=== PATIENT | female | born 1940 | race Two or more races ===

== ENCOUNTER 2024-04-16 09:57 | Outpatient (AMB) | payer MEDICARE, SELFPAY ==
[2024-04-16 10:49] VITALS: BP 157/79; PULSE 82; RESP 18; TEMP 36.6; O2SAT 95; BMI 24.6
--- NOTE | 2024-04-16 10:49 | PD.ORTHCLVIS ---
Vital signs 04/16/24 10:49 Height 1.68 m Height Method Stated Weight 69.626 kg Weight Measurement Method Standing Scale BMI 24.6 BP 157/79 H Blood Pressure Source Automatic Cuff Blood Pressure Location Right Upper Arm Position Sitting Respiration 18 Pulse 82 Pulse Source Monitor Temp 97.9 F Temp Source Temporal Artery Scan Pulse Oximetry (%) 95 Oxygen Delivery Method Room Air Med/Allergies Allergies & Medications Allergies No Known Allergies Allergy (Verified 04/16/24 10:51) Medication Reconciliation atorvastatin 10 mg tablet 10 mg PO QPM 01/09/24 [History Confirmed 04/16/24] cyclobenzaprine 5 mg tablet 5 mg PO HS 01/09/24 [History Confirmed 04/16/24] hydrochlorothiazide 25 mg tablet 25 mg PO QAM 01/09/24 [History Confirmed 04/16/24] losartan 50 mg tablet 50 mg PO DAILY 01/09/24 [History Confirmed 04/16/24] acetaminophen 500 mg tablet (Acetaminophen Extra Strength) 1,000 mg (2 x 500 mg) PO Q6H PRN pain #90 tabs 01/12/24 [Rx Confirmed 04/16/24] aspirin 81 mg tablet,delayed release 81 mg PO BID #60 tabs 01/12/24 [Rx Confirmed 04/16/24] doxycycline hyclate 100 mg tablet 100 mg PO BID #14 tabs 01/12/24 [Rx Confirmed 04/16/24] meloxicam 7.5 mg tablet 7.5 mg PO QDAY #30 tabs 01/12/24 [Rx Confirmed 04/16/24] oxycodone 5 mg tablet 5 mg PO Q6H PRN pain #28 tabs 01/12/24 [Rx Confirmed 04/16/24] sennosides 8.6 mg-docusate sodium 50 mg tablet (Senna-S) 1 tab-cap PO QDAY #30 tabs 01/12/24 [Rx Confirmed 04/16/24] cyclobenzaprine 5 mg tablet 5 mg PO QHS PRN muscle spasm #30 tabs 02/03/24 [Rx Confirmed 04/16/24] gabapentin 300 mg capsule 300 mg PO QHS #60 caps 04/16/24 [Rx] Subjective Visit Visit for: follow up visit Immunization / Flu Flu Vaccine in the Last 12 Months: Yes Flu Vaccine Exclusion Criteria: Already Received History of Present Illness Chief complaint: 6 WEEK FOLLOW UP Date of 1st surgery (if applicable): 01/12/24 Steff is 3 months postop s/p R TKA. SHe is doing well. She has significant left knee pain that is affecting her quality of life. She has tried antiinflammatories in the past with minimal relief and physical therapy. Personal History Occupation: RETIRED Red flag PMH: none Pain Pain level (0-10): 1 Pain duration: COMES AND GOES Pain location: outside (lateral) Pain quality: aching Pain timing: night and increases with activity Associated signs & symptoms: none Ambulatory data Ambulatory device: none Treatments Improvement with previous injections: No Improvement with PT: No Improvement with NSAIDS: n/a Review of Systems Review of Systems: All systems negative unless otherwise noted in HPI. Exam Exam Patient is in no acute distress and is cooperative with the examination today. Patient has a normal mood and affect. Breathing is nonlabored. In no respiratory distress. Bilateral extremities were evaluated and demonstrates sensation intact to light touch. Palpable pedal pulses are present. No significant edema is present. Right knee in ision is clean dry and intact Right total knee replacement is in good alignment position. Left knee xrays demosntrate valgus Alignment and significant arthritis. There is significant osteophytes as well and complete obliteration of the left knee joint space. Assessment and Plan Problem List (1) Degenerative arthritis of knee, bilateral: Status: Acute Plan: Patient is doing well s/p R TKA. She has significant left Knee arthritis and has failed conservative treatment. We discussed total knee replacement for the left side and she would like to proceed with surgery. She recovered very well from the right. The nature and purpose of the total knee replacement, alternative method(s) of treatment, the material risks involved, and the possibility of complications were fully explained to the patient. The patient does NOT have any of the following contraindications to TKA: - Active infection of the knee joint, OR - Active systemic bacteremia, OR - Active skin infection or open wound at surgical site, OR - Neuropathic arthritis, OR - Severe, rapidly progressive neurological disease, OR - Severe medical condition that makes risks of surgery outweigh the potential benefit The patient was told the most common risks and complications associated with a total knee replacement include, but are not limited to: blood clots in the leg, fatal pulmonary embolism, dislocation of the prosthesis, intraoperative and postoperative fractures of the femur or tibia, infection, failure of the prosthesis or grafting materials, complications from anesthesia, reactions to blood transfusions, postoperative leg length inequality, instability of the knee replacement, nerve damage or injury, vascular injury, delayed wound healing, infection, other injury or even . In addition, there are risks associated with anesthesia given during this operation. Also, the patient was told that after undergoing a total knee replacement there may still be persistent pain or disability. The patient was informed that the success of this operation in part depends upon the mechanical devices which are going to be implanted and that these devices can fail or malfunction, and may need to be repaired or replaced and there are no guarantees as to the longevity of this device or its parts and that it or its parts could fail prematurely. The patient was also notified that during the course of surgery, there may be a need to use bone graft from donors, and that any bone graft used will be carefully screened for communicable diseases, including AIDS, hepatitis, Jostin-Creutzfeldt, or other diseases, but despite the screening procedures, there is a small chance that they could contract one of these diseases. Finally, the patient was asked to follow completely and fully with all advice and recommended treatments, and that recovery and ultimate outcome are affected by their compliance with recommended treatment. We discussed the risks, benefits and treatment alternatives, and the patient is interested in proceeding with surgery. We will try to set this up as expeditiously as possible. Plan f/u weeks outpatient pt Advanced Care Planning Discussion Advance care planning discussed with:: patient Office Procedures GNS Level of Care Nursing/Assessment Patient Status: Established Patient Nursing Assessment/Reassesment: Medication Reconciliation, Update PMH in EMR and Vital Signs Coordination of Care: Complex Care and Chronic Disease 1-5, Education Complex Pt/Fam, Consent,records obtained, informed consent, Results/Orders obtained and Staff clarify orders Special Needs: Language special needs Established Patient Charge Established Patient Point Assignment: 95 Established Patient Point Charge: EP Level 3 (80-115) Past Medical History Past Medical History Have you ever been diagnosed with any of the following: Neurological Problems Seizures: No Cardiology Problems Hypercholesterolemia: Yes Congestive Heart Failure: No Hypertension: Yes Respiratory Problems Chronic Obstructive Pulmonary Disease (COPD): No Smoking: No Genital/Urinary Problems Renal Disease: No Reproductive Problems Previous Pregnancies: Yes Musculoskeletal Problems Arthritis: Yes Osteoporosis: Yes Carpal Tunnel Syndrome: Yes (bilateral) Endocrine Problems Diabetes Mellitus Type 1: No Diabetes Mellitus Type 2: No Psychologic Problems Depression: Yes Other Problems Hospitalization: No Shingles: No Blood Transfusions: Yes (platelets) Blood Transfusion Reaction: No Anesthesia Reactions: No Measles: Yes Rubella ([place] Measles): Yes Cancer: No Surgical History Total Knee Replacement: Yes Hysterectomy: Yes
== END 2024-04-16 11:20 | disposition home or self-care (01) ==
LOC: HODSRG 09:57
PROVIDERS: PCP Orthopaedic Surgery Adult Reconstructive Orthopaedic Surgery; Referring Provider Orthopaedic Surgery Adult Reconstructive Orthopaedic Surgery; Supervising Provider Orthopaedic Surgery Adult Reconstructive Orthopaedic Surgery; Visit Provider Orthopaedic Surgery Adult Reconstructive Orthopaedic Surgery
DX: M17.0 Bilateral primary osteoarthritis of knee (principal); Z96.651 Presence of right artificial knee joint; I10 Essential (primary) hypertension; E78.00 Pure hypercholesterolemia, unspecified
CPT/HCPCS: 99213; G0463

== ENCOUNTER 2024-05-12 11:00 | Outpatient (RCR) | payer MEDICARE, SELFPAY ==
--- NOTE | 2024-04-27 11:07 | PT.OIERPT ---
PT OP Initial Eval Patient Information Outpatient Physical Therapy Treatment Date: 04/27/24 Visit Reasons: Cervicalgia AND SHOULDER Medical Diagnosis: M54.2 M25.512 Treatment Dx #1: neck pain Start of Care: 04/27/24 Date of Onset: November 2023 Smoking Status Smoking Status: Never smoker Initial Assessment Subjective: Pt is 83 yr old mexican speaking female who c/o neck pain that is intense, constant and is usually 8-9/10. Increased pain with looking down, up. After sitting for a while she feels pain/pressure running up the head. She does ADL's and HH chores with pain. PLOF: prior to onset of neck pain she had no pain with HH chores or ADL's and turning the head. PMH: OA B hands, HTN, CTR, R TKA Imaging: Xray of neck in EMR Moderate to advanced degenerative disc disease C5-C6, C6-C7 with moderate, bilateral neural foraminal stenosis at these levels? ? Pt goal: less pain Objective: C/S ArOM: Flexion: full with high pain Extension: 50% with pain Rotation: R: 45%, L: 50% of full with pain TTP: high of posterior neck mm's Assessment: Pt presents with decreased ROM of C/S and pain consistent with Xray that reveals DDD. Pt will most likely feel temporary relief after therapy visits and pain will return. She has poor rehab potential to meet goals due to severity of ssx. Short Term and [employer] Goals 1. Ind with HEP ? 2. Improved B rotation to at least 60% of full ? 3. Decreased TTP of C/S paraspinals from mod to min ? 4. Pt will turn head L to R x5 with <=5/10 pain Treatment Plan 90 day POC 1. Manual therapy ? 2. Therex ? 3. Modalities as indicated, mechanical traction, estim, moist heat, ice Frequency and Duration: 1-2x a week for 6 visits Certification Dates: 04/27/24 to 06/25/24 Procedure Charges OP PT Eval Mod Complex 30 minutes: Yes
--- NOTE | 2024-05-04 12:37 | PT.ODAYNRPT ---
PT Outpatient Daily Note OP Daily Note Outpatient Physical Therapy Treatment Date: 05/04/24 Visit Reasons: Cervicalgia AND SHOULDER Subjective: Same as time of evaluation Objective: See F/S for therex MT: STM L levator scap mm x5' Mechanical traction C/S x7 at 10 lbs MHP: x7' C/S Assessment: Moderate TTP of L levator scapula mm with MT. Good response to mechanical traction Plan: Continue per POC Length of Time (minutes) of Treatment: 30 Minutes Procedure Charges Therapeutic Exercise 30 minutes: Yes
--- NOTE | 2024-05-12 13:11 | PT.ODAYNRPT ---
PT Outpatient Daily Note OP Daily Note Outpatient Physical Therapy Treatment Date: 05/12/24 Visit Reasons: Cervicalgia AND SHOULDER Subjective: Some neck pain with turning head Objective: See F/S for therex MT: STM L levator scap mm x5' Mechanical traction C/S x7 at 10 lbs MHP: x7' C/S Assessment: Moderate TTP of L levator scapula mm with MT. Good response to mechanical traction Plan: Continue per POC Length of Time (minutes) of Treatment: 30 Minutes Procedure Charges Therapeutic Exercise 30 minutes: Yes
== END 2024-05-22 23:59 | disposition home or self-care (01) ==
LOC: CPTX 11:00
PROVIDERS: PCP Nurse Practitioner Family; Referring Provider Nurse Practitioner Family; Visit Provider Nurse Practitioner Family
DX: M54.2 Cervicalgia (principal); M25.512 Pain in left shoulder
CPT/HCPCS: 97110; 97162

== ENCOUNTER → 2024-05-26 | Outpatient (CLI) | payer MEDICARE, SELFPAY ==
--- NOTE | 2024-05-26 16:00 | XR_ITS ---
Examination: CT left lower extremity, without contrast. 2-D sagittal reconstructions. 2-D coronal reconstructions. 3-D reconstructions. Date and time of exam:May 26, 2024 1624 hours INDICATIONS: Left knee pain 3 years CTDI: vol (mGy):9.73 DLP: (mGycm):721 Technique: Multiple 1.25 mm axial sections of the left lower extremity without intravenous contrast have been obtained. 2-D sagittal and coronal reconstructions have been obtained. 3-D reconstructions have been obtained. Low dose protocols were performed. One or more of the following dose reduction techniques were used; automated exposure control, adjustment of the mA and/or KV according to patient size, use of iterative reconstruction technique. Findings: Significant osteopenia Mild to moderate narrowing left hip joint No fracture or left hip dislocation Moderate to advanced tricompartment osteoarthritis, advanced lateral joint space with marked narrowing and subarticular sclerosis No fracture IMPRESSION: Moderate to advanced tricompartment osteoarthritis, advanced involving the lateral joint space
== END | disposition home or self-care (01) ==
PROVIDERS: PCP Nurse Practitioner Family; Referring Provider Orthopaedic Surgery Adult Reconstructive Orthopaedic Surgery; Visit Provider Orthopaedic Surgery Adult Reconstructive Orthopaedic Surgery
DX: M17.12 Unilateral primary osteoarthritis, left knee (principal)
CPT/HCPCS: 73700

== ENCOUNTER → 2024-06-03 | Outpatient (CLI) | payer MEDICARE, SELFPAY ==
--- NOTE | 2024-06-03 15:30 | XR_ITS ---
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 Findings: 3:00 oval mass indistinct margins taller than wide 18 x 8 x 18 mm 3:00 oval mass circumscribed 7 x 5 x 5 mm 4:00 oval mass 12 Indistinct margins 8 x 8 x 7 mm 5:00 oval mass circumscribed 12 x 8 mm IMPRESSION: BI-RADS Category 4: Suspicious for malignancy Suspicious nodules at the 3 to 4:00 position left breast Biopsy of both nodules is needed to exclude breast carcinoma These nodules are amenable to ultrasound-guided breast biopsy for diagnosis
== END | disposition home or self-care (01) ==
PROVIDERS: PCP Nurse Practitioner Family; Referring Provider Nurse Practitioner Family; Visit Provider Nurse Practitioner Family
DX: N63.25 Unspecified lump in the left breast, overlapping quadrants (principal); N63.23 Unspecified lump in the left breast, lower outer quadrant
CPT/HCPCS: 76641

== ENCOUNTER 2024-06-04 08:41 | Outpatient (AMB) | payer MEDICARE, SELFPAY ==
[2024-06-04 08:55] VITALS: BP 143/84; PULSE 95; RESP 18; TEMP 36.4; O2SAT 97; BMI 25.2
--- NOTE | 2024-06-04 08:55 | PD.ORTHCLVIS ---
Vital signs 06/04/24 08:55 Height 1.68 m Height Method Stated Weight 71.242 kg Weight Measurement Method Standing Scale BMI 25.2 BP 143/84 H Blood Pressure Source Automatic Cuff Blood Pressure Location Right Upper Arm Position Sitting Respiration 18 Pulse 95 Pulse Source Monitor Temp 97.6 F Temp Source Temporal Artery Scan Pulse Oximetry (%) 97 Oxygen Delivery Method Room Air Med/Allergies Allergies & Medications Allergies No Known Allergies Allergy (Verified 06/04/24 08:56) Medication Reconciliation atorvastatin 10 mg tablet 10 mg PO QPM 01/09/24 [History Confirmed 06/04/24] cyclobenzaprine 5 mg tablet 5 mg PO HS 01/09/24 [History Confirmed 06/04/24] hydrochlorothiazide 25 mg tablet 25 mg PO QAM 01/09/24 [History Confirmed 06/04/24] losartan 50 mg tablet 50 mg PO DAILY 01/09/24 [History Confirmed 06/04/24] acetaminophen 500 mg tablet (Acetaminophen Extra Strength) 1,000 mg (2 x 500 mg) PO Q6H PRN pain #90 tabs 01/12/24 [Rx Confirmed 06/04/24] meloxicam 7.5 mg tablet 7.5 mg PO QDAY #30 tabs 01/12/24 [Rx Confirmed 06/04/24] cyclobenzaprine 5 mg tablet 5 mg PO QHS PRN muscle spasm #30 tabs 02/03/24 [Rx Confirmed 06/04/24] gabapentin 300 mg capsule 300 mg PO QHS #60 caps 04/16/24 [Rx Confirmed 06/04/24] alendronate 70 mg tablet 70 mg PO QWEEK 06/04/24 [History Confirmed 06/04/24] Subjective Visit Visit for: follow up visit and knee Immunization / Flu Flu Vaccine in the Last 12 Months: Yes Flu Vaccine Exclusion Criteria: Already Received History of Present Illness Chief complaint: Pre-op L TKA Date of 1st surgery (if applicable): 01/12/24 Steff is 4.5 months postop s/p R TKA. SHe is doing well. She is here today for her preop visit for the left knee. The left knee is affecting her quality life and happiness and she is excited to get this done. We spent over 20 minutes answering all her questions Personal History Occupation: unemployed Red flag PMH: none Pain Pain level (0-10): 6 Pain duration: constant Pain location: inside (medial), outside (lateral), anterior and posterior Pain quality: sharp, dull and aching Pain timing: increases with activity and stairs Associated signs & symptoms: weakness and stiffness Ambulatory data Ambulatory device: cane Treatments Improvement with previous injections: No Improvement with PT: No Improvement with NSAIDS: n/a Review of Systems Review of Systems: All systems negative unless otherwise noted in HPI. Exam Exam Patient is in no acute distress and is cooperative with the examination today. Patient has a normal mood and affect. Breathing is nonlabored. In no respiratory distress. Bilateral extremities were evaluated and demonstrates sensation intact to light touch. Palpable pedal pulses are present. No significant edema is present. Right knee in ision is clean dry and intact Right total knee replacement is in good alignment position. Left knee xrays demosntrate valgus Alignment and significant arthritis. There is significant osteophytes as well and complete obliteration of the left knee joint space. Assessment and Plan Problem List (1) Degenerative arthritis of knee, bilateral: Status: Acute Plan: Patient is doing well s/p R TKA. She has significant left Knee arthritis and has failed conservative treatment. We discussed total knee replacement for the left side and she would like to proceed with surgery. She recovered very well from the right. The nature and purpose of the total knee replacement, alternative method(s) of treatment, the material risks involved, and the possibility of complications were fully explained to the patient. The patient does NOT have any of the following contraindications to TKA: - Active infection of the knee joint, OR - Active systemic bacteremia, OR - Active skin infection or open wound at surgical site, OR - Neuropathic arthritis, OR - Severe, rapidly progressive neurological disease, OR - Severe medical condition that makes risks of surgery outweigh the potential benefit The patient was told the most common risks and complications associated with a total knee replacement include, but are not limited to: blood clots in the leg, fatal pulmonary embolism, dislocation of the prosthesis, intraoperative and postoperative fractures of the femur or tibia, infection, failure of the prosthesis or grafting materials, complications from anesthesia, reactions to blood transfusions, postoperative leg length inequality, instability of the knee replacement, nerve damage or injury, vascular injury, delayed wound healing, infection, other injury or even . In addition, there are risks associated with anesthesia given during this operation. Also, the patient was told that after undergoing a total knee replacement there may still be persistent pain or disability. The patient was informed that the success of this operation in part depends upon the mechanical devices which are going to be implanted and that these devices can fail or malfunction, and may need to be repaired or replaced and there are no guarantees as to the longevity of this device or its parts and that it or its parts could fail prematurely. The patient was also notified that during the course of surgery, there may be a need to use bone graft from donors, and that any bone graft used will be carefully screened for communicable diseases, including AIDS, hepatitis, Jostin-Creutzfeldt, or other diseases, but despite the screening procedures, there is a small chance that they could contract one of these diseases. Finally, the patient was asked to follow completely and fully with all advice and recommended treatments, and that recovery and ultimate outcome are affected by their compliance with recommended treatment. We discussed the risks, benefits and treatment alternatives, and the patient is interested in proceeding with surgery. We will try to set this up as expeditiously as possible. Plan f/u weeks outpatient pt Advanced Care Planning Discussion Advance care planning discussed with:: patient Office Procedures GNS Level of Care Nursing/Assessment Patient Status: Established Patient Nursing Assessment/Reassesment: Medication Reconciliation, Update PMH in EMR and Vital Signs Coordination of Care: Complex Care and Chronic Disease 1-5, Education Complex Pt/Fam, Consent,records obtained, informed consent, 2-3 Insurance Autorizations needed, Results/Orders obtained and Staff clarify orders Special Needs: Language special needs Established Patient Charge Established Patient Point Assignment: 115 Established Patient Point Charge: EP Level 3 (80-115) Past Medical History Past Medical History Have you ever been diagnosed with any of the following: Neurological Problems Seizures: No Cardiology Problems Hypercholesterolemia: Yes Congestive Heart Failure: No Hypertension: Yes Respiratory Problems Chronic Obstructive Pulmonary Disease (COPD): No Smoking: No Genital/Urinary Problems Renal Disease: No Reproductive Problems Previous Pregnancies: Yes Musculoskeletal Problems Arthritis: Yes Osteoporosis: Yes Carpal Tunnel Syndrome: Yes (bilateral) Endocrine Problems Diabetes Mellitus Type 1: No Diabetes Mellitus Type 2: No Psychologic Problems Depression: Yes Other Problems Hospitalization: No Shingles: No Blood Transfusions: Yes (platelets) Blood Transfusion Reaction: No Anesthesia Reactions: No Measles: Yes Rubella ([place] Measles): Yes Cancer: No Surgical History Total Knee Replacement: Yes Hysterectomy: Yes
== END 2024-06-04 09:10 | disposition home or self-care (01) ==
LOC: HODSRG 08:41
PROVIDERS: PCP Nurse Practitioner Family; Referring Provider Nurse Practitioner Family; Supervising Provider Orthopaedic Surgery Adult Reconstructive Orthopaedic Surgery; Visit Provider Orthopaedic Surgery Adult Reconstructive Orthopaedic Surgery
DX: M17.0 Bilateral primary osteoarthritis of knee (principal); I10 Essential (primary) hypertension; E78.00 Pure hypercholesterolemia, unspecified; Z96.651 Presence of right artificial knee joint
CPT/HCPCS: 99213; G0463

== ENCOUNTER 2024-06-10 10:00 | Outpatient (RCR) | payer MEDICARE, SELFPAY ==
--- NOTE | 2024-05-26 11:23 | PT.ODAYNRPT ---
PT Outpatient Daily Note OP Daily Note Outpatient Physical Therapy Treatment Date: 05/26/24 Visit Reasons: neck/shoulder pain Subjective: Some neck pain with turning head and she points to the L side Objective: See F/S for therex MT: STM L levator scap mm x5' Mechanical traction C/S x7 at 10 lbs MHP: x7' C/S Assessment: Moderate TTP of L levator scapula mm with MT that radiates into the back of the head. Good response to mechanical traction Plan: Continue per POC Length of Time (minutes) of Treatment: 30 Minutes Procedure Charges Therapeutic Exercise 30 minutes: Yes
--- NOTE | 2024-06-02 11:26 | PTNOTE_ITS ---
PT Outpatient Daily Note OP Daily Note Outpatient Physical Therapy Treatment Date: 06/02/24 Visit Reasons: neck/shoulder pain Subjective: Pt reports neck is the same, no changes in symptoms to report at this time. Objective: Please see flow sheet for ther ex list. Assessment: Interventions completed with pain, poor activity tolerance due to aggravating symptoms. Plan: Pt has one visit left. Length of Time (minutes) of Treatment: 30 Minutes INTERMEDIATE ACCOUNTANT Service Modifier Method I: Divide the number of min of care provided by the INTERMEDIATE ACCOUNTANT/JENNIFER by the total min of care provided then multiply by 100. If greater than 11 percent modifier is required. Method II: Divide the total time of care provided to patient by 10 (round to the nearest whole number) and add 1 min. to set the minimum time requirement. If treatment total was 60 min., then 10% of 6 min PT CQ modifier applied: CQ Modifier applied Procedure Charges Therapeutic Exercise 30 minutes: Yes
--- NOTE | 2024-06-10 14:04 | PT.ODS1RPT ---
PT OP Progress/Discharge Note Date of Service: 06/10/24 Progress Note/DC Note Progress Note/Discharge Note: DC Note Patient Information Visit Reasons: neck/shoulder pain Service Continue Service or Discharge: Discharge Discharge Date: 06/10/24 Status Subjective: Some neck pain with turning head and she points to the L side. Temporary relief with therapy visits. Objective: See F/S for therex MT: STM L levator scap mm x5' Mechanical traction C/S x7 at 10 lbs MHP: x7' C/S C/S AROM: Rotation: R: 40% of full L: 60% TTP: moderate/min of paraspinals Assessment: Pt has attended 6/6 sessions with fair progress with therapy goals. There is less TTP of L levator scapula mm with manual therapy. Pt has a little better rotation to the L to meet the goal but the R is still limited. and hasn't met the goal. Good response to mechanical traction for temporary relief. Progress with goals has plateaued. Plan: D/C with HEP Procedure Charges Therapeutic Exercise 30 minutes: Yes
== END 2024-06-22 23:59 | disposition home or self-care (01) ==
LOC: CPTX 10:00
PROVIDERS: PCP Nurse Practitioner Family; Referring Provider Nurse Practitioner Family; Visit Provider Nurse Practitioner Family
DX: M54.2 Cervicalgia (principal); M25.512 Pain in left shoulder
CPT/HCPCS: 97110

== ENCOUNTER → 2024-06-28 | Day surgery (SDC) | payer MEDICARE, SELFPAY ==
[2024-06-25 11:46] VITALS: BMI 25.4
[2024-06-25 13:17] LABS: Basophils % (Auto) 1 % (0-2.5); Eosinophils # (Auto) 0.3 Thou/mm3 (0.0-0.5); Eosinophils % (Auto) 4 % (0-10); Hematocrit 37.9 % (36.0-46.0); Hemoglobin 12.8 g/dL (12.0-16.0); Immature Granulocytes % (Auto) 0 % (0-0); Immature Granulocytes Auto 0.02 Thou/mm3 (0.00-0.00); Lymphocytes # (Auto) 2.2 Thou/mm3 (1.0-4.8); Lymphocytes % (Auto) 27 % (10-50); Mean Corpuscular HGB Conc 33.8 g/dl (31.0-37.0); Mean Corpuscular Hemoglobin 26.1 pg (25.0-35.0); Mean Corpuscular Volume 77 fL (80-100); Monocytes % (Auto) 13 % (0-12); Neutrophils # (Auto) 4.4 Thou/mm3 (1.8-7.7); Neutrophils % (Auto) 56 % (37-80); Nucleated Red Blood Cell % 0 /100 WBC (0); Platelet Count 306 Thou/mm3 (140-440); RDW Standard Deviation 40.4 fL (36.4-46.3); Red Blood Count 4.91 Miln/mm3 (4.00-5.20)
[2024-06-25 13:31] LABS: INR 1.2 (0.9-1.3); Partial Thromboplastin Time 28.5 Seconds (22.0-36.0); Prothrombin Time 12.8 Seconds (9.0-12.2)
[2024-06-25 13:39] LABS: Alanine Aminotransferase 22 U/L (10-49); Albumin, Serum 4.9 gm/dL (3.4-4.8); Albumin/Globulin Ratio 1.6 (1.2-2.2); Alkaline Phosphatase 78 U/L (46-116); Anion Gap 10 (7-16); Aspartate Amino Transferase 27 U/L (0-34); BUN/Creatinine Ratio 16 Ratio (12-20); Bilirubin,Total 0.5 mg/dL (0.3-1.2); Blood Urea Nitrogen 13 mg/dL (9-23); Calcium 9.4 mg/dL (8.3-10.6); Calcium (Corrected) 9.4 mg/dL (8.5-10.1); Carbon Dioxide 25.6 mMol/L (20.0-31.0); Chloride 101 mMol/L (98-107); Creatinine (Component) 0.8 mg/dL (0.6-1.3); Estimated Creatinine Clearance 53.9 mL/min (>60); Globulin 3.1 gm/dL (2.3-3.5); Glucose 89 mg/dL (74-106); Osmolality,Calculated 272 (275-295); Sodium 137 mMol/L (136-145); eGFR > 60 See Note
[2024-06-28 06:10] VITALS: BP 149/68; PULSE 73; RESP 14; TEMP 36.5; O2SAT 97; BMI 25.4
--- NOTE | 2024-06-28 06:23 | SUR.PREOP ---
Pt c/o productive cough with yellow thick phlegm which has progressively gotten worse since Wendy. States she is also dealing with a possible UTI and is currently taking Metronidazole for that which began 06/22/24. C/O back pain as well. Dr. Casillas and Dr. Prasad made aware, both agree to reschedule procedure due to patient's symptoms.
--- NOTE | 2024-06-28 06:25 | SUR.PREOP ---
Pt made aware to reschedule procedure and see her primary care physician for further care.
== END | disposition home or self-care (01) ==
LOC: S2EX 06:08
PROVIDERS: Anesthesiology; PCP Nurse Practitioner Family; Referring Provider Orthopaedic Surgery Adult Reconstructive Orthopaedic Surgery; Visit Provider Orthopaedic Surgery Adult Reconstructive Orthopaedic Surgery
PROC: (CPT 27447; principal; 2024-06-28 07:30)
DX: M17.12 Unilateral primary osteoarthritis, left knee (principal); Z53.9 Procedure and treatment not carried out, unspecified reason
CPT/HCPCS: 27447; 36415; 80053; 85025; 85610; 85730

== ENCOUNTER 2024-07-12 18:46 | Day surgery (SDC) | payer MEDICARE, SELFPAY ==
[2024-07-09 06:49] VITALS: BMI 25.7
[2024-07-09 09:11] LABS: Basophils # (Auto) 0.1 Thou/mm3 (0.0-0.2); Basophils % (Auto) 1 % (0-2.5); Eosinophils # (Auto) 0.2 Thou/mm3 (0.0-0.5); Eosinophils % (Auto) 3 % (0-10); Hemoglobin 12.3 g/dL (12.0-16.0); Immature Granulocytes % (Auto) 0 % (0-0); Immature Granulocytes Auto 0.02 Thou/mm3 (0.00-0.00); Lymphocytes # (Auto) 2.3 Thou/mm3 (1.0-4.8); Lymphocytes % (Auto) 26 % (10-50); Mean Corpuscular HGB Conc 33.2 g/dl (31.0-37.0); Mean Corpuscular Hemoglobin 25.8 pg (25.0-35.0); Mean Corpuscular Volume 78 fL (80-100); Monocytes # (Auto) 0.8 Thou/mm3 (0.0-0.8); Monocytes % (Auto) 9 % (0-12); Neutrophils # (Auto) 5.3 Thou/mm3 (1.8-7.7); Neutrophils % (Auto) 61 % (37-80); Nucleated Red Blood Cell % 0 /100 WBC (0); Platelet Count 417 Thou/mm3 (140-440); RDW Standard Deviation 39.7 fL (36.4-46.3); Red Blood Count 4.76 Miln/mm3 (4.00-5.20); White Blood Count 8.8 Thou/mm3 (3.6-11.0)
[2024-07-09 09:21] LABS: Alanine Aminotransferase 24 U/L (10-49); Albumin, Serum 4.8 gm/dL (3.4-4.8); Albumin/Globulin Ratio 1.5 (1.2-2.2); Alkaline Phosphatase 78 U/L (46-116); Anion Gap 10 (7-16); Aspartate Amino Transferase 27 U/L (0-34); BUN/Creatinine Ratio 20 Ratio (12-20); Bilirubin,Total 0.5 mg/dL (0.3-1.2); Blood Urea Nitrogen 12 mg/dL (9-23); Calcium 9.7 mg/dL (8.3-10.6); Calcium (Corrected) 9.7 mg/dL (8.5-10.1); Carbon Dioxide 27.9 mMol/L (20.0-31.0); Chloride 102 mMol/L (98-107); Creatinine (Component) 0.6 mg/dL (0.6-1.3); Estimated Creatinine Clearance 72.3 mL/min (>60); Globulin 3.3 gm/dL (2.3-3.5); Glucose 103 mg/dL (74-106); Osmolality,Calculated 279 (275-295); Potassium 3.3 mMol/L (3.4-5.1); Sodium 140 mMol/L (136-145); Total Protein 8.1 gm/dL (5.7-8.2); eGFR > 60 See Note
[2024-07-09 09:54] LABS: INR 1.2 (0.9-1.3); Partial Thromboplastin Time 26.7 Seconds (22.0-36.0); Prothrombin Time 12.6 Seconds (9.0-12.2)
[2024-07-12] VITALS (21 sets, daily range): BP systolic 101–140; BP diastolic 57–91; PULSE 66–94; RESP 13–20; TEMP 36.1–36.5; O2SAT 93–99; BMI 25.1
[2024-07-12] MEDS: PREGABALIN 75 MG CAPSULE PO (10:37)
[2024-07-12] MEDS: ACETAMINOPHEN 325 MG TABLET 650 MG PO (10:37)
[2024-07-12] MEDS: MELOXICAM 7.5 MG TABLET PO (10:37)
[2024-07-12] MEDS: RINGERS LACTATED 1000 ML 1,000 ML 20 ML IV (10:38)
--- NOTE | 2024-07-12 14:00 | XR_ITS ---
Examination: Knee, left , 3 views Technique: Knee AP, lateral, oblique 3 views Date and time of exam: July 12, 2024 1419 hours INDICATIONS: Postop knee arthroplasty FINDINGS: Significant osteopenia Total left knee arthroplasty. Satisfactory alignment No fractures IMPRESSION: Total left knee arthroplasty with satisfactory alignment
--- NOTE | 2024-07-12 14:37 | PD.SUROPNT ---
Date of Procedure 07/12/24 Pre Op Diagnosis left knee osteoarthritis Post Op Diagnosis left knee osteoarthritis Procedure left total knee replacement Findings full thickness cartilage loss and osteophytes, osteoporotic bone Procedure Description Indication: The patient is a 83 year old who has a long history of left knee pain. X-rays show degenerative arthritis involving the knee. Over the past several years the patient has had increasing pain, progressive limitation in function. He has failed conservative measures including activity modification, physical therapy, injections, anti-inflammatories, and assistive devices. After a lengthy discussion of the risks and benefits, the patient presents now for total knee replacement. The nature and purpose of the total knee replacement, alternative method(s) of treatment, the material risks involved, and the possibility of complications were fully explained to the patient. The patient was told the most common risks and complications associated with a total knee replacement include, but are not limited to blood clots in the leg, fatal pulmonary embolism, dislocation of the prosthesis, intraoperative and postoperative fractures of the femur or tibia, infection, failure of the prosthesis or grafting materials, complications from anesthesia, reactions to blood transfusions, postoperative leg length inequality, instability of the knee replacement, nerve damage or injury, vascular injury, delayed wound healing, infections, other injury or even . In addition, there are risks associated with anesthesia given during this operation, temporary or permanent numbness on the skin lateral to the incision can be a complication unique to total knee surgery, and kneeling can be painful after knee replacement surgery. Also, the patient was told that after undergoing a total knee replacement there may still be pain or disability. We discussed with the patient that we will be using a robot-assisted technology. We discussed that there is a possibility of converting to manual instrumentation. The patient was informed that the success of this operation in part depends upon the mechanical devices which are going to be implanted and that these devices can fail or malfunction, and may need to be repaired or replaced and there are no guarantees as to the longevity of this device or its part and that it or its parts could fail prematurely. Finally, the patient was asked to follow completely and fully with all advice and recommended treatments, and that recovery and ultimate outcome are affected by their compliance with recommended treatment. Surgical technique: Patient was marked and consented in the pre-operative area. The patient was brought to the operating room and placed on the operating table in a supine position. Prior to positioning, a timeout procedure was performed between the surgeon, the anesthesiologist, and the nursing staff where the patient and the operative side were identified and confirmed. After adequate general anesthetic was obtained, the left lower extremity was prepped and draped in the usual sterile fashion. A weight based dose of Cefazolin were administered within 1 hour prior to incision. The robot was preregistered and calirated before the incision. The extremity was exsanguinated with an esmarch badge and tourniquet inflated to 250mmHg. A midline incision was made. A median parapatellar arthrotomy was made. The patella was subluxed laterally. A medial release was performed to expose the medial tibia. His femoral and tibial pins were placed through an intra incisional manner for both cases. Every effort was made to ensure that the distalmost aspect of the pin was hung in the second cortex. The arrays were then tightened several times to ensure that it was fixed for the remainder of the case. Both femoral and tibial checkpoints were then placed. We then went through the registration process of the bone. We then assessed the knee deformity and attempted to correct it. We also used the robot to aid in judging laxity in both extension and flexion. Final based on laxity and alignment we changed the preoperative assessment to obtain proper proper implant positioning and to correct deformity. Attention was then placed to the tibia. We made a tibial cut using the robot ensuring that both the MCL and the patella tendon were protected with retractors. We then went to the femur and made the posterior cut followed by the anterior cut and the anterior chamfer. The bone was then removed and we made a distal femur cut and a posterior chamfer cut. We verified all cuts. There was found to be some attenuation of the mcl. A trial reduction was performed with a size 5 femoral component and a size 4 keeled tibial component. CR implants were tried and we prepared it ultimately for a PS. The patella tracked centrally, and no lateral retinacular release was necessary. The trial implants were removed. The arrays, pins, and checkpoints were all removed. We performed a verification that all pins were removed. The cut bone surfaces were lavaged. A size 5 left femoral component, a size 4 keeled tibial component were impacted into position using 2 bags of palacos. A trial insert was placed and a size 31 patella was cemented into position. The knee was left in extension until the cement hardened. The knee was felt to be well balanced in the sagittal and coronal plane with a PS. We ultimately decided for a TS articular insert given the mild attenuation of the MCL. The final 4x11 mm TS articular insert was impacted into the tibial tray. The knee was brought out to full extension, flexed up to 120 degrees. It was stable to varus and valgus stress and appropriately balanced in flexion and extension. The wounds were copiously irrigated following deflation of tourniquet. The medial retinaculum was reapproximated with #1 vicryl and quill. The subcutaneous tissues were closed with 0 and 2-0 interrupted Vicryl. The skin was closed with 3-0 Monofilament V loc suture. A sterile dressing was applied. The patient was transferred to a bed and brought to recovery in stable condition. The patient tolerated the procedure well. There were no intraoperative complications. Sponge and needle counts were correct times 2. As the attending surgeon, I attest I was present and performed the entire operation. Grafts/Implants Size 5 PS Femur Size 4 Tibia 11mm poly TS 31mm patella 2 bags of palacos Anesthesia spinal [facility] Pathology / specimen None Pathology comment: none Estimated Blood Loss 150 Condition Stable Disposition same day Surgeon Phu Prasad MD Surgical Staff Operation Date: 07/12/24 15:00 Case media services coordinatorprepress manager: Dory Richard
--- NOTE | 2024-07-12 14:50 | SUR.PHASEI ---
1450 Patient arrived to recovery resting comfortably in bed, drowsy and talking with staff, on oxygen 6L via oxy mask, breathing unlabored, vital signs stable, denies pain, dressing intact to left knee; prineo, telfa, abd, webril, bridget wraps, no bleeding noted, patient has good circulation to left lower extremity; skin color normal for patient and skin warm to touch, bilateral dorsalis pedis pulses present when palpated, post spinal anesthesia assessment complete patient has dermatome sensation at L1-groin, will monitor, report received from Niharika GOMEZ/Merrick GRANT and Juan HARMON
--- NOTE | 2024-07-12 15:30 | SUR.PHASEI ---
2515 Dr. Prasad at bedside stated, XRAY completed in OR at end of case no need for XRAY in recovery
--- NOTE | 2024-07-12 15:54 | SUR.PHASEI ---
1554 patient falling asleep oxygen going to 91-93%, oxygen therapy initiated oxy mask 3L
--- NOTE | 2024-07-12 16:43 | SUR.PHASEI ---
1643 Report given to Neha Mendiola RN
--- NOTE | 2024-07-12 16:43 | SUR.PHASEI ---
report from Neha Lyons, RN, pt sitting up in bed drinking oral fluids, breathing unlabored, dressing to left knee clean, dry, and intact, VS stable
--- NOTE | 2024-07-12 17:32 | SUR.PHASEII ---
pt states she wishes not to have any interventions if her heart stops, Dr Prasad made aware and 3 way call was made with interpreter deaf Deepak ID#[id number] to confirm pt wishes for DNR code status, pt confirms she wishes to not be resuscitated and requests no interventions and that she wishes to have DNR code status, telephone order for DNR code status taken from Dr Prasad with read back. Will place order.
--- NOTE | 2024-07-12 18:30 | SUR.PHASEI ---
pt transferred to bed with berta
[2024-07-12] MEDS: ACETAMINOPHEN 500 MG TABLET 1000 MG PO (18:40)
--- NOTE | 2024-07-12 18:40 | SUR.PHASEI ---
pt awake, alert, able to follow commands, breathing unlabored, dressing to left knee clean, dry, and intact, VS stable, report called to Batsheva HARMON, pt transferred to room at this time with all belongings and daughter at bedside.
--- NOTE | 2024-07-12 19:19 | PC.NURSE ---
Received pt.on carrie at 1848. Pt. is resting comforTABLE, DAUGHTER ON BED SIDE. THE CARE WILL PASS ON TO APPLICATION PROCESSOR.
[2024-07-12] MEDS: ASPIRIN EC 81 MG TABEC PO (20:58)
[2024-07-12] MEDS: CYCLObenzaPRINE 5 MG TABLET PO (20:58)
[2024-07-13] VITALS: BP 115/67; PULSE 86; RESP 18; TEMP 36.3; O2SAT 96
[2024-07-13] MEDS: ACETAMINOPHEN 500 MG TABLET 1000 MG PO ×3 (00:09→11:56)
[2024-07-13 04:00] VITALS: BP 108/66; PULSE 77; PULSE 88; RESP 18; TEMP 36.6; O2SAT 94
[2024-07-13 07:33] VITALS: BP 120/64; PULSE 79; RESP 18; TEMP 36.2; O2SAT 94
[2024-07-13] MEDS: PANTOPRAZOLE INJ 40 MG VIAL IV (09:03)
[2024-07-13 09:04] VITALS: BP 120/64; PULSE 79
[2024-07-13] MEDS: hydroCHLOROthiazide 12.5 MG CAPSULE 25 MG PO (09:04)
[2024-07-13] MEDS: ASPIRIN EC 81 MG TABEC PO (09:04)
[2024-07-13] MEDS: LOSARTAN POTASSIUM 25 MG TABLET 50 MG PO (09:04)
[2024-07-13] MEDS: oxyCODONE HCL 5 MG IR TAB PO (09:15)
--- NOTE | 2024-07-13 09:40 | PC.SS ---
Initial assessment: this is 83 year old female admitted for LT knee. Patient appeared alert and oriented. Patient informs she lives at home with daughter Vero and granddaughter. Patient assigned her daughter as her emergency contact. Patient confirmed home address. Patient informs she is independent with ADL's. Patient informs she has a rollator walker. Patient's PCP is Dr. Hung Howell. [facility]. Patient plans to return home upon discharge, family to assist with transportation home. D/c plan: home Next of kin: daughter, Vero Mccoy
[2024-07-13 11:46] VITALS: BP 116/69; PULSE 74; RESP 18; TEMP 36.2; O2SAT 94
[2024-07-13 13:07] VITALS: BMI 15.0
== END 2024-07-13 15:00 | disposition home or self-care (01) ==
LOC: S2EX 19:00 → S3NX 07-13 13:49
PROVIDERS: Anesthesiology; PCP Nurse Practitioner Family; Referring Provider Orthopaedic Surgery Adult Reconstructive Orthopaedic Surgery; Visit Provider Orthopaedic Surgery Adult Reconstructive Orthopaedic Surgery
PROC: (CPT 27447; principal; 2024-07-12 14:45)
DX: M17.12 Unilateral primary osteoarthritis, left knee (principal); M81.0 Age-related osteoporosis without current pathological fracture
CPT/HCPCS: 27447; 20985; 36415; 73560; 80053; 85025; 85610; 85730; 87081; 97162; A4217; C1713; C1776; J0690; J1100; J2371; J2470; J2704; J2795; J3490; J7030; J7120; J7999; A4648; A4649; A9270

== ENCOUNTER 2024-07-27 14:28 | Outpatient (AMB) | payer MEDICARE, SELFPAY ==
--- NOTE | 2024-07-27 15:12 | PD.ORTHCLVIS ---
Vital signs 07/27/24 15:13 Height 1.65 m Height Method Stated Weight 68.4 kg Weight Measurement Method Estimated by Patient BMI 25.1 BP 110/71 Blood Pressure Source Automatic Cuff Blood Pressure Location Right Upper Arm Position Sitting Respiration 18 Pulse 93 Pulse Source Monitor Temp 98.2 F Temp Source Temporal Artery Scan Pulse Oximetry (%) 98 Oxygen Delivery Method Room Air Med/Allergies Allergies & Medications Allergies No Known Allergies Allergy (Verified 07/27/24 15:13) Medication Reconciliation cyclobenzaprine 5 mg tablet 5 mg PO HS 01/09/24 [History Confirmed 07/27/24] hydrochlorothiazide 25 mg tablet 25 mg PO QAM 01/09/24 [History Confirmed 07/27/24] losartan 50 mg tablet 50 mg PO DAILY 01/09/24 [History Confirmed 07/27/24] alendronate 70 mg tablet 70 mg PO QWEEK 06/04/24 [History Confirmed 07/27/24] benzonatate 100 mg capsule 100 mg PO BID PRN Cough 06/25/24 [History Confirmed 07/27/24] acetaminophen 500 mg tablet (Acetaminophen Extra Strength) 1,000 mg (2 x 500 mg) PO Q6H PRN pain #90 tabs 07/13/24 [Rx Confirmed 07/27/24] aspirin 81 mg tablet,delayed release 81 mg PO BID #60 tabs 07/13/24 [Rx Confirmed 07/27/24] doxycycline hyclate 100 mg tablet 100 mg PO BID #14 tabs 07/13/24 [Rx Confirmed 07/27/24] gabapentin 300 mg capsule 300 mg PO .qhs #30 caps 07/13/24 [Rx Confirmed 07/27/24] oxycodone 5 mg tablet 5 mg PO Q6H PRN pain #28 tabs 07/13/24 [Rx Confirmed 07/27/24] sennosides 8.6 mg-docusate sodium 50 mg tablet (Senna-S) 1 tab-cap PO QDAY #30 tabs 07/13/24 [Rx Confirmed 07/27/24] Exam Exam Patient is in no acute distress and is cooperative with the examination today. Patient has a normal mood and affect. Breathing is nonlabored. In no respiratory distress. Bilateral extremities were evaluated and demonstrates sensation intact to light touch. Palpable pedal pulses are present. No significant edema is present. Right knee in ision is clean dry and intact. Range of motion 0 120 degrees Left knee incisions clean dry intact. Range of motion 0 to 110 degrees. There is minimal swelling Right total knee replacement is in good alignment position. Left knee xrays demosntrate valgus Alignment and significant arthritis. There is significant osteophytes as well and complete obliteration of the left knee joint space. Assessment and Plan Problem List (1) Degenerative arthritis of knee, bilateral: Status: Acute Plan: Patient is doing well s/p R TKA. She is now status post left total knee replacement and is doing well. She has expected pain at 2 weeks but is doing well. She should continue to finish her recent DVT prophylaxis. Plan f/u weeks outpatient pt Advanced Care Planning Discussion Advance care planning discussed with:: patient Office Procedures GNS Level of Care Nursing/Assessment Patient Status: Established Patient Nursing Assessment/Reassesment: Medication Reconciliation, Update PMH in EMR and Vital Signs Coordination of Care: Complex Care and Chronic Disease 1-5, Education Complex Pt/Fam, Consent,records obtained, informed consent, Results/Orders obtained and Staff clarify orders Special Needs: Language special needs Established Patient Charge Established Patient Point Assignment: 95 Established Patient Point Charge: EP Level 3 (80-115) MA Intake Visit Data Collection New Patient or Established: Established Patient (seen at [facility] within 3 years) Reason for Visit:: 2 week post op Seen by Clinical Staff ONLY (RN/MA): No Verbal consent obtained for Telemed visit?: No Youth Nutritional Monitor Required: Yes PCP or OBGYN visit in last 3 months: Yes Hx Now: No Do You Feel Safe at Home: Yes Authorities Contacted: N/A Questionairres Past Medical History Past Medical History Have you ever been diagnosed with any of the following: Neurological Problems Seizures: No Cardiology Problems Hypercholesterolemia: Yes Congestive Heart Failure: No Hypertension: Yes Varicose Veins: Yes Respiratory Problems Chronic Obstructive Pulmonary Disease (COPD): No Smoking: No Genital/Urinary Problems Renal Disease: No Reproductive Problems Previous Pregnancies: Yes Musculoskeletal Problems Arthritis: Yes Osteoporosis: Yes Carpal Tunnel Syndrome: Yes (bilateral) Endocrine Problems Diabetes Mellitus Type 1: No Diabetes Mellitus Type 2: No Psychologic Problems Depression: Yes Other Problems Hospitalization: Yes (surgery) Shingles: No Blood Transfusions: No Blood Transfusion Reaction: No Anesthesia Reactions: No Measles: Yes Rubella ([place] Measles): Yes Clostridium Difficile: No Cancer: No Surgical History Total Knee Replacement: Yes Hysterectomy: Yes Subjective Visit Visit for: post op #1 and knee Immunization / Flu Flu Vaccine in the Last 12 Months: Yes Flu Vaccine Exclusion Criteria: Already Received History of Present Illness Chief complaint: 2 week post op Patient is 2 weeks postop status post left total knee replacement. She is doing well. SHe is using a walker Pain Pain level (0-10): 10 Pain duration: all day Pain location: inside (medial), outside (lateral), anterior and posterior Pain quality: sharp, dull and aching Pain timing: night and increases with activity Associated signs & symptoms: numbness Ambulatory data Ambulatory device: walker Treatments Improvement with previous injections: No Improvement with PT: No Improvement with NSAIDS: no Review of Systems Review of Systems: All systems negative unless otherwise noted in HPI.
[2024-07-27 15:13] VITALS: BP 110/71; PULSE 93; RESP 18; TEMP 36.8; O2SAT 98; BMI 25.1
== END 2024-07-27 15:29 | disposition home or self-care (01) ==
LOC: HODSRG 14:28
PROVIDERS: PCP Family Medicine; Referring Provider Family Medicine; Supervising Provider Orthopaedic Surgery Adult Reconstructive Orthopaedic Surgery; Visit Provider Orthopaedic Surgery Adult Reconstructive Orthopaedic Surgery
DX: M17.0 Bilateral primary osteoarthritis of knee (principal); Z96.652 Presence of left artificial knee joint; I10 Essential (primary) hypertension; E78.00 Pure hypercholesterolemia, unspecified
CPT/HCPCS: 99213; G0463

== ENCOUNTER → 2024-08-05 | Outpatient (CLI) | payer MEDICARE, SELFPAY ==
--- NOTE | 2024-08-05 10:34 | XR_ITS ---
Examination: Pelvic ultrasound, transabdominal, complete Technique: Transabdominal ultrasound of the pelvis performed using grayscale imaging Date and time of exam: August 05, 2024 1052 hours INDICATIONS: Pelvic pain beginning one month ago, hysterectomy FINDINGS: Absent uterus Absent ovaries No free fluid in the pelvis No pelvic mass IMPRESSION: No free fluid in the pelvis No pelvic mass
== END | disposition home or self-care (01) ==
PROVIDERS: PCP Family Medicine; Referring Provider Nurse Practitioner Family; Visit Provider Nurse Practitioner Family
DX: R10.2 Pelvic and perineal pain (principal)
CPT/HCPCS: 76856

== ENCOUNTER → 2024-08-23 | Outpatient (CLI) | payer MEDICARE, SELFPAY ==
--- NOTE | 2024-08-23 10:00 | XR_ITS ---
Examination: Bilateral AP knees AP lateral axial left knee 3 views TECHNIQUE: Bilateral AP knees standing single view Standing PA lateral axial left knee 3 views total 4 views Exam date and time: August 23, 2024 1055 hours INDICATIONS: Left knee replacement July 12, 2024 FINDINGS: Prominent osteopenia Bilateral total knee arthroplasties with satisfactory alignment No loosening of the prosthetic components No left patellar dislocation IMPRESSION: Bilateral total knee arthroplasties with satisfactory alignment
== END | disposition home or self-care (01) ==
PROVIDERS: PCP Nurse Practitioner Family; Referring Provider Orthopaedic Surgery Adult Reconstructive Orthopaedic Surgery; Visit Provider Orthopaedic Surgery Adult Reconstructive Orthopaedic Surgery
DX: M17.12 Unilateral primary osteoarthritis, left knee (principal); Z96.652 Presence of left artificial knee joint
CPT/HCPCS: 73564

== ENCOUNTER 2024-08-24 14:34 | Outpatient (AMB) | payer MEDICARE, SELFPAY ==
--- NOTE | 2024-08-24 14:40 | ORTHONT_ITS ---
Vital signs 08/24/24 14:41 Height 1.65 m Height Method Stated Weight 66.678 kg Weight Measurement Method Standing Scale BMI 24.5 BP 133/79 H Blood Pressure Source Automatic Cuff Blood Pressure Location Right Upper Arm Position Sitting Respiration 18 Pulse 95 Pulse Source Monitor Temp 98.0 F Temp Source Temporal Artery Scan Pulse Oximetry (%) 95 Oxygen Delivery Method Room Air Med/Allergies Allergies & Medications Allergies No Known Allergies Allergy (Verified 08/24/24 14:42) Medication Reconciliation cyclobenzaprine 5 mg tablet 5 mg PO HS 01/09/24 [History Confirmed 08/24/24] hydrochlorothiazide 25 mg tablet 25 mg PO QAM 01/09/24 [History Confirmed 08/24/24] losartan 50 mg tablet 50 mg PO DAILY 01/09/24 [History Confirmed 08/24/24] alendronate 70 mg tablet 70 mg PO QWEEK 06/04/24 [History Confirmed 08/24/24] benzonatate 100 mg capsule 100 mg PO BID PRN Cough 06/25/24 [History Confirmed 08/24/24] acetaminophen 500 mg tablet (Acetaminophen Extra Strength) 1,000 mg (2 x 500 mg) PO Q6H PRN pain #90 tabs 07/13/24 [Rx Confirmed 08/24/24] aspirin 81 mg tablet,delayed release 81 mg PO BID #60 tabs 07/13/24 [Rx Confirmed 08/24/24] doxycycline hyclate 100 mg tablet 100 mg PO BID #14 tabs 07/13/24 [Rx Confirmed 08/24/24] gabapentin 300 mg capsule 300 mg PO .qhs #30 caps 07/13/24 [Rx Confirmed 08/24/24] sennosides 8.6 mg-docusate sodium 50 mg tablet (Senna-S) 1 tab-cap PO QDAY #30 tabs 07/13/24 [Rx Confirmed 08/24/24] oxycodone 5 mg tablet 5 mg PO Q6H PRN pain #28 tabs 07/27/24 [Rx Confirmed 08/24/24] Exam Exam Patient is in no acute distress and is cooperative with the examination today. Patient has a normal mood and affect. Breathing is nonlabored. In no respiratory distress. Bilateral extremities were evaluated and demonstrates sensation intact to light touch. Palpable pedal pulses are present. No significant edema is present. Bilateral knee incisions are clean dry intact. Range of motion is 0 to 110 degrees. X-rays demonstrate cemented total knee replacement in good alignment position Assessment and Plan Problem List (1) Degenerative arthritis of knee, bilateral: Status: Acute Plan: Patient is doing well s/p R TKA. She is now status post left total knee replacement and is doing well. She is doing well status post bilateral total knee replacements. She should transition outpatient physical therapy Plan f/u weeks outpatient pt Advanced Care Planning Discussion Advance care planning discussed with:: patient Office Procedures GNS Level of Care Nursing/Assessment Patient Status: Established Patient Nursing Assessment/Reassesment: Medication Reconciliation, Update PMH in EMR and Vital Signs Coordination of Care: Complex Care and Chronic Disease 1-5, Education Complex Pt/Fam, Consent,records obtained, informed consent, Results/Orders obtained and Staff clarify orders Special Needs: Language special needs Established Patient Charge Established Patient Point Assignment: 95 Established Patient Point Charge: EP Level 3 (80-115) MA Intake Visit Data Collection New Patient or Established: Established Patient (seen at [facility] within 3 years) Reason for Visit:: POST OP TKA Seen by Clinical Staff ONLY (RN/MA): No Verbal consent obtained for Telemed visit?: No Student Financial Services Counselor Required: Yes PCP or OBGYN visit in last 3 months: Yes Hx Now: No Do You Feel Safe at Home: Yes Authorities Contacted: N/A Questionairres Past Medical History Past Medical History Have you ever been diagnosed with any of the following: Neurological Problems Seizures: No Cardiology Problems Hypercholesterolemia: Yes Congestive Heart Failure: No Hypertension: Yes Varicose Veins: Yes Respiratory Problems Chronic Obstructive Pulmonary Disease (COPD): No Smoking: No Genital/Urinary Problems Renal Disease: No Reproductive Problems Previous Pregnancies: Yes Musculoskeletal Problems Arthritis: Yes Osteoporosis: Yes Carpal Tunnel Syndrome: Yes (bilateral) Endocrine Problems Diabetes Mellitus Type 1: No Diabetes Mellitus Type 2: No Psychologic Problems Depression: Yes Other Problems Hospitalization: Yes (surgery) Shingles: No Blood Transfusions: No Blood Transfusion Reaction: No Anesthesia Reactions: No Measles: Yes Rubella ([place] Measles): Yes Clostridium Difficile: No Cancer: No Surgical History Total Knee Replacement: Yes Hysterectomy: Yes Subjective Visit Visit for: follow up visit and knee Immunization / Flu Flu Vaccine in the Last 12 Months: No Flu Vaccine Exclusion Criteria: No Exclusion Criteria History of Present Illness Chief complaint: Bilateral knee pain Steff is a 83-year-old female with bilateral total knee replacements. The most recent one was done 6 weeks ago on the left. She is doing well. She has minimal pain. Pain Pain level (0-10): 3 Pain duration: COMES AND GOES Pain location: inside (medial), outside (lateral), anterior and posterior Pain quality: sharp, dull and aching Pain timing: increases with activity Associated signs & symptoms: numbness Ambulatory data Ambulatory device: cane Treatments Improvement with previous injections: No Improvement with PT: No Improvement with NSAIDS: no Review of Systems Review of Systems: All systems negative unless otherwise noted in HPI.
[2024-08-24 14:41] VITALS: BP 133/79; PULSE 95; RESP 18; TEMP 36.7; O2SAT 95; BMI 24.5
== END 2024-08-24 14:44 | disposition home or self-care (01) ==
LOC: HODSRG 14:34
PROVIDERS: PCP Family Medicine; Referring Provider Family Medicine; Supervising Provider Orthopaedic Surgery Adult Reconstructive Orthopaedic Surgery; Visit Provider Orthopaedic Surgery Adult Reconstructive Orthopaedic Surgery
DX: M25.561 Pain in right knee (principal); M25.562 Pain in left knee; Z96.653 Presence of artificial knee joint, bilateral
CPT/HCPCS: 99213; G0463

== ENCOUNTER 2024-09-07 17:31 | Emergency (ER) | payer MEDICARE, MEDICAID, SELFPAY ==
[2024-09-07 17:56] VITALS: BP 143/76; PULSE 93; RESP 18; TEMP 36.9; O2SAT 98; BMI 24.7
--- NOTE | 2024-09-07 17:59 | PD.EDRME ---
Rapid Medical Screening Exam RME Arrival date/time: 09/07/24 17:31 84 yo f present to Ed for c/o of flank pain worsen the past 2 days I have greeted and performed a focused initial assessment of this patient. A comprehensive ED assessment and evaluation of the patient, analysis of all test results, and completion of the medical decision making process will be conducted by additional ED providers. Chief Complaint: Back Pain/Injury Time Seen by Provider: 09/07/24 17:53 Vital signs: Vital Signs Temperature 98.4 F 09/07/24 17:56 Pulse Rate 93 09/07/24 17:56 Respiratory Rate 18 09/07/24 17:56 Blood Pressure 143/76 H 09/07/24 17:56 Pulse Oximetry (%) 98 09/07/24 17:56 Oxygen Delivery Method Room Air 09/07/24 17:56
[2024-09-07 19:05] LABS: Basophils # (Auto) 0.1 Thou/mm3 (0.0-0.2); Basophils % (Auto) 1 % (0-2.5); Eosinophils # (Auto) 0.1 Thou/mm3 (0.0-0.5); Eosinophils % (Auto) 1 % (0-10); Hematocrit 36.4 % (36.0-46.0); Hemoglobin 12.2 g/dL (12.0-16.0); Immature Granulocytes % (Auto) 0 % (0-0); Immature Granulocytes Auto 0.01 Thou/mm3 (0.00-0.00); Lymphocytes # (Auto) 2.5 Thou/mm3 (1.0-4.8); Lymphocytes % (Auto) 25 % (10-50); Mean Corpuscular HGB Conc 33.5 g/dl (31.0-37.0); Mean Corpuscular Hemoglobin 25.7 pg (25.0-35.0); Mean Corpuscular Volume 77 fL (80-100); Monocytes # (Auto) 0.7 Thou/mm3 (0.0-0.8); Monocytes % (Auto) 7 % (0-12); Neutrophils # (Auto) 6.6 Thou/mm3 (1.8-7.7); Neutrophils % (Auto) 66 % (37-80); Nucleated Red Blood Cell % 0 /100 WBC (0); Platelet Count 356 Thou/mm3 (140-440); RDW Standard Deviation 38.3 fL (36.4-46.3); Red Blood Count 4.75 Miln/mm3 (4.00-5.20); White Blood Count 9.9 Thou/mm3 (3.6-11.0)
[2024-09-07] MEDS: LIDOCAINE 5% 1 PATCH TOP (19:08)
[2024-09-07] MEDS: ACETAMINOPHEN 500 MG TABLET 1000 MG PO ×2 (19:08→23:28)
[2024-09-07 19:29] LABS: Alanine Aminotransferase 13 U/L (10-49); Albumin, Serum 4.5 gm/dL (3.4-4.8); Albumin/Globulin Ratio 1.3 (1.2-2.2); Alkaline Phosphatase 83 U/L (46-116); Anion Gap 13 (7-16); Aspartate Amino Transferase 22 U/L (0-34); BUN/Creatinine Ratio 15 Ratio (12-20); Bilirubin,Total 0.4 mg/dL (0.3-1.2); Blood Urea Nitrogen 12 mg/dL (9-23); Calcium 9.6 mg/dL (8.3-10.6); Calcium (Corrected) 9.6 mg/dL (8.5-10.1); Carbon Dioxide 25.3 mMol/L (20.0-31.0); Chloride 100 mMol/L (98-107); Creatinine (Component) 0.8 mg/dL (0.6-1.3); Estimated Creatinine Clearance 48.8 mL/min (>60); Globulin 3.5 gm/dL (2.3-3.5); Glucose 92 mg/dL (74-106); Lipase 50 U/L (12-53); Osmolality,Calculated 275 (275-295); Sodium 138 mMol/L (136-145); eGFR > 60 See Note
[2024-09-07 19:33] LABS: Collection Type, Urine Voided
[2024-09-07 20:05] LABS: Bacteria,Urine Rare; Bilirubin,Urine Negative (Negative); Blood,Urine Negative (Negative); Clarity,Urine Clear (Clear/Hazy); Color,Urine Lt-Yellow (Lt Yel-Yel); Glucose, Urine Negative (Negative); Ketones,Urine Negative (Negative); Leukocyte Esterase,Urine Positive (Negative); Nitrite,Urine Negative (Negative); PH,Urine 6.5 (5.0-7.0); Protein,Urine Negative (Neg - Trace); RBC,Urine 2 /hpf (0-3); Specific Gravity,Urine 1.008 (1.001-1.035); Squamous Epithelial Cell,Urine 3 /hpf (0-5); Urobilinogen,Urine Negative mg/dL (0.0-1.0); WBC,Urine 8 /hpf (0-5)
--- NOTE | 2024-09-07 20:14 | XR_ITS ---
Examination: CT lumbar spine, without contrast. 2-D sagittal reconstructions. 2-D coronal reconstructions. 3-D reconstructions. Date and time of exam:September 08, 2019 0529 hrs. Indications: Onset low back pain today CTDI: vol (mGy):18.8 DLP: (mGycm):512 Technique: Multiple 1.25 mm axial sections of the lumbar spine without intravenous contrast have been obtained. 2-D sagittal and coronal reconstructions have been obtained. 3-D reconstructions have been obtained. Low dose protocols were performed. One or more of the following dose reduction techniques were used; automated exposure control, adjustment of the mA and/or KV according to patient size, use of iterative reconstruction technique. Findings: Severe lumbar levoscoliosis, 46 degrees Severe osteopenia Diffuse advanced lumbar degenerative disc disease Moderate lumbar spondylosis No lumbar fracture No spondylolisthesis Lumbar pedicles, laminae transverse and posterior spinous processes intact L5-S1 3 mm central lumbar disc bulge contiguous with the right and left S1 nerve roots, extending to the left foraminal region with moderate left L5 ganglionic compression L4-L5 severe overall spinal stenosis, axial image 85, 6 mm central lumbar disc bulge, facet arthropathy and thickening of ligamentum flavum circumferentially narrowing the thecal sac L3-L4 4 mm central lumbar disc bulge with severe right neural foraminal stenosis, severe right L3 ganglionic compression L2-L3 no disc protrusion L2 no disc protrusion Impression: Severe lumbar levoscoliosis Diffuse advanced lumbar degenerative disc disease L5-S1 3 mm central lumbar disc bulge with moderate left L5 ganglionic compression L4-L5 severe overall spinal stenosis as above L3-L4 4 mm central lumbar disc bulge with severe right L3 ganglionic compression Consider elective MRI lumbar spine without contrast follow-up
--- NOTE | 2024-09-07 20:14 | XR_ITS ---
Examination: CT abdomen and pelvis without contrast. Coronal 3-D reconstructions. Sagittal 2-D reconstructions. Date and time of exam:September 07, 20246 hrs. Indications: Right flank pain radiating to the back today CTDI: vol (mGy): 7.1 DLP: (mGycm): 368 Technique: Axial images of the abdomen have been obtained, 3 mm slice thickness Intravenous contrast material has not been administered. Low dose protocols were performed. One or more of the following dose reduction techniques were used; automated exposure control, adjustment of the mA and/or KV according to patient size, use of iterative reconstruction technique. Findings: Retrocardiac gastric hernia No focal liver or splenic lesion Absent gallbladder Supraumbilical fat-containing hernia defect, axial image 84, 4.5 cm in dimension 15 mm fat-containing umbilical hernia No extrahepatic biliary tract dilatation No pancreatic or adrenal mass Heavy calcification origin left renal artery, estimated 80% plus stenosis No renal or ureteral calculi, no hydronephrosis Aorta normal size No pericecal inflammatory change Mild thickening of urinary bladder wall Surgical clips anterior right pelvis Prominent lumbar levoscoliosis Severe osteopenia with diffuse advanced lumbar disc narrowing Impression: Suspicious for 80% plus stenosis origin left renal artery, consider renal arterial Doppler sonography follow-up No renal or ureteral calculi, no hydronephrosis Cystitis pattern Severe lumbar levoscoliosis Advanced diffuse lumbar degenerative disc disease
[2024-09-07] MEDS: KETOROLAC INJ 60 MG/2 ML VIAL 30 MG IM (20:48)
--- NOTE | 2024-09-07 21:35 | XR_ITS ---
Examination: Renal sonography Renal Doppler arterial sonographic evaluation Exam date and time: September 07, 2024 2143 hrs. Indications: CT abdomen study today suspicious for 80% plus stenosis origin left renal artery Technique And Findings: Findings: Right kidney 11.2 cm renal cortex 1.7 cm No elevation peak systolic velocities Minimally elevated resistive indices. Normal renal aortic ratio Left kidney 13.0 cm renal cortex 1.6 cm No elevation peak systolic velocities There is elevation resistive indices involving the left renal artery Normal renal aortic ratio Impression: No findings diagnostic for renal artery significant stenosis
--- NOTE | 2024-09-07 21:44 | PD.EDBACK ---
ED Back Injury Pain RME/HPI General Chief Complaint: Back Pain/Injury Stated Complaint: R) FLANK PAIN STARTED YESTERDAY, WORSE THIS AM. Time Seen by Provider: 09/07/24 17:53 Arrival date/time: 09/07/24 17:31 RME / HPI RME / HPI Narrative: 09/07/24 17:31 84 yo f present to Ed for c/o of flank pain worsen the past 2 days I have greeted and performed a focused initial assessment of this patient. A comprehensive ED assessment and evaluation of the patient, analysis of all test results, and completion of the medical decision making process will be conducted by additional ED providers. Dr. Jauregui?s Main ED Evaluation: 84yo female BIB her daughter presents to the ED for a chief complaint of right flank pain x yesterday. Patient's daughter states the patient started c/o right flank pain after she was climbing up to get on her bed yesterday. Since then, her pain has been progressively getting worse, so she came in for evaluation. No radiation or migration. Patient reports associated urinary urgency. Patient denies any abdominal pain, N/V, dysuria, frequency or any other associated symptoms. No known allergies. Related Data Home Medications ?Medication ?Instructions ?Recorded ?Confirmed hydrochlorothiazide 25 mg tablet 25 mg PO QAM 01/09/24 08/24/24 losartan 50 mg tablet 50 mg PO DAILY 01/09/24 08/24/24 alendronate 70 mg tablet 70 mg PO QWEEK 06/04/24 08/24/24 benzonatate 100 mg capsule 100 mg PO BID PRN Cough 06/25/24 08/24/24 Previous Rx's ?Medication ?Instructions ?Recorded acetaminophen 500 mg tablet 1,000 mg (2 x 500 mg) PO Q6H PRN 07/13/24 (Acetaminophen Extra Strength) pain #90 tabs aspirin 81 mg tablet,delayed 81 mg PO BID #60 tabs 07/13/24 release doxycycline hyclate 100 mg tablet 100 mg PO BID #14 tabs 07/13/24 sennosides 8.6 mg-docusate sodium 1 tab-cap PO QDAY #30 tabs 07/13/24 50 mg tablet (Senna-S) oxycodone 5 mg tablet 5 mg PO Q6H PRN pain #28 tabs 07/27/24 cyclobenzaprine 5 mg tablet 5 mg PO HS #30 tabs 08/31/24 gabapentin 300 mg capsule 300 mg PO .qhs #30 caps 08/31/24 acetaminophen 500 mg capsule 1,000 mg (2 x 500 mg) PO Q6H PRN 09/07/24 fever or pain #30 caps nitrofurantoin macrocrystal 100 mg 100 mg PO BID Urinary tract 09/07/24 capsule infection 7 days #14 caps Allergies Allergy/AdvReac Type Severity Reaction Status Date / Time No Known Allergies Allergy Verified 09/07/24 17:34 Review of Systems Review of Systems Systems Reviewed: All systems reviewed, normal except as documented Past Medical History Past Medical History NEUROLOGIC: Negative Neurological Disorders or Seizures CARDIAC: Positive Cardiac Disorders, Hypercholesterolemia, Hypertension and Varicose Veins; Negative Congestive Heart Failure RESPIRATORY: Negative Chronic Obstructive Pulmonary Disease (COPD) or Smoking GASTROINTESTINAL: Negative Gastrointestinal Disorders GENITOURINARY: Negative Genitourinary Disorders or Renal Disease REPRODUCTIVE: Positive Previous Pregnancies MUSCULOSKELETAL: Positive Musculoskeletal Disorders (head and neck pain, limited range of motion), Arthritis, Osteoporosis and Carpal Tunnel Syndrome (bilateral) ENDOCRINE: Negative Endocrine Disorders, Diabetes Mellitus Type 1 or Diabetes Mellitus Type 2 HEMATOLOGIC: Negative Blood Disorders PSYCHO/SOCIAL: Positive Depression OTHER HISTORY: Positive Hospitalization (surgery), Measles and Rubella (Martiniquais Measles); Negative Autoimmune Disease, Shingles, Blood Transfusions, Blood Transfusion Reaction, Anesthesia Reactions, Clostridium Difficile or Cancer Family History FAMILY HISTORY: Positive Family Cardiac Disorders and Family Cancer; Negative Family Psychiatric Problems, Family Respiratory Disorders, Family Gastrointestinal Problems, Family Surgery or Family Anesthesia Reaction Surgical History SURGICAL: Positive Hysterectomy Social History SMOKING STATUS: Never smoker SECOND HAND EXPOSURE: No ED Exam Narrative Physical exam: GENERAL APPEARANCE: alert and oriented x 4, well-developed, well-nourished, no acute distress VITALS: All vitals were reviewed and the pulse ox is 98% on room air, which is normal according to my interpretation. HEENT: Normocephalic, atraumatic; pupils equal, round, reactive to light; EOMI; mucous membranes pink, moist; oropharynx clear NECK: Supple LUNGS: CTABL; no wheezes, no rales, no rhonchi HEART: Regular rate, regular rhythm; normal S1, S2; no murmurs ABDOMEN: non distended; normal BS; soft, no tenderness, no guarding, no rebound; no masses, no organomegaly, no hernia BACK: [id number] right CVA tenderness EXTREMITIES: atraumatic; no edema NEUROLOGIC: awake; alert and oriented x4; cranial nerves II-XII grossly intact; no focal sensory or motor deficits PSYCHIATRIC: appropriate mood and affect SKIN: warm, dry, normal color; no rashes Course Quality Measures none Orders Category Date Time Status CT abdomen pelvis wo con Stat Exams 09/07/24 20:[address] lumbar spine wo con Stat Exams 09/07/24 20:14 Completed US renal artery study complete Stat Exams 09/07/24 21:35 Completed CBC Stat Lab 09/07/24 18:13 Completed CMP [Comprehensive Metabolic Panel] Stat Lab 09/07/24 18:13 Completed Lipase Stat Lab 09/07/24 18:13 Completed UA [Urinalysis] Stat Lab 09/07/24 19:27 Completed Urine Culture Stat Lab 09/07/24 19:27 Received Acetaminophen Tab [Tylenol ES Tab] Med 09/07/24 17:59 Discontinued 1,000 mg PO X1 ONE Acetaminophen Tab [Tylenol ES Tab] Med 09/07/24 23:01 Discontinued 1,000 mg PO X1 ONE Doxycycline [Vibramycin] Med 09/07/24 23:01 Discontinued 100 mg PO X1 ONE Ibuprofen Tab [Motrin Tab] Med 09/07/24 23:01 Discontinued 400 mg PO X1 ONE Ketorolac Inj [Toradol Inj] Med 09/07/24 20:27 Discontinued 30 mg IM X1 ONE Lidocaine 5% Patch Med 09/07/24 17:59 Discontinued 1 patch TOP X1 ONE Phenazopyridine HCl [Pyridium] Med 09/07/24 23:01 Discontinued 100 mg PO X1 ONE Vital Signs Vital signs: Vital Signs Temperature 98.4 F 09/07/24 17:56 Pulse Rate 93 09/07/24 17:56 Respiratory Rate 18 09/07/24 17:56 Blood Pressure 143/76 H 09/07/24 17:56 Pulse Oximetry (%) 98 09/07/24 17:56 Oxygen Delivery Method Room Air 09/07/24 17:56 Back Pain / Injury MDM Narrative MDM Narrative:: Scribe Attestation: 09/07/24 - Luisa, Venita Ramirez am scribing for and in the presence of Dr. Jauregui. Patient data External records reviewed:: [facility] previous records (Per chart review, patient has no previous ED visits or admissions to this facility.) Clinical information provided by:: patient Social determinants that could affect healthcare access:: none Patient has the following chronic illnesses:: HTN How is presenting disease/condition affected by chronic disease/condition?: uneffected by Evaluation data The following diagnostics were reviewed and interpreted by me:: lab results and radiology exam(s) Lab and/or radiology exams considered but not ordered:: none Interpretation Summary: CBC is normal, Potassium is low at 3.0, Lipase is normal, UA is positive for a UTI, according to my interpretation. ----- [facility] Report Signed Patient: JOLYNN TRAVIS. Record#: [id number] Birthdate: 1940 Age/Sex: 84 / F Location: [facility] Attending Dr: Ordering Physician: Davonte Dawson PA-C Date of Service: 09/07/24 Procedure(s): CT lumbar spine wo [facility] Accession Number(s): [id number] cc: Merrick Cintron MD; NO PRIMARY/FAMILY,PHYSICIAN; Davonte Dawson PA-C~ Examination: CT lumbar spine, without contrast. 2-D sagittal reconstructions. 2-D coronal reconstructions. 3-D reconstructions. Date and time of exam:September 08, 2019 0529 hrs. Indications: Onset low back pain today CTDI: vol (mGy):18.8 DLP: (mGycm):512 Technique: Multiple 1.25 mm axial sections of the lumbar spine without intravenous contrast have been obtained. 2-D sagittal and coronal reconstructions have been obtained. 3-D reconstructions have been obtained. Low dose protocols were performed. One or more of the following dose reduction techniques were used; automated exposure control, adjustment of the mA and/or KV according to patient size, use of iterative reconstruction technique. Findings: Severe lumbar levoscoliosis, 46 degrees Severe osteopenia Diffuse advanced lumbar degenerative disc disease Moderate lumbar spondylosis No lumbar fracture No spondylolisthesis Lumbar pedicles, laminae transverse and posterior spinous processes intact L5-S1 3 mm central lumbar disc bulge contiguous with the right and left S1 nerve roots, extending to the left foraminal region with moderate left L5 ganglionic compression L4-L5 severe overall spinal stenosis, axial image 85, 6 mm central lumbar disc bulge, facet arthropathy and thickening of ligamentum flavum circumferentially narrowing the thecal sac L3-L4 4 mm central lumbar disc bulge with severe right neural foraminal stenosis, severe right L3 ganglionic compression L2-L3 no disc protrusion L2 no disc protrusion Impression: Severe lumbar levoscoliosis Diffuse advanced lumbar degenerative disc disease L5-S1 3 mm central lumbar disc bulge with moderate left L5 ganglionic compression L4-L5 severe overall spinal stenosis as above L3-L4 4 mm central lumbar disc bulge with severe right L3 ganglionic compression Consider elective MRI lumbar spine without contrast follow-up Dictated By: Merrick Cintron MD Signed By: <Electronically signed by Merrick Cintron MD in OV> 09/07/24 2136 [facility] Signed Patient: JOLYNN TRAVIS. Record#: [id number] Birthdate: 1940 Age/Sex: 84 / F Location: [facility] Attending Dr: Ordering Physician: Davonte Dawson PA-C Date of Service: 09/07/24 Procedure(s): CT abdomen pelvis wo con Accession Number(s): [id number] cc: Merrick Cintron MD; NO PRIMARY/FAMILY,PHYSICIAN; Davonte Dawson PA-C~ Examination: CT abdomen and pelvis without contrast. Coronal 3-D reconstructions. Sagittal 2-D reconstructions. Date and time of exam:September 07, 2024 2036 hrs. Indications: Right flank pain radiating to the back today CTDI: vol (mGy): 7.1 DLP: (mGycm): 368 Technique: Axial images of the abdomen have been obtained, 3 mm slice thickness Intravenous contrast material has not been administered. Low dose protocols were performed. One or more of the following dose reduction techniques were used; automated exposure control, adjustment of the mA and/or KV according to patient size, use of iterative reconstruction technique. Findings: Retrocardiac gastric hernia No focal liver or splenic lesion Absent gallbladder Supraumbilical fat-containing hernia defect, axial image 84, 4.5 cm in dimension 15 mm fat-containing umbilical hernia No extrahepatic biliary tract dilatation No pancreatic or adrenal mass Heavy calcification origin left renal artery, estimated 80% plus stenosis No renal or ureteral calculi, no hydronephrosis Aorta normal size No pericecal inflammatory change Mild thickening of urinary bladder wall Surgical clips anterior right pelvis Prominent lumbar levoscoliosis Severe osteopenia with diffuse advanced lumbar disc narrowing Impression: Suspicious for 80% plus stenosis origin left renal artery, consider renal arterial Doppler sonography follow-up No renal or ureteral calculi, no hydronephrosis Cystitis pattern Severe lumbar levoscoliosis Advanced diffuse lumbar degenerative disc disease Dictated By: Merrick Cintron MD Signed By: <Electronically signed by Merrick Cintron MD in OV> 09/07/241 [facility] Signed Patient: JOLYNN TRAVIS. Record#: [id number] Birthdate: 1940 Age/Sex: 84 / F Location: [facility] Attending Dr: Ordering Physician: Davonte Dawson PA-C Date of Service: 09/07/24 Procedure(s): US renal artery study complete Accession Number(s): [id number] cc: Merrick Cintron MD; NO PRIMARY/FAMILY,PHYSICIAN; Davonte Dawson PA-C~ Examination: Renal sonography Renal Doppler arterial sonographic evaluation Exam date and time: September 07, 2024 2143 hrs. Indications: CT abdomen study today suspicious for 80% plus stenosis origin left renal artery Technique And Findings: Findings: Right kidney 11.2 cm renal cortex 1.7 cm No elevation peak systolic velocities Minimally elevated resistive indices. Normal renal aortic ratio Left kidney 13.0 cm renal cortex 1.6 cm No elevation peak systolic velocities There is elevation resistive indices involving the left renal artery Normal renal aortic ratio Impression: No findings diagnostic for renal artery significant stenosis Dictated By: Merrick Cintron MD Signed By: <Electronically signed by Merrick Cintron MD in OV> 09/07/24 0243 Medications / Prescriptions Medications or Prescriptions considered but not ordered:: none Medication administrations:: Medication Administration History Discontinued Medications Acetaminophen (Acetaminophen 500 Mg Tablet) 1,000 mg PO X1 ONE Stop: 09/07/24 18:00 Last Admin: 09/07/24 19:08 Dose: 1,000 mg Documented By: LAUREL Acetaminophen (Acetaminophen 500 Mg Tablet) 1,000 mg PO X1 ONE Stop: 09/07/24 23:02 Last Admin: 09/07/24 23:28 Dose: 1,000 mg Documented By: RAMAKRISHNA Doxycycline Hyclate (Doxycycline 100 Mg Tablet) 100 mg PO X1 ONE Stop: 09/07/24 23:02 Last Admin: 09/07/24 23:28 Dose: 100 mg Documented By: RAMAKRISHNA Ibuprofen (Ibuprofen Tab 400 Mg Tablet) 400 mg PO X1 ONE Stop: 09/07/24 23:02 Last Admin: 09/07/24 23:28 Dose: 400 mg Documented By: RAMAKRISHNA Ketorolac Tromethamine (Ketorolac Inj 60 Mg/2 Ml Vial) 30 mg IM X1 ONE Stop: 09/07/24 20:28 Last Admin: 09/07/24 20:48 Dose: 30 mg Documented By: LAUREL Lidocaine (Lidocaine 5% 1 Patch) 1 patch TOP X1 ONE Stop: 09/07/24 18:00 Last Admin: 09/07/24 19:08 Dose: 1 patch Documented By: LAUREL Phenazopyridine HCl (Phenazopyridine Hcl 100 Mg Tablet) 100 mg PO X1 ONE Stop: 09/07/24 23:02 Last Admin: 09/07/24 23:28 Dose: 100 mg Documented By: RAMAKRISHNA see above Consultations Consultation(s) initiated? (list below): No Diagnosis Differential diagnosis back pain/injury: pyelonephritis and other (musculoskeletal pain, rib pain, AAA rupture, UTI) Most likely diagnosis given after review of the tests above:: see clinical impression below Admission Indicated Admission indicated?: not indicated Admission Request Was there a request for admission?: No Disposition Plan Disposition Plan: Discharge Discharge Attestation Discharge Attestation: The patient and all family members were given an opportunity to ask questions and understood the discharge instructions. Discharge instructions specifically effects, indications for sooner follow up or return to the emergency department, and the expected course of current diagnosis. Patient condition: Stable Discharge Plan Plan Patient Disposition: HOME (Self Care) Disposition Comment: Stable for discharge home Patient condition on transfer: Stable Prescriptions/Referrals Prescriptions/Med Rec: New nitrofurantoin macrocrystal 100 mg capsule 100 mg PO BID 7 Days Qty: 14 0RF Rx Instructions: must administer with a meal/food acetaminophen 500 mg capsule 1,000 mg PO Q6H PRN (Reason: fever or pain) Qty: 30 0RF No Action alendronate 70 mg tablet 70 mg PO QWEEK Rx Instructions: Takes every Friday. oxycodone 5 mg tablet 5 mg PO Q6H MDD 20 PRN (Reason: pain) Qty: 28 0RF cyclobenzaprine 5 mg tablet 5 mg PO HS Qty: 30 0RF gabapentin 300 mg capsule 300 mg PO .qhs Qty: 30 0RF losartan 50 mg tablet 50 mg PO DAILY Patient Comments: take 1 tablet by mouth once daily hydrochlorothiazide 25 mg Tablet 25 mg PO QAM benzonatate 100 mg Capsule 100 mg PO BID PRN (Reason: Cough) sennosides-docusate sodium [Senna-S] 8.6-50 mg tablet 1 tab-cap PO QDAY Qty: 30 0RF aspirin 81 mg tablet,delayed release (DR/EC) 81 mg PO BID Qty: 60 0RF acetaminophen [Acetaminophen Extra Strength] 500 mg tablet 1,000 mg PO Q6H MDD 1000mg PRN (Reason: pain) Qty: 90 0RF doxycycline hyclate 100 mg tablet 100 mg PO BID Qty: 14 0RF Referrals: [facility] [Outside] - In 1 week Problem List Clinical Impression: Urinary tract infection, Back pain Patient/Caregiver Discharge Instructions Discharge Activity: activity as tolerated Education Materials: Urinary Tract Infections in Women Additional Instructions: Please return to the emergency department if you have any worsening or any further medical problems and we will help you. Otherwise you should follow-up with your primary care doctor within the next several days. You should go to your pharmacy and picker and packer your medicines in the morning. One of the medicines is called Macrobid. This is your antibiotic. You should take this medicine twice per day for the entire 7 days. You should do this even if you are feeling better before that. The other medicine is acetaminophen. This is also called Tylenol and ice for pain. You should take 2 tabs of that up to every 6 hours for pain. Print Language: Nepali Stand Alone Forms: [facility] Info., Patient Portal Info Letter
[2024-09-07 23:06] VITALS: BP 145/77; PULSE 68; RESP 18; TEMP 36.6; O2SAT 95
[2024-09-07] MEDS: DOXYCYCLINE 100 MG TABLET PO (23:28)
[2024-09-07] MEDS: PHENAZOPYRIDINE HCL 100 MG TABLET PO (23:28)
[2024-09-07] MEDS: IBUPROFEN TAB 400 MG TABLET PO (23:28)
[2024-09-07 23:38] VITALS: RESP 18
== END 2024-09-07 23:39 | disposition home or self-care (01) ==
PROVIDERS: Physician Assistant; Emergency Provider Emergency Medicine
DX: N39.0 Urinary tract infection, site not specified (principal)
CPT/HCPCS: 36415; 72131; 74176; 80053; 81001; 83690; 85025; 87077; 87086; 87186; 93975; 96372; 99284; J1885; J3490; A9270

== ENCOUNTER 2024-09-16 10:57 | Outpatient (RCR) | payer MEDICAID, MEDICARE, SELFPAY ==
--- NOTE | 2024-09-16 11:37 | PT.OIERPT ---
PT OP Initial Eval Patient Information Outpatient Physical Therapy Treatment Date: 09/16/24 Visit Reasons: Left TKA Medical Diagnosis: Left Knee OA Treatment Dx #1: Left Knee Mobility Deficits Treatment Dx #2: Left Knee Weakness Start of Care: 09/16/24 Date of Onset: 07/12/24 Smoking Status Smoking Status: Never smoker Initial Assessment Subjective: Pt is a 84 y/o female s/p left TKA 07/12/24 due to knee OA. Pt still has pain (6/10) with activities. Pt has limitation with standing, chores, self care, cooking, balance, and walking. Objective: Left Knee AROM: -9 deg to 119 deg Left Knee MMTs: grossly 4-/5 Left Hip MMTs grossly 3+/5 SLS: NT Assessment: Pt demonstrate left knee mobility and strength deficits s/p TKA leading to difficulty with ADLs. Pt will benefit from physical therapy to increase ROM, strength, and work on ambulation. Short Term and [facility] Goals 1) Increase left knee flexion AROM to 120 deg in 12 wks to be able to perform chores 2) Decrease knee pain to 2/10 in 12 wks to be able to walk more than 30 mins 3) Increase left knee MMTs grossly to 4/5 in 12 wks to be able to perform stairs and steps 4) Increase left hip MMTs grossly to 4-/5 in 12 wks to be able to perform recreational activities 5) Indep with HEP Treatment Plan 1) Manual Therapy 2) Therapeutic Activities 3) Therapeutic Exercises 4) Modalities (ice, heat) 5) Balance Training 6) Gait Training Frequency and Duration: 2 x wk for 12 wks Certification Dates: 09/16/24 to 12/17/24 Procedure Charges OP PT Eval Mod Complex 30 minutes: Yes
== END 2024-09-20 23:59 | disposition home or self-care (01) ==
LOC: CPTX 10:57
PROVIDERS: PCP Orthopaedic Surgery Adult Reconstructive Orthopaedic Surgery; Referring Provider Orthopaedic Surgery Adult Reconstructive Orthopaedic Surgery; Visit Provider Orthopaedic Surgery Adult Reconstructive Orthopaedic Surgery
DX: M25.562 Pain in left knee (principal); R26.2 Difficulty in walking, not elsewhere classified; R26.89 Other abnormalities of gait and mobility; Z96.652 Presence of left artificial knee joint
CPT/HCPCS: 97162

== ENCOUNTER → 2024-10-07 | Outpatient (CLI) | payer MEDICARE, SELFPAY ==
[2024-10-06 12:38] LABS: Basophils # (Auto) 0.1 Thou/mm3 (0.0-0.2); Basophils % (Auto) 1 % (0-2.5); Eosinophils # (Auto) 0.1 Thou/mm3 (0.0-0.5); Eosinophils % (Auto) 1 % (0-10); Hematocrit 38.3 % (36.0-46.0); Hemoglobin 12.4 g/dL (12.0-16.0); Immature Granulocytes % (Auto) 0 % (0-0); Immature Granulocytes Auto 0.01 Thou/mm3 (0.00-0.00); Lymphocytes # (Auto) 1.8 Thou/mm3 (1.0-4.8); Lymphocytes % (Auto) 20 % (10-50); Mean Corpuscular HGB Conc 32.4 g/dl (31.0-37.0); Mean Corpuscular Hemoglobin 25.7 pg (25.0-35.0); Mean Corpuscular Volume 80 fL (80-100); Monocytes # (Auto) 0.8 Thou/mm3 (0.0-0.8); Monocytes % (Auto) 9 % (0-12); Neutrophils # (Auto) 6.3 Thou/mm3 (1.8-7.7); Neutrophils % (Auto) 70 % (37-80); Nucleated Red Blood Cell % 0 /100 WBC (0); Platelet Count 334 Thou/mm3 (140-440); RDW Standard Deviation 39.8 fL (36.4-46.3); Red Blood Count 4.82 Miln/mm3 (4.00-5.20)
[2024-10-06 12:47] LABS: INR 1.2 (0.9-1.3); Partial Thromboplastin Time 26.8 Seconds (22.0-36.0); Prothrombin Time 12.6 Seconds (9.0-12.2)
--- NOTE | 2024-10-07 08:30 | XR_ITS ---
Examinations: Ultrasound-guided percutaneous breast biopsy, 10:00 nodule left breast Left breast sonography limited INDICATIONS: BI-RADS 4 suspicious nodule 3:00 position left breast on left breast sonogram June 03, 2024. Exam date and time: October 07, 2024 0910 hours. Informed consent provided. Technique: A timeout was completed verifying correct patient, procedure, site, positioning, and special equipment if applicable Informed consent provided. The patient was placed in a supine position for the breast biopsy. Sonographic images of the breast were performed for localization of the suspicious nodule The patient's breast was prepped and draped in sterile fashion. Maximum sterile barrier technique, hand hygiene, ultrasound sterile technique 1% lidocaine was used to anesthetize the skin and breast adjacent to the suspicious nodule. Utilizing ultrasonographic guidance, 8 core biopsies were obtained of the suspicious nodule utilizing an 18-gauge BioPince needle. The specimens appears satisfactory. US guided breast biopsy marker placement. Estimated blood loss 3 cc. The patient tolerated the procedure well and there were no complications. Impression: Successful ultrasound-guided percutaneous breast biopsy, left breast 4:00 nodule. Ultrasound guided breast biopsy marker placement.
--- NOTE | 2024-10-07 08:30 | XR_ITS ---
Examinations: Ultrasound-guided percutaneous breast biopsy, left breast 4:00 nodule Left breast sonography limited INDICATIONS: BI-RADS 4 suspicious nodule 4:00 position left breast on breast sonogram June 03, 2024. Exam date and time: October 07, 2024 0914 hours. Informed consent provided. Technique: A timeout was completed verifying correct patient, procedure, site, positioning, and special equipment if applicable Informed consent provided. The patient was placed in a supine position for the breast biopsy. Sonographic images of the breast were performed for localization of the suspicious nodule The patient's breast was prepped and draped in sterile fashion. Maximum sterile barrier technique, hand hygiene, ultrasound sterile technique 1% lidocaine was used to anesthetize the skin and breast adjacent to the suspicious nodule. Utilizing ultrasonographic guidance, 8 core biopsies were obtained of the suspicious nodule utilizing an 18-gauge BioPince needle. The specimens appears satisfactory. US guided breast biopsy marker placement. Estimated blood loss 3 cc. The patient tolerated the procedure well and there were no complications. Impression: Successful ultrasound-guided percutaneous breast biopsy, left breast 4:00 nodule. Ultrasound guided breast biopsy marker placement.
== END | disposition home or self-care (01) ==
PROVIDERS: Radiology Diagnostic Radiology; PCP Nurse Practitioner Family; Referring Provider Nurse Practitioner Family; Visit Provider Nurse Practitioner Family
DX: D24.2 Benign neoplasm of left breast (principal); C50.512 Malignant neoplasm of lower-outer quadrant of left female breast; Z17.0 Estrogen receptor positive status [ER+]; Z17.21 Progesterone receptor positive status; Z01.812 Encounter for preprocedural laboratory examination
CPT/HCPCS: 19083; 19084; 36415; 85025; 85610; 85730; A4648

== ENCOUNTER → 2024-10-18 | Outpatient (CLI) | payer MEDICARE, MEDICAID, SELFPAY ==
[2024-10-18 12:18] LABS: Misc Send Out* See Sep Rpt
[2024-10-21 06:37] LABS: Helicobacter pylori Ag, Stool* NOT DETECTED (NOT DETECTED)
== END | disposition home or self-care (01) ==
PROVIDERS: PCP Nurse Practitioner Family; Referring Provider Nurse Practitioner Family; Visit Provider Nurse Practitioner Family
DX: R15.9 Full incontinence of feces (principal)
CPT/HCPCS: 87338

== ENCOUNTER 2024-10-19 10:00 | Outpatient (RCR) | payer MEDICAID, MEDICARE, SELFPAY ==
--- NOTE | 2024-09-22 12:28 | PT.ODAYNRPT ---
PT Outpatient Daily Note OP Daily Note Outpatient Physical Therapy Treatment Date: 09/22/24 Visit Reasons: Left TKA Subjective: Pt's knee is better. Pt still has stiffness and soreness with activities Objective: Please see flow chart for list of ther ex performed Assessment: tolerate exercises with minimal pain; improved knee extension AROM post PT session Plan: Continue with PT Length of Time (minutes) of Treatment: 30 Minutes Procedure Charges Therapeutic Exercise 30 minutes: Yes
--- NOTE | 2024-09-24 10:59 | PT.ODAYNRPT ---
PT Outpatient Daily Note OP Daily Note Outpatient Physical Therapy Treatment Date: 09/24/24 Visit Reasons: Left TKA Subjective: Pt's knee feels better. Pt mentioned she's able to walk longer with less limitation. Her calf is really tight. Objective: Please see flow chart for list of ther ex performed Assessment: continues to improve with knee ROM and progressing with closed chain exercises Plan: Continue with PT Length of Time (minutes) of Treatment: 30 Minutes Procedure Charges Therapeutic Exercise 30 minutes: Yes
--- NOTE | 2024-09-28 12:49 | PT.ODAYNRPT ---
PT Outpatient Daily Note OP Daily Note Outpatient Physical Therapy Treatment Date: 09/28/24 Visit Reasons: Left TKA Subjective: Pt's knee is better. Pt is walking more now with less pain. Objective: Left Knee Flexion AROM: 115 deg Left Knee Flexion PROM: 120 deg Assessment: Pt is progressing with knee flexion AROM with less pain reported. Pt continues to tolerate increase closed chain exercises; cues to keep foot straight with side stepping. Plan: Continue with PT Length of Time (minutes) of Treatment: 30 Minutes Procedure Charges Therapeutic Exercise 30 minutes: Yes
--- NOTE | 2024-09-30 10:51 | PT.ODAYNRPT ---
PT Outpatient Daily Note OP Daily Note Outpatient Physical Therapy Treatment Date: 09/30/24 Visit Reasons: Left TKA Subjective: Pt's knee is better. Pt mentioned the 4# with heel prop was too much and causing pain in the back of the knee. Objective: Please see flow chart for list of ther ex performed Assessment: modified heel prop to 2# which patient tolerate better. Pt continues to progress with knee ROM and closed chain exercises Plan: Continue with PT Length of Time (minutes) of Treatment: 30 Minutes Procedure Charges Therapeutic Exercise 30 minutes: Yes
--- NOTE | 2024-10-04 11:37 | PT.ODAYNRPT ---
PT Outpatient Daily Note OP Daily Note Outpatient Physical Therapy Treatment Date: 10/04/24 Visit Reasons: Left TKA Subjective: Pt's knee feels good. Pt notice less stiffness with first steps in the morning lately. Objective: Please see flow chart for list of ther ex performed Assessment: Pt demonstrate improved knee extension AROM; LLPS was held today. Cues to keep foot straight with side step and monster walk Plan: Continue with PT Length of Time (minutes) of Treatment: 30 Minutes Procedure Charges Therapeutic Exercise 30 minutes: Yes
--- NOTE | 2024-10-12 10:46 | PT.ODAYNRPT ---
PT Outpatient Daily Note OP Daily Note Outpatient Physical Therapy Treatment Date: 10/12/24 Visit Reasons: Left TKA Subjective: Pt's knee still hurts on the outside. Pt feels that knee is taking a long time to heal. Objective: Please see flow chart for list of ther ex performed Assessment: inspected knee notice increase edema on the lateral aspect of the knee without warmth. Pt educated that inflammation and edema is part of the healing process since patient is only 3 months post op. Pt gave verbal understanding. Progress patient to step up exercises and cues to have body over knee to help with engaging quads Plan: Continue with PT Length of Time (minutes) of Treatment: 30 Minutes Procedure Charges Therapeutic Exercise 30 minutes: Yes
--- NOTE | 2024-10-19 11:14 | PT.ODAYNRPT ---
PT Outpatient Daily Note OP Daily Note Outpatient Physical Therapy Treatment Date: 10/19/24 Visit Reasons: Left TKA Subjective: Pt's knee is better and notice less stiffness lately. Objective: Please see flow chart for list of ther ex performed Assessment: tolerate exercises with minimal pain; progress with dynamic balance during hip exercises Plan: Continue with PT Length of Time (minutes) of Treatment: 30 Minutes Procedure Charges Therapeutic Exercise 30 minutes: Yes
== END 2024-10-20 23:59 | disposition home or self-care (01) ==
LOC: CPTX 10:00
PROVIDERS: PCP Orthopaedic Surgery Adult Reconstructive Orthopaedic Surgery; Referring Provider Orthopaedic Surgery Adult Reconstructive Orthopaedic Surgery; Visit Provider Orthopaedic Surgery Adult Reconstructive Orthopaedic Surgery
DX: M25.562 Pain in left knee (principal); R53.1 Weakness; R26.2 Difficulty in walking, not elsewhere classified; R26.89 Other abnormalities of gait and mobility; Z96.652 Presence of left artificial knee joint
CPT/HCPCS: 97110

== ENCOUNTER 2024-10-28 11:00 | Outpatient (RCR) | payer MEDICARE, MEDICAID, SELFPAY ==
--- NOTE | 2024-10-25 14:27 | PTNOTE_ITS ---
PT Outpatient Daily Note OP Daily Note Outpatient Physical Therapy Treatment Date: 10/25/24 Visit Reasons: Left TKA Subjective: Pt reports L knee is doing ok. Objective: Please see flow sheet for ther ex list. Assessment: Pt demonstrates antalgic gait, ambulates in clinic short distance without SPC and noticeable limp. Plan: Continue with poC. Length of Time (minutes) of Treatment: 30 Minutes ROLL GRINDER OPERATOR Service Modifier Method I: Divide the number of min of care provided by the ROLL GRINDER OPERATOR/JENNIFER by the total min of care provided then multiply by 100. If greater than 11 percent modifier is required. Method II: Divide the total time of care provided to patient by 10 (round to the nearest whole number) and add 1 min. to set the minimum time requirement. If treatment total was 60 min., then 10% of 6 min PT CQ modifier applied: CQ Modifier applied Procedure Charges Therapeutic Exercise 30 minutes: Yes
--- NOTE | 2024-10-28 12:55 | PT.ODS1RPT ---
PT OP Progress/Discharge Note Date of Service: 10/28/24 Progress Note/DC Note Progress Note/Discharge Note: DC Note Patient Information Visit Reasons: Left TKA Medical Diagnosis: Left Knee OA Treatment Dx #1: Left Knee Mobility Deficits Treatment Dx #2: Left Knee Weakness Service Discharge Date: 10/28/24 Status Subjective: Pt's knee is better and will like to be release from physical therapy. Pt has been able to walk, stand, perform chores, and recreational activities with less limitation. Objective: Left Knee AROM: -5 deg to 121 deg Left Knee MMTs: grossly 4/5 Left Hip MMTs: grossly 3+/5 SLS: 5 sec Assessment: Pt demonstrate functional left knee mobility and strength allowing her to resume ADLs with less limitation. Pt has met goals set in therapy and will no longer benefit from physical therapy. Pt was instructed on HEP last session and educated to continue exercises to maintain overall mobility. Pt performed all exercises safely, thank you for your referrals. Plan: D/C home with HEP and follow up with MD OSHEA Procedure Charges Therapeutic Exercise 30 minutes: Yes
== END 2024-11-20 23:59 | disposition home or self-care (01) ==
LOC: CPTX 11:00
PROVIDERS: PCP Orthopaedic Surgery Adult Reconstructive Orthopaedic Surgery; Referring Provider Orthopaedic Surgery Adult Reconstructive Orthopaedic Surgery; Visit Provider Orthopaedic Surgery Adult Reconstructive Orthopaedic Surgery
DX: M25.562 Pain in left knee (principal); R53.1 Weakness; R26.2 Difficulty in walking, not elsewhere classified; R26.89 Other abnormalities of gait and mobility; Z96.652 Presence of left artificial knee joint
CPT/HCPCS: 97110

== ENCOUNTER 2024-11-23 08:51 | Outpatient (AMB) | payer MEDICARE, SELFPAY ==
[2024-11-23 09:01] VITALS: BP 147/78; PULSE 78; RESP 18; TEMP 36.7; O2SAT 98; BMI 24.3
--- NOTE | 2024-11-23 09:01 | PD.ORTHCLVIS ---
Vital signs 11/23/24 09:01 Height 1.65 m Height Method Stated Weight 66.338 kg Weight Measurement Method Standing Scale BMI 24.3 BP 147/78 H Blood Pressure Source Automatic Cuff Blood Pressure Location Right Upper Arm Position Sitting Respiration 18 Pulse 78 Pulse Source Monitor Temp 98.0 F Temp Source Temporal Artery Scan Pulse Oximetry (%) 98 Oxygen Delivery Method Room Air Med/Allergies Allergies & Medications Allergies No Known Allergies Allergy (Verified 11/23/24 09:02) Medication Reconciliation hydrochlorothiazide 25 mg tablet 25 mg PO QAM 01/09/24 [History Confirmed 11/23/24] losartan 50 mg tablet 50 mg PO DAILY 01/09/24 [History Confirmed 11/23/24] alendronate 70 mg tablet 70 mg PO QWEEK 06/04/24 [History Confirmed 11/23/24] benzonatate 100 mg capsule 100 mg PO BID PRN Cough 06/25/24 [History Confirmed 11/23/24] acetaminophen 500 mg tablet (Acetaminophen Extra Strength) 1,000 mg (2 x 500 mg) PO Q6H PRN pain #90 tabs 07/13/24 [Rx Confirmed 11/23/24] aspirin 81 mg tablet,delayed release 81 mg PO BID #60 tabs 07/13/24 [Rx Confirmed 11/23/24] doxycycline hyclate 100 mg tablet 100 mg PO BID #14 tabs 07/13/24 [Rx Confirmed 11/23/24] sennosides 8.6 mg-docusate sodium 50 mg tablet (Senna-S) 1 tab-cap PO QDAY #30 tabs 07/13/24 [Rx Confirmed 11/23/24] oxycodone 5 mg tablet 5 mg PO Q6H PRN pain #28 tabs 07/27/24 [Rx Confirmed 11/23/24] cyclobenzaprine 5 mg tablet 5 mg PO HS #30 tabs 08/31/24 [Rx Confirmed 11/23/24] gabapentin 300 mg capsule 300 mg PO .qhs #30 caps 08/31/24 [Rx Confirmed 11/23/24] acetaminophen 500 mg capsule 1,000 mg (2 x 500 mg) PO Q6H PRN fever or pain #30 caps 09/07/24 [Rx Confirmed 11/23/24] Exam Exam Patient is in no acute distress and is cooperative with the examination today. Patient has a normal mood and affect. Breathing is nonlabored. In no respiratory distress. Bilateral extremities were evaluated and demonstrates sensation intact to light touch. Palpable pedal pulses are present. No significant edema is present. Bilateral knee incisions are clean dry intact. Range of motion is 0 to 110 degrees. X-rays demonstrate cemented total knee replacement in good alignment position Assessment and Plan Problem List (1) Degenerative arthritis of knee, bilateral: Status: Acute Plan: Patient is doing well s/p R TKA. She is now status post left total knee replacement and is doing well. She is doing well status post bilateral total knee replacements. She is doing well. I will send her gabapentin as she has a lot of numbness and tingling down both legs Plan We will see her back in 3 months for routine followup with xrays Advanced Care Planning Discussion Advance care planning discussed with:: patient and child Office Procedures GNS Level of Care Nursing/Assessment Patient Status: Established Patient Nursing Assessment/Reassesment: Medication Reconciliation, Update PMH in EMR and Vital Signs Coordination of Care: Complex Care and Chronic Disease 1-5, Education Complex Pt/Fam, Consent,records obtained, informed consent, Results/Orders obtained and Staff clarify orders Special Needs: Language special needs Established Patient Charge Established Patient Point Assignment: 95 Established Patient Point Charge: EP Level 3 (80-115) MA Intake Visit Data Collection New Patient or Established: Established Patient (seen at [facility] within 3 years) Reason for Visit:: LEFT TKA POST OP Seen by Clinical Staff ONLY (RN/MA): No Verbal consent obtained for Telemed visit?: No Director Of Strategic Communications Required: Yes PCP or OBGYN visit in last 3 months: Yes Hx Now: No Do You Feel Safe at Home: Yes Authorities Contacted: N/A Questionairres Past Medical History Past Medical History Have you ever been diagnosed with any of the following: Neurological Problems Seizures: No Cardiology Problems Hypercholesterolemia: Yes Congestive Heart Failure: No Hypertension: Yes Varicose Veins: Yes Respiratory Problems Chronic Obstructive Pulmonary Disease (COPD): No Smoking: No Genital/Urinary Problems Renal Disease: No Reproductive Problems Previous Pregnancies: Yes Musculoskeletal Problems Arthritis: Yes Osteoporosis: Yes Carpal Tunnel Syndrome: Yes Endocrine Problems Diabetes Mellitus Type 1: No Diabetes Mellitus Type 2: No Psychologic Problems Depression: Yes Other Problems Hospitalization: Yes Shingles: No Blood Transfusions: No Blood Transfusion Reaction: No Anesthesia Reactions: No Measles: Yes Rubella (Chinese Measles): Yes Clostridium Difficile: No Cancer: No Surgical History Total Knee Replacement: Yes Hysterectomy: Yes Subjective Visit Visit for: follow up visit and knee Immunization / Flu Flu Vaccine in the Last 12 Months: No Flu Vaccine Exclusion Criteria: No Exclusion Criteria History of Present Illness Chief complaint: F/U LEFT TKA POST OP Steff is a 83-year-old female with bilateral total knee replacements. The most recent one was done 16 weeks ago on the left. She is doing well. She has minimal pain. 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
== END 2024-11-23 09:18 | disposition home or self-care (01) ==
LOC: HODSRG 08:51
PROVIDERS: Supervising Provider Orthopaedic Surgery Adult Reconstructive Orthopaedic Surgery; Visit Provider Orthopaedic Surgery Adult Reconstructive Orthopaedic Surgery
DX: M17.0 Bilateral primary osteoarthritis of knee (principal); Z96.653 Presence of artificial knee joint, bilateral; I10 Essential (primary) hypertension; E78.00 Pure hypercholesterolemia, unspecified
CPT/HCPCS: 99213; G0463

== ENCOUNTER 2024-12-08 08:41 | Outpatient (RCR) | payer MEDICARE, SELFPAY ==
--- NOTE | 2024-12-08 13:09 | CTCCONSULT_ITS ---
[facility] [address] [place], [place] [address] Consultation Note Date: 12/08/2024 MR#: [id number] Name: JOLYNN TRAVIS : 1940 Dx: Malignant neoplasm of lower outer quadrant of left breast Attending physician. Hung Howell DITCH INSPECTOR [facility] Reason for consultation. Patient with recent diagnosis of left breast CA referred to the cancer treatment center History of Present Illness: Patient is an 84-year-old lady who felt a lump in her left breast and ultrasound 06/03/2024 revealed suspicious nodules at 3:00 and 4 o'clock position. 3:00 was larger at 18 x 8 x 18 mm and the 4:00 was smaller at 8 x 8 x 7 mm. Both sites were biopsied October 07 and the 3:00 lesion was benign and the 4:00 lesion revealed invasive ductal carcinoma, low- grade largest focus 4 mm. ER 95% GA 1% HER2/dunia negative Ki-67 5 to 10%. Patient now referred to the cancer treatment center. Past Medical History: History of bladder infection chest pain Meds. Alendronate gabapentin losartan hydrochlorothiazide acetaminophen melatonin Allergies none to meds Family history. Mother and aunt had unknown cancer as well as 1 paternal cousin Social History: Patient retired Peruvian-speaking social drinker non-smoker Review of Systems: [place] a lump several months ago in left breast Physical Exam: General: Well-appearing lady no acute distress HEENT: Atraumatic normocephalic extraocular is intact no oral lesions no cervical or supraclavicular adenopathy. CV: Palpable mass outer quadrant left breast. No axillary lymph nodes felt ABD: Soft no organomegaly or tenderness EXT: No cyanosis clubbing or edema Assessment:1. 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 Referral to general surgeon. 3. I will see her in a few weeks to see about any adjuvant therapy that may be necessary. 4. Thank you very much for allowing me to evaluate this patient . Cc: [facility] Electronically signed by: Bernabe Rosario MD, DABR 12/08/2024 1:07 PM
== END 2024-12-20 23:59 | disposition home or self-care (01) ==
LOC: SCTC 08:41
PROVIDERS: PCP Nurse Practitioner Family; Referring Provider Nurse Practitioner Family; Visit Provider Radiology Therapeutic Radiology
DX: C50.912 Malignant neoplasm of unspecified site of left female breast (principal); Z17.0 Estrogen receptor positive status [ER+]; Z17.21 Progesterone receptor positive status; Z17.32 Human epidermal growth factor receptor 2 negative status
CPT/HCPCS: 99213; G0463

== ENCOUNTER → 2025-02-03 | Outpatient (CLI) | payer MEDICARE, MEDICAID, SELFPAY ==
--- NOTE | 2025-02-03 09:52 | XR_ITS ---
Examination: Bilateral knees 2 views Right lateral knee left lateral knee 2 views Bilateral axial knees single view TECHNIQUE: Bilateral AP knees standing single view, bilateral PA knees standing single view flexion Standing right lateral knee left lateral knee 2 views Bilateral axial knees single view total 5 views Date and time: February 03, 2015 1041 hours INDICATIONS: Right knee replacement one year ago left knee replacement 7 months ago FINDINGS: Prominent osteopenia Bilateral knee arthroplasties. Satisfactory alignment bilaterally. No loosening of the prosthetic components. No fractures Moderate left knee effusion IMPRESSION: Bilateral total knee arthroplasties with satisfactory alignment
== END | disposition home or self-care (01) ==
LOC: CDIM 09:29
PROVIDERS: PCP Nurse Practitioner Family; Referring Provider Orthopaedic Surgery Adult Reconstructive Orthopaedic Surgery; Visit Provider Orthopaedic Surgery Adult Reconstructive Orthopaedic Surgery
DX: M25.562 Pain in left knee (principal); M25.561 Pain in right knee; Z96.653 Presence of artificial knee joint, bilateral
CPT/HCPCS: 73564

== ENCOUNTER 2025-02-08 15:36 | Observation (INO) | payer MEDICARE, MEDICAID, SELFPAY ==
[2025-02-07 07:16] VITALS: BMI 25.3
--- NOTE | 2025-02-07 07:30 | EKG_ITS ---
[facility] Test Date: 2025-02-07 Pat Name: JOLYNN WAY Department: Room: - Gender: Female Customs Manager: TIFFANIE : 1940 Requested By: Aureliano Casillas Order Number: [id number] Reading MD: Aurleiano Casillas Measurements Intervals [place] Rate: 67 P: 47 GA: 138 QRS: -14 QRSD: 88 T: 65 QT: 414 QTc: 437 Interpretive Statements SINUS RHYTHM WITH MARKED SINUS ARRHYTHMIA POSSIBLE LEFT ATRIAL ENLARGEMENT [-0.1mV P WAVE IN V1/V2] LOW QRS VOLTAGE IN PRECORDIAL LEADS [QRS DEFLECTION < 1.0 mV IN CHEST LEADS] MINIMAL ST DEPRESSION [0.025+ mV ST DEPRESSION] No previous ECG available for comparison /store/S0/[id number]
[2025-02-07 09:45] LABS: INR 1.2 (0.9-1.3); Partial Thromboplastin Time 26.4 Seconds (22.0-36.0); Prothrombin Time 12.5 Seconds (9.0-12.2)
[2025-02-07 09:47] LABS: Basophils # (Auto) 0.1 Thou/mm3 (0.0-0.2); Basophils % (Auto) 1 % (0-2.5); Eosinophils # (Auto) 0.1 Thou/mm3 (0.0-0.5); Eosinophils % (Auto) 2 % (0-10); Hematocrit 38.2 % (36.0-46.0); Hemoglobin 12.4 g/dL (12.0-16.0); Immature Granulocytes Auto 0.01 Thou/mm3 (0.00-0.00); Lymphocytes # (Auto) 2.0 Thou/mm3 (1.0-4.8); Lymphocytes % (Auto) 30 % (10-50); Mean Corpuscular HGB Conc 32.5 g/dl (31.0-37.0); Mean Corpuscular Hemoglobin 26.2 pg (25.0-35.0); Mean Corpuscular Volume 81 fL (80-100); Monocytes # (Auto) 0.5 Thou/mm3 (0.0-0.8); Monocytes % (Auto) 8 % (0-12); Neutrophils # (Auto) 3.8 Thou/mm3 (1.8-7.7); Neutrophils % (Auto) 59 % (37-80); Nucleated Red Blood Cell # 0.00 Thou/mm3 (0.00-0.00); Nucleated Red Blood Cell % 0 /100 WBC (0); Platelet Count 311 Thou/mm3 (140-440); RDW Standard Deviation 40.8 fL (36.4-46.3); Red Blood Count 4.73 Miln/mm3 (4.00-5.20); White Blood Count 6.4 Thou/mm3 (3.6-11.0)
[2025-02-07 10:01] LABS: Alanine Aminotransferase 17 U/L (10-49); Albumin, Serum 4.4 gm/dL (3.4-4.8); Albumin/Globulin Ratio 1.5 (1.2-2.2); Alkaline Phosphatase 97 U/L (46-116); Anion Gap 12 (7-16); Aspartate Amino Transferase 29 U/L (0-34); BUN/Creatinine Ratio 21 Ratio (12-20); Bilirubin,Total 0.4 mg/dL (0.3-1.2); Blood Urea Nitrogen 15 mg/dL (9-23); Calcium 10.1 mg/dL (8.3-10.6); Calcium (Corrected) 10.1 mg/dL (8.5-10.1); Carbon Dioxide 28.5 mMol/L (20.0-31.0); Chloride 103 mMol/L (98-107); Creatinine (Component) 0.7 mg/dL (0.6-1.3); Estimated Creatinine Clearance 58.3 mL/min (>60); Globulin 3.0 gm/dL (2.3-3.5); Glucose 92 mg/dL (74-106); Osmolality,Calculated 285 (275-295); Potassium 3.2 mMol/L (3.4-5.1); Sodium 143 mMol/L (136-145); Total Protein 7.4 gm/dL (5.7-8.2); eGFR > 60 See Note
[2025-02-08] VITALS (10 sets, daily range): BP systolic 126–151; BP diastolic 74–82; PULSE 61–83; RESP 14–20; TEMP 36–36.5; O2SAT 95–98; BMI 25.0; BMI 27.1
--- NOTE | 2025-02-08 09:20 | XR_ITS ---
Examination: Nuclear medicine lymph glands imaging [place] lymph node study Date and time: February 08, 2025 0920 hours INDICATIONS: Diagnosis malignant neoplasm left female breast, preop surgical resection and lymph node dissection TECHNIQUE AND FINDINGS: Informed consent provided. Timeout performed. Skin prepped over the left breast and sterile drape applied hand hygiene 1% lidocaine administered subareolar for local anesthesia 2.0 mCi technetium filtered sulfur colloid introduced subareolar No imaging Estimated blood loss 0 cc IMPRESSION: Successful sentinel lymph node study left breast as above
--- NOTE | 2025-02-08 14:10 | SUR.PHASEI ---
1410 Patient arrived to recovery resting comfortably in bed, on oxygen 5L via nasal cannula, breathing unlabored, vital signs stable, denies pain, dressing intact to chest area; park, adaptic, fluffs, breast binder, two MADISON drains in place to left breast; 15F round and 7F flat with a connecting Y-piece joining both drains into a single line connecting to the bulb reservoir with serosanguineous fluids present in bulb reservoir, report received from Dr. Casillas and Earl HARMON
--- NOTE | 2025-02-08 14:28 | ESOP_ITS ---
Date of Procedure 02/08/25 Pre Op Diagnosis Infiltrating ductal carcinoma of the left breast with palpable axillary node Post Op Diagnosis Same Procedure Modified radical mastectomy on the left side Findings Patient was found to have a large palpable mass in the left breast behind the nipple and a palpable axillary lymph node. During surgery patient was found to have a multiple axillary lymph nodes making it performing modified radical mastectomy. Procedure Description The patient was sent to the x-ray department and had sentinel node injection done by the radiologist Dr. Cintron. The patient was brought to the operating room and I plan to do total mastectomy and sentinel node biopsy. After the patient was given endotracheal intubation the left breast and the axilla and the left upper extremity were all washed with ChloraPrep solution draped in a sterile manner. Timeout was performed. Using a neoprobe I identified axillary uptake and then marked the area on the skin with a marker. Then I made an elliptical incision and raised the skin flaps by that dissecting the breast away from the skin using skin hooks onto assistance. The mass was located close to the inferior margin and a marker was placed by placing a 3-0 silk sutures in the inferior portion. Then the anterior breast was lifted off the chest wall the pectoralis major muscle. I have to take a portion of the pectoralis major muscle to give a good clearance on the posterior aspect which is a deeper aspect of the specimen. I placed 3-0 Prolene suture to gladys the deeper side. Then the anterior breast was removed. I removed 1 palpable axillary lymph node which showed uptake on the radioisotope making it a sentinel lymph node. This lymph node measured 3 cm in diameter. This lymph node appeared hard and highly suspicious for metastatic disease. Then I felt some additional lymph nodes extending all the way up to the level 2. I decided at this time to do a complete axillary dissection. I therefore went out and talked with the family and explained the need for axillary dissection. After their consent I continued the axillary dissection cleaning all the lymph nodes and fatty tissue from the level 1 on the left axilla. The axillary vein was identified on the nerve to serratus anterior and latissimus dorsi were preserved. Intercostal brachial nerve was divided and fatty tissues were all removed completely and I was able to feel at least about 4 or 5 lymph nodes in the contents. Out sticking for the bleeding points and using hot packs to look for any capillary bleeding I left #7 flat drain in the left axilla and stitched it with a 3-0 chromic to hold it in place. On the chest wall I left a #15 round Corey-Sanchez and stitched it to the chest wall to keep it in place. Then the subcutaneous tissue was approximated with a 3-0 chromic in an interrupted fashion and the skin was stapled. The Corey-Sanchez drain was anchored to the chest wall with 2-0 silk sutures. Dressing was applied with Adaptic and fluff and extra-large breast binder. Patient tolerated the procedure well and left operating room in stable condition. Anesthesia GETA Pathology / specimen Other (1. Left breast with tumor and markers, #2 axillary contents on the left side) IVF Infused 1,000 Estimated Blood Loss 200 Condition Stable Disposition PACU Surgeon Subhash Perez MD Surgical Staff Operation Date: 02/08/25 12:15 Case Staff Anesthesiologist: Aureliano Casillas RNsenior commercial loan officer: Gisela Billingsley
[2025-02-08] MEDS: SODIUM CHLORIDE 0.9% 1000 ML 1,000 ML 50 ML IV (14:49)
--- NOTE | 2025-02-08 15:33 | SUR.PHASEII ---
1527 Report given to Traice HARMON, patient meets discharge criteria from recovery, resting comfortably in bed, on oxygen 3L via nasal cannula, breathing unlabored, vital signs stable, dressing intact; no bleeding noted with MADISON drains in place, eating ice chips; denies nausea. 1533 Patient transported via bed to room 375 without incident, patient family awaiting for patient in her room, Tracie RN, promptly in patients room, patient resting comfortably with call light in reach when this communications writer left patient room
[2025-02-08] MEDS: MORPHINE SULF INJ 10 MG/ML VIAL 4 MG IVP ×2 (16:33→23:57)
[2025-02-08] MEDS: ONDANSETRON INJ 2 MG/ML INJ 2 ML 4 MG IVP (18:29)
[2025-02-09] VITALS: BP 107/62; PULSE 67; RESP 20; TEMP 35.9; O2SAT 97
[2025-02-09 00:48] VITALS: PULSE 69; RESP 18; O2SAT 98
[2025-02-09 04:00] VITALS: BP 113/64; PULSE 69; RESP 18; TEMP 35.9; O2SAT 97
[2025-02-09 06:02] LABS: Basophils # (Auto) 0.0 Thou/mm3 (0.0-0.2); Basophils % (Auto) 0 % (0-2.5); Eosinophils # (Auto) 0.0 Thou/mm3 (0.0-0.5); Eosinophils % (Auto) 0 % (0-10); Hematocrit 31.8 % (36.0-46.0); Hemoglobin 10.5 g/dL (12.0-16.0); Immature Granulocytes Auto 0.07 Thou/mm3 (0.00-0.00); Lymphocytes # (Auto) 1.1 Thou/mm3 (1.0-4.8); Lymphocytes % (Auto) 8 % (10-50); Mean Corpuscular HGB Conc 33.0 g/dl (31.0-37.0); Mean Corpuscular Hemoglobin 26.3 pg (25.0-35.0); Mean Corpuscular Volume 80 fL (80-100); Monocytes # (Auto) 0.9 Thou/mm3 (0.0-0.8); Monocytes % (Auto) 7 % (0-12); Neutrophils # (Auto) 11.8 Thou/mm3 (1.8-7.7); Neutrophils % (Auto) 85 % (37-80); Nucleated Red Blood Cell # 0.00 Thou/mm3 (0.00-0.00); Nucleated Red Blood Cell % 0 /100 WBC (0); Platelet Count 297 Thou/mm3 (140-440); RDW Standard Deviation 40.4 fL (36.4-46.3); Red Blood Count 3.99 Miln/mm3 (4.00-5.20); White Blood Count 13.8 Thou/mm3 (3.6-11.0)
[2025-02-09 08:00] VITALS: BP 105/52; PULSE 65; RESP 16; TEMP 36.1; O2SAT 98
--- NOTE | 2025-02-09 09:21 | PD.SURPROG ---
Documentation for date of: 02/09/25 Subjective Subjective Narrative: Patient is feeling better after mastectomy. She required 2 doses of morphine during the night but she slept well Exam Vital Signs Temp Pulse Resp BP Pulse Ox O2 Del Method O2 Flow Rate 97 F 65 16 105/52 L 98 Room Air 3 02/09/25 08:00 02/09/25 08:00 02/09/25 08:00 02/09/25 08:00 02/09/25 08:00 02/09/25 08:00 02/09/25 04:00 Her vital signs are normal Routine Chest/Breast/Axilla Exam Comments: Corey-Sanchez drainage is minimal Results Results: Laboratory Laboratory Narrative: Laboratory results show stable hemoglobin Assessment & Plan Assessment Additional comments: Impression: Stable postoperative course Plan Plan: We shall discharge her today and see her in my office on Friday to take the drain out PROCEDURES: Procedures Modified radical mastectomy on the left side
[2025-02-09] MEDS: HYDROcodone/APAP 5/325 TABLET 1 TAB PO (09:22)
[2025-02-09 12:00] VITALS: BP 117/62; PULSE 64; RESP 16; TEMP 36.3; O2SAT 95
== END 2025-02-09 12:15 | disposition home or self-care (01) ==
LOC: S3SX 15:43
PROVIDERS: Admitting Provider Surgery; PCP Nurse Practitioner Family; Referring Provider Surgery; Visit Provider Surgery
PROC: (CPT 19307; principal; 2025-02-08 12:00)
DX: C50.912 Malignant neoplasm of unspecified site of left female breast (principal); C77.3 Secondary and unspecified malignant neoplasm of axilla and upper limb lymph nodes; Z01.810 Encounter for preprocedural cardiovascular examination; Z17.0 Estrogen receptor positive status [ER+]; Z17.21 Progesterone receptor positive status; I10 Essential (primary) hypertension; Z79.899 Other long term (current) drug therapy; Z79.82 Long term (current) use of aspirin
CPT/HCPCS: 19307; 38792; 36415; 80053; 85025; 85610; 85730; 93005; 94664; 96374; 96375; 96376; A4217; A4649; A9541; G0378; J0131; J1100; J1171; J2270; J2371; J2405; J2704; J3010; J3490; J7030; A9270; J1805

== ENCOUNTER 2025-02-16 09:27 | Outpatient (RCR) | payer MEDICARE, MEDICAID, SELFPAY ==
--- NOTE | 2025-01-25 10:59 | CTCFLWUP_ITS ---
[facility] [address] [place], [place] [address] FOLLOW-UP NOTE Date: 01/25/2025 MR#: [id number] Name: JOLYNN TRAVIS : Dx: C50.512 Malignant neoplasm of lower-outer quadrant of left female breast Identification. 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 Due to insurance issues, surgery has been delayed till a few days from now. Patient made appointment to see him because of recent onset of bone pain. States that she been having pain in her ribs anterior and posterior in her back. She has not a had cough shortness of breath or fever. Lungs are clear on my exam today and there is minimal tenderness in the palpation of the various chest cavity. Told patient that I would document her condition but no x-rays will be ordered at this time. Told her to bring this up if symptoms persist to the general surgeon who will see her in a few days. Electronically signed by: Bernabe Rosario M.D. 01/25/2025 10:56 AM
== END 2025-02-20 23:59 | disposition home or self-care (01) ==
LOC: SCTC 09:27
PROVIDERS: PCP Physician Assistant; Referring Provider Physician Assistant; Visit Provider Radiology Therapeutic Radiology
DX: C50.512 Malignant neoplasm of lower-outer quadrant of left female breast (principal); Z17.0 Estrogen receptor positive status [ER+]; Z17.21 Progesterone receptor positive status; Z17.32 Human epidermal growth factor receptor 2 negative status; R07.81 Pleurodynia; Z90.12 Acquired absence of left breast and nipple
CPT/HCPCS: 99212; 99213; G0463

== ENCOUNTER → 2025-02-22 | Outpatient (CLI) | payer MEDICARE, MEDICAID, SELFPAY ==
[2025-02-22 14:29] LABS: Basophils # (Auto) 0.1 Thou/mm3 (0.0-0.2); Basophils % (Auto) 1 % (0-2.5); Eosinophils # (Auto) 0.2 Thou/mm3 (0.0-0.5); Eosinophils % (Auto) 2 % (0-10); Hematocrit 35.6 % (36.0-46.0); Hemoglobin 11.8 g/dL (12.0-16.0); Immature Granulocytes Auto 0.02 Thou/mm3 (0.00-0.00); Lymphocytes # (Auto) 2.2 Thou/mm3 (1.0-4.8); Lymphocytes % (Auto) 22 % (10-50); Mean Corpuscular HGB Conc 33.1 g/dl (31.0-37.0); Mean Corpuscular Hemoglobin 26.5 pg (25.0-35.0); Mean Corpuscular Volume 80 fL (80-100); Monocytes # (Auto) 0.7 Thou/mm3 (0.0-0.8); Monocytes % (Auto) 7 % (0-12); Neutrophils # (Auto) 6.7 Thou/mm3 (1.8-7.7); Neutrophils % (Auto) 68 % (37-80); Nucleated Red Blood Cell # 0.00 Thou/mm3 (0.00-0.00); Nucleated Red Blood Cell % 0 /100 WBC (0); Platelet Count 357 Thou/mm3 (140-440); RDW Standard Deviation 39.7 fL (36.4-46.3); Red Blood Count 4.45 Miln/mm3 (4.00-5.20); White Blood Count 9.9 Thou/mm3 (3.6-11.0)
[2025-02-22 14:50] LABS: Alanine Aminotransferase 19 U/L (10-49); Albumin, Serum 4.4 gm/dL (3.4-4.8); Albumin/Globulin Ratio 1.6 (1.2-2.2); Alkaline Phosphatase 97 U/L (46-116); Anion Gap 13 (7-16); Aspartate Amino Transferase 30 U/L (0-34); BUN/Creatinine Ratio 21 Ratio (12-20); Bilirubin,Total 0.5 mg/dL (0.3-1.2); Blood Urea Nitrogen 15 mg/dL (9-23); Calcium 10.9 mg/dL (8.3-10.6); Calcium (Corrected) 10.9 mg/dL (8.5-10.1); Carbon Dioxide 30.3 mMol/L (20.0-31.0); Chloride 100 mMol/L (98-107); Creatinine (Component) 0.7 mg/dL (0.6-1.3); Globulin 2.7 gm/dL (2.3-3.5); Glucose 86 mg/dL (74-106); Osmolality,Calculated 284 (275-295); Potassium 3.6 mMol/L (3.4-5.1); Sodium 143 mMol/L (136-145); Total Protein 7.1 gm/dL (5.7-8.2); eGFR > 60 See Note
[2025-02-22 15:08] LABS: CA 15-3 130.8 U/mL (<32.4)
== END | disposition home or self-care (01) ==
PROVIDERS: PCP Nurse Practitioner Family; Referring Provider Internal Medicine Hematology & Oncology; Visit Provider Internal Medicine Hematology & Oncology
DX: C50.512 Malignant neoplasm of lower-outer quadrant of left female breast (principal)
CPT/HCPCS: 36415; 80053; 85025; 86300

== ENCOUNTER → 2025-02-22 | Outpatient (CLI) | payer MEDICARE, MEDICAID, SELFPAY ==
--- NOTE | 2025-02-22 10:02 | CTCCONSULT_ITS ---
Patient: JOLYNN MCCOY : 1940 MR#: [id number] Page 2 of 4 CONSULTATION NOTE DATE OF CONSULTATION: 02/22/2025 NAME: JOLYNN MCCOY ACCOUNT: [id number] : 1940 AGE: 84 REFERRING PHYSICIAN: Yohan Ramirez MD PRIMARY PHYSICIAN: Physician No Primary/Family MD REASON FOR VISIT: Breast cancer Moderate pain in the left arm ONCOLOGY HISTORY: DIAGNOSIS: Malignant neoplasm of lower-outer quadrant of left female breast [ICD10] C50.512 DATE OF DIAGNOSIS: 09/2024 STAGE/TNM: IIIC T3 N3 M0 TREATMENT HISTORY: Care?Plan Start?Date Cycle Day Intent DOCEtaxel?75,?Cyclophosphamide?600 02/22/2025 1 21 Curative?(adjuvant) HISTORY OF PRESENT ILLNESS: 84-year-old female diagnosed with breast cancer after self palpating her breast with mass. Patient had breast surgery after a lot of delay and was eventually founf to have advanced breast cancer. She is here to establish care. 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 alendronate - 70 mg Weekly 2. Arimidex - 1 mg 1 tab Daily 3. gabapentin - 300 mg Daily 4. hydrochlorothiazide - 25 mg Daily 5. losartan - 50 mg Daily 6. melatonin - 5 mg Daily 7. ribociclib - 400 mg/day (200 mg x 2) 2 tab Daily Medications Last Reconciled by Carmencita Gomez RN on 02/22/2025 ALLERGIES: No Known Drug Allergies REVIEW OF SYSTEMS: A complete 14-point review of systems was performed and is negative except as noted in interval history. PHYSICAL EXAMINATION: VITAL SIGNS: Temperature?98.5, B/P?146/61, Height?64.5?inches, Oxygen?Saturation?97% Weight?141?lbs (Change?since?02/16/25:?-3?lbs) PAIN: 5 - Between moderate and severe pain ECOG Performance Status: 1 - Symptomatic; ambulatory; restricted in strenuous activity GENERAL APPEARANCE: Appears well, in no apparent distress, appropriately interactive. HEENT: Normocephalic, no temporal wasting, normal conjunctiva, no scleral icterus, normal hearing, lips without lesions, neck normal range of motion. CARDIOVASCULAR: Not assessed. PULMONARY: Normal respiratory effort, no respiratory distress or use of accessory muscles, speaking in full sentences, no tachypnea. EXTREMITIES: No pedal edema or cyanosis. SKIN: Normal skin appearance. NEUROLOGIC: Alert and oriented x4. PSHYCHIATRIC: Appropriate affect, mood normal, behavior normal, intact thought and speech. Breast site shows mastectomy clean with the park. Lymphedema present on the arm with visible swelling LABORATORY DATA: I have personally reviewed and interpreted each of the patient?s relevant lab tests, abnormal findings are below: Date 02/07/25 02/09/25 ??WHITE?BLOOD?COUNT?(Thou/mm3) 6.4 13.8?H ??RED?BLOOD?COUNT?(Miln/mm3) 4.73 3.99?L ??HEMOGLOBIN?(gm/dl) 12.4 10.5?L ??HEMATOCRIT?(%) 38.2 31.8?L ??PLATELET?COUNT?(Thou/mm3) 311 297 ??NEUTROPHILS?%,?AUTO?(%) 59 85?H ??LYMPH?%,?AUTO?(%) 30 8?L ??NEUTROPHILS,?AUTO?(Thou/mm3) 3.8 11.8?H ??GLUCOSE,RANDOM?(mg/dL) 92 ? ??BLOOD?UREA?NITROGEN?(mg/dL) 15 ? ??CREATININE?(mg/dL) 0.70 ? ??SODIUM?(mmol/L) 143 ? ??POTASSIUM?(mmol/L) 3.2?L ? ??CHLORIDE?(mmol/L) 103 ? ??CrCl?(CandG)?(ml/min) 65.22 ? ??AST/SGOT?(Unit/L) 29 ? ??ALT/SGPT?(Unit/L) 17 ? ??ALKALINE?PHOSPHATASE?(Unit/L) 97 ? ??BILIRUBIN,?TOTAL?(mg/dL) 0.4 ? ??PROTEIN?TOTAL?(gm/dl) 7.4 ? ??ALBUMIN,?SERUM?(gm/dl) 4.4 ? ??GLOBULIN?(gm/dl) 3.0 ? ??ALBUMIN/GLOBULIN?RATIO 1.5 ? ??CALCIUM,?SERUM?(mg/dL) 10.1 ? ??CALCIUM?SERUM?(CORRECTED)?(mg/dL) 10.1 ? ASSESSMENT/PLAN: At least stage IIIc breast cancer ER positive HER2 negative Patient have at least stage IIIc breast cancer but will need to evaluate for stage IV Will get PET CT scan and brain MRI to make sure patient do not have metastatic disease especially in the presence of 10 lymph nodes Reviewed pathology report and patient has positive margins in the posterior I will advised that surgery should be attempted only after the PET CT scan shows to be negative If Ms. Mccoy already have stage IV cancer then doing further surgical revision will not help her Patient will be started on anastrozole and ribociclib If patient's PET CT scan and brain MRI come back negative then we will consider getting new adjuvant TC for 4 cycles before revision of surgery Patient will need radiation Advised to take vitamin D daily 3 weeks RTC to review above ORDERS: Order # Description [id number] Comprehensive Metabolic Panel - 12 + CBC with Auto Diff + [id number] Brain + MRI + With W/O Contrast [id number] Initial PET/CT of Skull to Mid-Thigh [id number] CA 15-3 [id number] Infusion 5 Hours [id number] Injection Clinic 15 Min [id number] CBC + Comprehensive Metabolic Panel [id number] Lab Appointment [id number] Follow Up Appointment MD [id number] Infusion 5 Hours [id number] Injection Clinic 15 Min [id number] CBC + Comprehensive Metabolic Panel [id number] Lab Appointment [id number] Follow Up Appointment MD [id number] Infusion 5 Hours [id number] Injection Clinic 15 Min [id number] CBC + Comprehensive Metabolic Panel [id number] Lab Appointment [id number] Follow Up Appointment MD [id number] Infusion 5 Hours [id number] Injection Clinic 15 Min [id number] CBC + Comprehensive Metabolic Panel [id number] Lab Appointment [id number] Follow Up Appointment MD RETURN TO CLINIC: I reviewed the diagnosis, prognosis, and recommended treatment/procedure options with the patient (and/or their legal account manager sales representative), including the potential benefits, risks, side effects and alternative therapies. We also discussed the option of no treatment and the possibility of clinical trial participation, if applicable. All questions were addressed, and they demonstrated understanding. They provided informed consent to proceed with the proposed plan of care. BILLING AND COMPLIANCE: I reviewed external records from providers outside my specialty as summarized above. I spent a total of 50 minutes on this patient?s care on the day of their visit excluding time spent related to any billed procedures. This time includes time spent with the patient as well as time spent documenting in the medical record, reviewing patients records and tests, obtaining history, placing orders, communicating with other healthcare professionals, counseling the patient, family or caregiver, and/or care coordination for the diagnoses above. Electronically Signed by: Yohan Ramirez MD T: 9:59 AM CC: PCP: Bhavin Flower Referring: Bhavin Flower This document was completed utilizing speech recognition software. Grammatical errors, random word insertions, pronoun errors, and incomplete sentences are an occasional consequence of this system due to software limitations, ambient noise, and hardware issues. Any formal questions or concerns about the content, text or information contained within the body of this dictation should be directly addressed to the provider for clarification.
== END | disposition home or self-care (01) ==
PROVIDERS: Referring Provider Internal Medicine Hematology & Oncology; Visit Provider Internal Medicine Hematology & Oncology
DX: C50.512 Malignant neoplasm of lower-outer quadrant of left female breast (principal); Z17.0 Estrogen receptor positive status [ER+]; Z17.32 Human epidermal growth factor receptor 2 negative status
CPT/HCPCS: 36415; 80053; 85025; 86300; 99213; G0463

== ENCOUNTER → 2025-02-24 | Outpatient (CLI) | payer MEDICARE, MEDICAID, SELFPAY ==
--- NOTE | 2025-02-24 10:30 | ECHO_ITS ---
Transthoracic Echo Report Ht (in): 65 Wt (lb): 145 Exam Location: Echo Lab Status: Outpatient Can Dragger: Anayeli Roa Indications: Procedure Performed: BP: 129 / 82 HR: 74 MEASUREMENTS (Male / Female) Normal Values 2D ECHO LV Diastolic Diameter PLAX 4.1 cm 4.2 - 5.9 / 3.9 - 5.3 cm LV Systolic Diameter PLAX 2.5 cm IVS Diastolic Thickness 1.1 cm 0.6 - 1.0 / 0.6 - 0.9 cm LVPW Diastolic Thickness 1.2 cm 0.6 - 1.0 / 0.6 - 0.9 cm LV Relative Wall Thickness 0.6 LVOT Diameter 1.9 cm LA Volume Index 35.9 cm?/m? 16 - 28 cm?/m? Ascending Aorta Diameter 2.6 cm M-MODE AV Cusp Separation MM 1.6 cm DOPPLER AV Peak Velocity 141.0 cm/s AV Peak Gradient 8.0 mmHg AV Mean Gradient 4.0 mmHg AV Velocity Time Integral 26.2 cm LVOT Peak Velocity 125.0 cm/s LVOT Peak Gradient 6.3 mmHg LVOT Velocity Time Integral 26.8 cm LVOT Cardiac Index 3222.1 cm?/min?m? AV Area Cont Eq vti 2.9 cm? AV Area Cont Eq pk 2.5 cm? MV Area PHT 3.2 cm? Mitral E Point Velocity 79.1 cm/s Mitral A Point Velocity 125.0 cm/s Mitral E to A Ratio 0.6 LV E' Lateral Velocity 8.5 cm/s Mitral E to LV E' Lateral Ratio 9.3 LV E' Septal Velocity 5.2 cm/s Mitral E to LV E' Septal Ratio 15.2 TR Peak Velocity 229.0 cm/s TR Peak Gradient 21.0 mmHg PV Peak Velocity 111.0 cm/s PV Peak Gradient 4.9 mmHg FINDINGS Left Ventricle Normal left ventricular size, wall thickness, systolic function with no obvious regional wall motion abnormalities.There is Grade I diastolic dysfunction of the left ventricle (impaired relaxation pattern). The ejection fraction is visually estimated at 70 %. Right Ventricle The right ventricle is normal in size and systolic function. The estimated right ventricular systolic pressure, 26 mmHg. Left Atrium The left atrial cavity size is mildly increased. Right Atrium The right atrium is normal by two-dimensional imaging, color flow and Doppler imaging with no structural abnormalities, no thrombus formation present. Atrial Septum The interatrial septum appears normal with no evidence of a shunt. Aorta The aorta is normal by two-dimensional, color flow and Doppler interrogation. Mitral Valve The mitral valve is normal by two-dimensional, color flow and Doppler interrogation..Mitral annular calcification. Trace to mild mitral regurgitation. Aortic Valve Aortic valve sclerosis without stenosis Tricuspid Valve The tricuspid valve is normal by two-dimensional, color flow and Doppler interrogation.there is mild to moderate tricuspid valve regurgitation. Pulmonic Valve The pulmonic valve is not well visualized. Trivial pulmonic valve regurgitation. Vessels The pulmonary artery appears normal. The inferior vena cava pulmonary and hepatic veins appear normal. Pericardium The pericardium is normal by two-dimensional imaging. There is no significant pericardial effusion. CONCLUSIONS Indication: Malignant neoplasm of lower-outer quadrant of left female breast Technical difficult study due to patient in lots of pain. Just had macstectomy. Normal left ventricular size and function. Approximate ejection fraction is 70%. Grade I diastolic dysfunction. RV normal in size and systolic function. Mildly dilated LA MAC with trivial MR Aortice valve sclerosis without stenosis Mild TR normal PA pressure Ele Mancini (Electronically Signed) Final Date: 24 February 2025 17:30
--- NOTE | 2025-02-24 12:02 | EKG_ITS ---
[facility] Test Date: 2025-02-24 Pat Name: JOLYNN TRAVIS Department: Room: - Gender: Female Grants Officer: TIFFANIE : 1940 Requested By: Yohan Ramirez Order Number: [id number] Reading MD: Yohan Ramirez Measurements Intervals [place] Rate: 75 P: 42 FL: 146 QRS: 29 QRSD: 87 T: 67 QT: 375 QTc: 421 Interpretive Statements SINUS RHYTHM Compared to ECG 01/09/2024 11:46:49 T-wave abnormality no longer present /store/S0/[id number].pdf
== END | disposition home or self-care (01) ==
PROVIDERS: PCP Nurse Practitioner Family; Referring Provider Internal Medicine Hematology & Oncology; Visit Provider Internal Medicine Hematology & Oncology
DX: I50.30 Unspecified diastolic (congestive) heart failure (principal); I08.1 Rheumatic disorders of both mitral and tricuspid valves; C50.512 Malignant neoplasm of lower-outer quadrant of left female breast
CPT/HCPCS: 93005; 93306

== ENCOUNTER → 2025-03-01 | Outpatient (CLI) | payer MEDICARE, MEDICAID, SELFPAY ==
--- NOTE | 2025-03-01 08:00 | XR_ITS ---
EXAMINATION: PET/CT FUSION SKULL TO THIGH EXAM DATE AND TIME: March 01, 2025 0923 hours, comparison CT lumbar spine September 07, 2024 CT abdomen pelvis September 07, 2024 INDICATIONS: Diagnosis breast cancer, restaging CTDI:vol (mGy) 4.38 DLP: (mGycm) 345.89 PROCEDURE: 14.8 mCi FDG was administered intravenously To allow for distribution and uptake of radiotracer, the patient was allowed to rest quietly in a shielded room. Imaging was performed on an integrated 16-slice PET/CT scanner, with scanning from the skull base to the mid thigh. Serum blood glucose at the time of the injection was measured 115 mg/dL. CT scanning was performed without oral or intravenous contrast material. FINDINGS: Head and Neck: There is no pillo hypermetabolism in the neck. The visualized portions of the brain are normal in appearance on CT. Chest: Weakly hypermetabolic presumed post treatment change left mastectomy site. Abdomen and Pelvis: There is no pillo hypermetabolism in retroperitoneal or pelvic chains. 14 mm hypermetabolic focus anterior to the left psoas muscle which represents the left common iliac artery Musculoskeletal: Widespread hypermetabolic osseous metastatic disease, including left scapula with 4.6 cm soft tissue mass destroying the medial scapula left sixth posterior rib right seventh rib posteriorly C4, L1, T6, T7, T4, left sacrum first sacral segment, right superior pubic ramus IMPRESSION: Widespread osseous metastatic disease Recommend MRI thoracic cervical and lumbar spine post contrast follow-up to exclude tumor compression of the spinal cord
== END | disposition home or self-care (01) ==
PROVIDERS: PCP Internal Medicine Hematology & Oncology; Referring Provider Internal Medicine Hematology & Oncology; Visit Provider Internal Medicine Hematology & Oncology
DX: C79.9 Secondary malignant neoplasm of unspecified site (principal); C79.51 Secondary malignant neoplasm of bone; C50.512 Malignant neoplasm of lower-outer quadrant of left female breast
CPT/HCPCS: 78815; A9552

== ENCOUNTER → 2025-03-05 | Outpatient (CLI) | payer MEDICARE, MEDICAID, SELFPAY ==
--- NOTE | 2025-03-05 15:00 | XR_ITS ---
Examination: MRI of brain without intravenous contrast. MRI brain with intravenous contrast. Date and time of exam:March 05, 2025 1631 hrs. Indications: Diagnosis malignant neoplasm lower outer quadrant left female breast, diagnosis June 2024, onset numbness left side of the body dizziness 9 months, widespread osseous metastatic disease on PET CT scan 03/01/2025 Technique: Multiple axial and sagittal images of the brain to been obtained. Siemens high-resolution 1.52 Mariza short bore scanner utilized. Sagittal sections, T1 weighted images, TR 500, TE 14, are performed. Axial sections proton-density and T2-weighted images have been obtained. Inversion recovery axial images, TR 9260, TE 111, TR 2500. Diffusion weighted images, axial sections, TR 4800, TE 128, B value 1000. Axial sections, ADC map, TR 4800, TE 128. Axial and coronal images were also obtained post 13 cc gadolinium administered intravenously. Findings:: Enlargement of the sella turcica is not present. The optic chiasm and infundibular stalk are not remarkable. There is no localized enlargement of the medulla or kedar. Fourth ventricle and cerebellar tonsils appear normal in position. No subacute area of hemorrhage density is seen. Fourth ventricle is midline. Mass in the cerebellopontine angle region is not evident. 7th and 8th nerve complexes exhibit symmetry Globes are symmetrical Orbital musculature including medial lateral rectus muscles do not exhibit abnormality Increased white matter signal is moderate Effacement of the cortical sulcal markings is not identified. Mass effect upon the ventricular system is not identified. Diffusion-weighted images demonstrate no focus of restricted diffusion Contrast images demonstrate large focus of osseous metastatic disease involving the inner and middle table left posterior parietal cranial vault, measuring at least 12 mm in curvilinear medial collateral dimension, up to 1.7 cm AP dimension and at least 10 cm in cephalocaudad dimension Tumor from this large osseous metastatic deposit extends into the extra-axial space peripheral to the left posterior parietal cortex, contrast image 17 effacing cerebral sulci although no midline ventricular shift Smaller 12 x 8 mm focus of osseous metastatic disease in the high right parietal bone axial image 22 No abnormal cerebellar or cerebral enhancing metastases Impression: Large focus of osseous metastatic disease, 12 x 17 x 10 cm involving the left posterior parietal cranial vault which extends into the extra-axial space peripheral to the left posterior parietal cortex mildly effacing left parietal cerebral sulci although no midline ventricular shift Smaller 12 x 8 mm focus of osseous metastatic disease in the high right parietal bone No abnormal enhancing cerebellar or cerebral metastatic lesions
== END | disposition home or self-care (01) ==
PROVIDERS: PCP Nurse Practitioner Family; Referring Provider Internal Medicine Hematology & Oncology; Visit Provider Internal Medicine Hematology & Oncology
DX: C79.51 Secondary malignant neoplasm of bone (principal); C79.31 Secondary malignant neoplasm of brain; C50.512 Malignant neoplasm of lower-outer quadrant of left female breast
CPT/HCPCS: 70553; A9577

== ENCOUNTER 2025-03-08 15:20 | Outpatient (AMB) | payer MEDICARE, MEDICAID, SELFPAY ==
--- NOTE | 2025-03-08 15:42 | ORTHONT_ITS ---
Vital signs 03/08/25 15:43 Height 1.63 m Height Method Stated Weight 64.552 kg Weight Measurement Method Standing Scale BMI 24.3 BP 127/72 Blood Pressure Source Automatic Cuff Blood Pressure Location Left Upper Arm Position Sitting Respiration 18 Pulse 107 H Pulse Source Monitor Temp 98.3 F Temp Source Temporal Artery Scan Pulse Oximetry (%) 93 L Oxygen Delivery Method Room Air Med/Allergies Allergies & Medications Allergies No Known Allergies Allergy (Verified 03/08/25 15:43) Medication Reconciliation hydrochlorothiazide 25 mg tablet 25 mg PO QAM 01/09/24 [History Confirmed 03/08] losartan 50 mg tablet 50 mg PO DAILY 01/09/24 [History Confirmed 03/08/25] Exam Exam Patient is in no acute distress and is cooperative with the examination today. Patient has a normal mood and affect. Breathing is nonlabored. In no respiratory distress. Bilateral extremities were evaluated and demonstrates sensation intact to light touch. Palpable pedal pulses are present. No significant edema is present. Bilateral knee incisions are clean dry intact. Range of motion is 0 to 110 degrees. X-rays demonstrate cemented total knee replacement in good alignment and position bilaterally Assessment and Plan Problem List (1) Degenerative arthritis of knee, bilateral: Status: Acute Plan: Patient is doing well s/p R TKA. She is now status post left total knee replac ement and is doing well. Plan We will see her back in 1-2 years for routine followup with xrays Advanced Care Planning Discussion Advance care planning discussed with:: patient and child Office Procedures GNS Level of Care Nursing/Assessment Patient Status: Established Patient Nursing Assessment/Reassesment: Medication Reconciliation, Update PMH in EMR and Vital Signs Coordination of Care: Complex Care and Chronic Disease 1-5, Education Complex Pt/Fam, Consent,records obtained, informed consent, Results/Orders obtained and Staff clarify orders Established Patient Charge Established Patient Point Assignment: 95 Established Patient Point Charge: EP Level 3 (80-115) MA Intake Visit Data Collection New Patient or Established: Established Patient (seen at [facility] within 3 years) Reason for Visit:: LEFT TKA POST OP Seen by Clinical Staff ONLY (RN/MA): No Verbal consent obtained for Telemed visit?: No Editing Computer Publisher Required: Yes PCP or OBGYN visit in last 3 months: Yes Hx Now: No Do You Feel Safe at Home: Yes Authorities Contacted: N/A Questionairres Past Medical History Past Medical History Have you ever been diagnosed with any of the following: Neurological Problems Seizures: No Cardiology Problems Hypercholesterolemia: Yes Congestive Heart Failure: No Hypertension: Yes Varicose Veins: Yes Respiratory Problems Chronic Obstructive Pulmonary Disease (COPD): No Smoking: No Genital/Urinary Problems Renal Disease: No Reproductive Problems Breast Cancer: Yes (left) Previous Pregnancies: Yes Musculoskeletal Problems Arthritis: Yes Osteoporosis: Yes Carpal Tunnel Syndrome: Yes Endocrine Problems Diabetes Mellitus Type 1: No Diabetes Mellitus Type 2: No Psychologic Problems Bipolar Disorder: Yes Depression: Yes Anxiety: Yes Other Problems Hospitalization: Yes Shingles: No Blood Transfusions: No Blood Transfusion Reaction: No Anesthesia Reactions: No Measles: Yes Rubella ([place] Measles): Yes Clostridium Difficile: No Cancer: Yes Surgical History Total Knee Replacement: Yes Hysterectomy: Yes Subjective Visit Visit for: follow up visit and knee Immunization / Flu Flu Vaccine in the Last 12 Months: No Flu Vaccine Exclusion Criteria: No Exclusion Criteria History of Present Illness Chief complaint: F/U LEFT TKA POST OP Steff is a 83-year-old female with bilateral total knee replacements. She has minimal pain and is doing well Personal History Occupation: RETIRED BMI Counceling provided: No Pain Pain level (0-10): 0 Pain duration: NONE Pain location: inside (medial), outside (lateral), anterior and posterior Pain quality: sharp, dull and aching Pain timing: increases with activity Associated signs & symptoms: none Ambulatory data Ambulatory device: none Treatments Improvement with previous injections: No Improvement with PT: No Improvement with NSAIDS: no Review of Systems Review of Systems: All systems negative unless otherwise noted in HPI.
[2025-03-08 15:43] VITALS: BP 127/72; PULSE 107; RESP 18; TEMP 36.8; O2SAT 93; BMI 24.3
== END 2025-03-08 15:54 | disposition home or self-care (01) ==
LOC: HODSRG 15:20
PROVIDERS: PCP Nurse Practitioner Family; Referring Provider Nurse Practitioner Family; Supervising Provider Orthopaedic Surgery Adult Reconstructive Orthopaedic Surgery; Visit Provider Orthopaedic Surgery Adult Reconstructive Orthopaedic Surgery
DX: M17.0 Bilateral primary osteoarthritis of knee (principal); Z96.653 Presence of artificial knee joint, bilateral; I10 Essential (primary) hypertension; E78.00 Pure hypercholesterolemia, unspecified
CPT/HCPCS: 99213; G0463

== ENCOUNTER 2025-03-16 12:00 | Outpatient (RCR) | payer MEDICARE, MEDICAID, SELFPAY ==
--- NOTE | 2025-03-09 14:04 | CTCFLWUP_ITS ---
Patient: JOLYNN TRAVIS : 1940 Page 3 of 5 FOLLOW UP NOTE DATE OF SERVICE: 03/09/2025 NAME: JOLYNN TRAVIS ACCOUNT: [id number] : 1940 AGE: 84 INTERVAL HISTORY: Patient is taking anastrazole and doing well.. she is yet to start kisqali ONCOLOGY HISTORY:?[facility] Oncology Hx? 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 Patient had breast surgery after a lot of delay and was eventually found to have advanced breast cancer. She have metastatic disease in bones. She have no visceral mets. EKG and ECHO reviewed and are stable. 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 Arimidex - 1 mg 1 tab Daily 2. hydrochlorothiazide - 25 mg Daily 3. Kisqali - 400 mg/day (200 mg x 2) 2 tab Daily 4. losartan - 50 mg Daily 5. melatonin - 5 mg Daily 6. ribociclib - 400 mg/day (200 mg x 2) 2 tab Daily 7. traMADol - 50 mg 1 tab three times a day?Palabra Meds? Medications Last Reconciled by Amanda Sneed MA on 03/09/2025 ALLERGIES: No Known Drug Allergies REVIEW OF SYSTEMS: A complete 14-point review of systems was performed and is negative except as noted in interval history. PHYSICAL EXAMINATION:?CloneBlock PE? VITAL SIGNS: PAIN: 4 - Moderate pain ECOG Performance Status: 2 - Symptomatic; ambulatory; capable of self-care; >50% of waking hrs. not in bed GENERAL APPEARANCE: Appears well, in no apparent distress, appropriately interactive. HEENT: Normocephalic, no temporal wasting, normal conjunctiva, no scleral icterus, normal hearing, lips without lesions, neck normal range of motion. CARDIOVASCULAR: Not assessed. PULMONARY: Normal respiratory effort, no respiratory distress or use of accessory muscles, speaking in full sentences, no tachypnea. EXTREMITIES: No pedal edema or cyanosis. SKIN: Normal skin appearance. NEUROLOGIC: Alert and oriented x4. PSHYCHIATRIC: Appropriate affect, mood normal, behavior normal, intact thought and speech. Breast site shows mastectomy clean with the park. Lymphedema present on the arm with visible swelling LABORATORY DATA: I have personally reviewed and interpreted each of the patient?s relevant lab tests, abnormal findings are below: Date 02/07/25 02/09/25 02/22/25 ??WHITE?BLOOD?COUNT?(Thou/mm3) 6.4 13.8?H 9.9 ??RED?BLOOD?COUNT?(Miln/mm3) 4.73 3.99?L 4.45 ??HEMOGLOBIN?(gm/dl) 12.4 10.5?L 11.8?L ??HEMATOCRIT?(%) 38.2 31.8?L 35.6?L ??PLATELET?COUNT?(Thou/mm3) 311 297 357 ??NEUTROPHILS?%,?AUTO?(%) 59 85?H 68 ??LYMPH?%,?AUTO?(%) 30 8?L 22 ??NEUTROPHILS,?AUTO?(Thou/mm3) 3.8 11.8?H 6.7 ??GLUCOSE,RANDOM?(mg/dL) ? ? 86 ??BLOOD?UREA?NITROGEN?(mg/dL) ? ? 15 ??CREATININE?(mg/dL) ? ? 0.70 ??SODIUM?(mmol/L) ? ? 143 ??POTASSIUM?(mmol/L) ? ? 3.6 ??CHLORIDE?(mmol/L) ? ? 100 ??CrCl?(CandG)?(ml/min) ? ? 62.56 ??AST/SGOT?(Unit/L) ? ? 30 ??ALT/SGPT?(Unit/L) ? ? 19 ??ALKALINE?PHOSPHATASE?(Unit/L) ? ? 97 ??BILIRUBIN,?TOTAL?(mg/dL) ? ? 0.5 ??PROTEIN?TOTAL?(gm/dl) ? ? 7.1 ??ALBUMIN,?SERUM?(gm/dl) ? ? 4.4 ??GLOBULIN?(gm/dl) ? ? 2.7 ??ALBUMIN/GLOBULIN?RATIO ? ? 1.6 ??CALCIUM,?SERUM?(mg/dL) ? ? 10.9?H ??CALCIUM?SERUM?(CORRECTED)?(mg/dL) ? ? 10.9?H ASSESSMENT/PLAN:?Linda Ramirez Assessment/Plan? At least stage 4 breast cancer ER positive HER2 negative Patient have at least stage IV PET CT scan and brain MRI shows bone disease Advised to take vitamin D daily Xgeva for extensive bone mets Start kisqali at 400mg and anastrazole Follow with greyson for MRD ORDERS: Order # Description [id number] CBC with Auto Diff + Comprehensive Metabolic Panel - 12 [id number] CA [id number] [id number] RETURN TO CLINIC: I reviewed the diagnosis, prognosis, and recommended treatment/procedure options with the patient (and/or their legal community health program representative), including the potential benefits, risks, side effects and alternative therapies. We also discussed the option of no treatment and the possibility of clinical trial participation, if applicable. All questions were addressed, and they demonstrated understanding. They provided informed consent to proceed with the proposed plan of care. BILLING AND COMPLIANCE: I reviewed external records from providers outside my specialty as summarized above. I spent a total of 50 minutes on this patient?s care on the day of their visit excluding time spent related to any billed procedures. This time includes time spent with the patient as well as time spent documenting in the medical record, reviewing patients records and tests, obtaining history, placing orders, communicating with other healthcare professionals, counseling the patient, family or caregiver, and/or care coordination for the diagnoses above. Electronically Signed by: Yohan Ramirez MD T: 2:02 PM CC: PCP: Swati([facility])Hung Referring: Swati([facility]Hung This document was completed utilizing speech recognition software. Grammatical errors, random word insertions, pronoun errors, and incomplete sentences are an occasional consequence of this system due to software limitations, ambient noise, and hardware issues. Any formal questions or concerns about the content, text or information contained within the body of this dictation should be directly addressed to the provider for clarification.
== END 2025-03-22 23:59 | disposition home or self-care (01) ==
LOC: SCTC 12:00
PROVIDERS: PCP Nurse Practitioner Family; Referring Provider Nurse Practitioner Family; Visit Provider Internal Medicine Hematology & Oncology
DX: C50.512 Malignant neoplasm of lower-outer quadrant of left female breast (principal); C79.51 Secondary malignant neoplasm of bone; Z17.0 Estrogen receptor positive status [ER+]; Z17.32 Human epidermal growth factor receptor 2 negative status; Z17.21 Progesterone receptor positive status; Z79.811 Long term (current) use of aromatase inhibitors; Z90.12 Acquired absence of left breast and nipple
CPT/HCPCS: 99212; 99213; G0463

== ENCOUNTER → 2025-03-21 | Outpatient (CLI) | payer MEDICARE, MEDICAID, SELFPAY ==
--- NOTE | 2025-03-21 07:00 | XR_ITS ---
Examination: MRI cervical spine with intravenous contrast TECHNIQUE: Multiple sagittal and axial MR images cervical spine post intravenous ministration 13 cc gadolinium Date and time: March 21, 2029 0706 hours INDICATIONS: Breast cancer diagnosed in June 2024 with neck and back pain one month FINDINGS: Adequate alignment cervical vertebral bodies Abnormal enhancement C3, C4, C5, C6, C7, T1 and T2 Minimal epidural tumor enhancement posterior to C3-C4 and C5 but no significant thoracic cord compression at this time IMPRESSION: Widespread osseous metastatic disease No significant thoracic cord compression
--- NOTE | 2025-03-21 07:30 | XR_ITS ---
Examination: MRI thoracic spine with intravenous contrast TECHNIQUE: Multiple axial sagittal MR images thoracic spine post intravenous ministration 13 cc gadolinium INDICATIONS: Diagnosis malignant neoplasm lower outer quadrant left female breast, neck and back pain one month, diagnosis breast cancer June 2024 FINDINGS: Widespread abnormal uptake within the thoracic vertebral bodies. Abnormal uptake involves T1, T2, T4, T6, T9, T10, T11, T12 The T9 tumor involvement of the vertebral body is extensive involving the vertebral body, the pedicles, the lamina but there does not appear to be significant thoracic cord compression There is no localized enlargement thoracic cord IMPRESSION: Widespread osseous metastatic disease, most extensive tumor involvement T9 vertebral body including pedicles and lamina No definite thoracic cord compression noted at this time
== END | disposition home or self-care (01) ==
PROVIDERS: PCP Nurse Practitioner Family; Referring Provider Radiology Therapeutic Radiology; Visit Provider Radiology Therapeutic Radiology
DX: D43.4 Neoplasm of uncertain behavior of spinal cord (principal); C79.9 Secondary malignant neoplasm of unspecified site; C79.51 Secondary malignant neoplasm of bone; C50.512 Malignant neoplasm of lower-outer quadrant of left female breast
CPT/HCPCS: 72142; 72147; A9577

== ENCOUNTER → 2025-03-24 | Outpatient (CLI) | payer MEDICARE, MEDICAID, SELFPAY ==
--- NOTE | 2025-03-24 09:28 | EKG_ITS ---
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
[2025-03-24 09:54] LABS: Basophils # (Auto) 0.0 Thou/mm3 (0.0-0.2); Basophils % (Auto) 1 % (0-2.5); Eosinophils # (Auto) 0.2 Thou/mm3 (0.0-0.5); Eosinophils % (Auto) 5 % (0-10); Hematocrit 32.6 % (36.0-46.0); Hemoglobin 10.9 g/dL (12.0-16.0); Immature Granulocytes Auto 0.02 Thou/mm3 (0.00-0.00); Lymphocytes # (Auto) 0.9 Thou/mm3 (1.0-4.8); Lymphocytes % (Auto) 27 % (10-50); Mean Corpuscular HGB Conc 33.4 g/dl (31.0-37.0); Mean Corpuscular Hemoglobin 26.6 pg (25.0-35.0); Mean Corpuscular Volume 80 fL (80-100); Monocytes # (Auto) 0.2 Thou/mm3 (0.0-0.8); Monocytes % (Auto) 6 % (0-12); Neutrophils # (Auto) 2.2 Thou/mm3 (1.8-7.7); Neutrophils % (Auto) 62 % (37-80); Nucleated Red Blood Cell # 0.00 Thou/mm3 (0.00-0.00); Nucleated Red Blood Cell % 0 /100 WBC (0); Platelet Count 337 Thou/mm3 (140-440); RDW Standard Deviation 40.5 fL (36.4-46.3); Red Blood Count 4.10 Miln/mm3 (4.00-5.20); White Blood Count 3.5 Thou/mm3 (3.6-11.0)
[2025-03-24 10:20] LABS: Alanine Aminotransferase 16 U/L (10-49); Albumin, Serum 4.1 gm/dL (3.4-4.8); Albumin/Globulin Ratio 1.5 (1.2-2.2); Alkaline Phosphatase 115 U/L (46-116); Anion Gap 11 (7-16); Aspartate Amino Transferase 25 U/L (0-34); BUN/Creatinine Ratio 10 Ratio (12-20); Bilirubin,Total 0.4 mg/dL (0.3-1.2); Blood Urea Nitrogen 11 mg/dL (9-23); Calcium 9.2 mg/dL (8.3-10.6); Calcium (Corrected) 9.2 mg/dL (8.5-10.1); Carbon Dioxide 24.5 mMol/L (20.0-31.0); Chloride 103 mMol/L (98-107); Creatinine (Component) 1.1 mg/dL (0.6-1.3); Globulin 2.7 gm/dL (2.3-3.5); Glucose 87 mg/dL (74-106); Osmolality,Calculated 274 (275-295); Potassium 3.1 mMol/L (3.4-5.1); Sodium 138 mMol/L (136-145); Total Protein 6.8 gm/dL (5.7-8.2); eGFR 50 See Note
== END | disposition home or self-care (01) ==
PROVIDERS: PCP Nurse Practitioner Family; Referring Provider Internal Medicine Hematology & Oncology; Visit Provider Internal Medicine Hematology & Oncology
DX: C50.512 Malignant neoplasm of lower-outer quadrant of left female breast (principal)
CPT/HCPCS: 36415; 80053; 85025; 93005

== ENCOUNTER → 2025-04-22 | Outpatient (CLI) | payer MEDICARE, MEDICAID, SELFPAY ==
[2025-04-22 09:55] LABS: Basophils # (Auto) 0.1 Thou/mm3 (0.0-0.2); Basophils % (Auto) 3 % (0-2.5); Eosinophils # (Auto) 0.2 Thou/mm3 (0.0-0.5); Eosinophils % (Auto) 9 % (0-10); Hematocrit 33.6 % (36.0-46.0); Hemoglobin 10.8 g/dL (12.0-16.0); Immature Granulocytes Auto 0.01 Thou/mm3 (0.00-0.00); Lymphocytes # (Auto) 0.7 Thou/mm3 (1.0-4.8); Lymphocytes % (Auto) 27 % (10-50); Mean Corpuscular HGB Conc 32.1 g/dl (31.0-37.0); Mean Corpuscular Hemoglobin 26.3 pg (25.0-35.0); Mean Corpuscular Volume 82 fL (80-100); Monocytes # (Auto) 0.2 Thou/mm3 (0.0-0.8); Monocytes % (Auto) 7 % (0-12); Neutrophils # (Auto) 1.5 Thou/mm3 (1.8-7.7); Neutrophils % (Auto) 55 % (37-80); Nucleated Red Blood Cell # 0.00 Thou/mm3 (0.00-0.00); Nucleated Red Blood Cell % 0 /100 WBC (0); Platelet Count 384 Thou/mm3 (140-440); RDW Standard Deviation 47.6 fL (36.4-46.3); Red Blood Count 4.10 Miln/mm3 (4.00-5.20); White Blood Count 2.8 Thou/mm3 (3.6-11.0)
[2025-04-22 10:07] LABS: Alanine Aminotransferase 148 U/L (10-49); Albumin, Serum 4.8 gm/dL (3.4-4.8); Albumin/Globulin Ratio 1.8 (1.2-2.2); Alkaline Phosphatase 128 U/L (46-116); Anion Gap 10 (7-16); Aspartate Amino Transferase 108 U/L (0-34); BUN/Creatinine Ratio 14 Ratio (12-20); Bilirubin,Total 0.6 mg/dL (0.3-1.2); Blood Urea Nitrogen 13 mg/dL (9-23); Calcium 9.5 mg/dL (8.3-10.6); Calcium (Corrected) 9.5 mg/dL (8.5-10.1); Carbon Dioxide 28.6 mMol/L (20.0-31.0); Chloride 103 mMol/L (98-107); Creatinine (Component) 0.9 mg/dL (0.6-1.3); Globulin 2.7 gm/dL (2.3-3.5); Glucose 94 mg/dL (74-106); Osmolality,Calculated 283 (275-295); Potassium 3.5 mMol/L (3.4-5.1); Sodium 142 mMol/L (136-145); Total Protein 7.5 gm/dL (5.7-8.2); eGFR > 60 See Note
[2025-04-22 10:39] LABS: CA 15-3 64.5 U/mL (<32.4)
== END | disposition home or self-care (01) ==
LOC: SCTO 08:50
PROVIDERS: PCP Nurse Practitioner Family; Referring Provider Internal Medicine Hematology & Oncology; Visit Provider Internal Medicine Hematology & Oncology
DX: C50.512 Malignant neoplasm of lower-outer quadrant of left female breast (principal); C79.51 Secondary malignant neoplasm of bone
CPT/HCPCS: 36415; 80053; 85025; 86300

== ENCOUNTER 2025-05-02 16:52 | Emergency (ER) | payer MEDICARE, MEDICAID, SELFPAY ==
[2025-05-02 16:53] VITALS: BMI 22.6
[2025-05-02 17:23] VITALS: BP 145/88; PULSE 70; RESP 18; TEMP 36.9; O2SAT 100
[2025-05-02 18:09] VITALS: BP 156/78; PULSE 70; RESP 15; TEMP 36.6; O2SAT 100
[2025-05-02 19:02] LABS: Basophils # (Auto) 0.1 Thou/mm3 (0.0-0.2); Basophils % (Auto) 2 % (0-2.5); Eosinophils # (Auto) 0.1 Thou/mm3 (0.0-0.5); Eosinophils % (Auto) 3 % (0-10); Hematocrit 33.0 % (36.0-46.0); Hemoglobin 10.9 g/dL (12.0-16.0); Immature Granulocytes Auto 0.00 Thou/mm3 (0.00-0.00); Lymphocytes # (Auto) 1.1 Thou/mm3 (1.0-4.8); Lymphocytes % (Auto) 38 % (10-50); Mean Corpuscular HGB Conc 33.0 g/dl (31.0-37.0); Mean Corpuscular Hemoglobin 27.0 pg (25.0-35.0); Mean Corpuscular Volume 82 fL (80-100); Monocytes # (Auto) 0.4 Thou/mm3 (0.0-0.8); Monocytes % (Auto) 12 % (0-12); Neutrophils # (Auto) 1.4 Thou/mm3 (1.8-7.7); Neutrophils % (Auto) 46 % (37-80); Nucleated Red Blood Cell # 0.00 Thou/mm3 (0.00-0.00); Nucleated Red Blood Cell % 0 /100 WBC (0); Platelet Count 226 Thou/mm3 (140-440); RDW Standard Deviation 47.2 fL (36.4-46.3); Red Blood Count 4.04 Miln/mm3 (4.00-5.20); White Blood Count 3.0 Thou/mm3 (3.6-11.0)
--- NOTE | 2025-05-02 19:02 | PD.EDADULT ---
ED General RME/HPI General Chief complaint: General Adult/Misc Complain Stated complaint: Low K level Time Seen by Provider: 05/02/25 18:46 Arrival date/time: 05/02/25 16:52 CC: Low potassium patient is referred to us directly from [facility] after cancer treatment center blood draw showed a low potassium of 2.7. The patient has no specific complaints other than the chronic right neck pain headache and low back pain secondary to cancer. Patient is awake alert oriented nontoxic-appearing not in any acute distress. Related Data Home Medications ?Medication ?Instructions ?Recorded ?Confirmed hydrochlorothiazide 25 mg tablet 25 mg PO QAM 01/09/24 03/08/25 losartan 50 mg tablet 50 mg PO DAILY 01/09/24 03/08/25 Allergies Allergy/AdvReac Type Severity Reaction Status Date / Time No Known Allergies Allergy Verified 03/08/25 15:43 Review of Systems Review of Systems Narrative Review of Systems: GEN: No fever, no chills, no weight loss EYES: No discharge, no visual changes, no pain HEENT: No ear pain, no congestion, no sore throat PULM: No shortness of breath, no cough, no congestion CV: No chest pain, no dyspnea on exertion, no palpitations GI: No nausea, no vomiting, no diarrhea, no pain, no constipation : No frequency, no urgency, no dysuria MUSC/SKEL: No joint pain, no back pain SKIN: No rash PSYCH: No hallucinations, no depression HEME/LYMPH: No easy bleeding or bruising tendencies NEURO: No weakness, no headache Past Medical History Past Medical History NEUROLOGIC: Negative Neurological Disorders or Seizures CARDIAC: Positive Cardiac Disorders, Hypercholesterolemia, Hypertension and Varicose Veins; Negative Congestive Heart Failure RESPIRATORY: Negative Chronic Obstructive Pulmonary Disease (COPD) or Smoking GASTROINTESTINAL: Negative Gastrointestinal Disorders GENITOURINARY: Negative Genitourinary Disorders or Renal Disease REPRODUCTIVE: Positive Breast Cancer (left) and Previous Pregnancies MUSCULOSKELETAL: Positive Musculoskeletal Disorders, Arthritis, Osteoporosis and Carpal Tunnel Syndrome ENDOCRINE: Negative Endocrine Disorders, Diabetes Mellitus Type 1 or Diabetes Mellitus Type 2 HEMATOLOGIC: Negative Blood Disorders PSYCHO/SOCIAL: Positive Bipolar Disorder, Depression and Anxiety OTHER HISTORY: Positive Hospitalization, Measles, Rubella ([place] Measles), Cancer and Breast Cancer (left); Negative Autoimmune Disease, Shingles, Blood Transfusions, Blood Transfusion Reaction, Anesthesia Reactions or Clostridium Difficile Family History FAMILY HISTORY: Positive Family Cardiac Disorders and Family Cancer; Negative Family Psychiatric Problems, Family Respiratory Disorders, Family Gastrointestinal Problems, Family Surgery or Family Anesthesia Reaction Surgical History SURGICAL: Positive Hysterectomy Social History SMOKING STATUS: Never smoker SECOND HAND EXPOSURE: No ED Exam Narrative Physical exam: [General: Thin but not emaciated well-kept and not in any acute distress Head normocephalic HEENT: Within acceptable limits Neck is supple nontender Chest equal chest rise nontender to palpation Respiratory: Clear to auscultation no wheezes crackles or rubs CV: Rate rhythm is regular no murmurs rubs or clicks Abdomen is soft nontender no masses positive bowel sounds all 4 quadrants Back: No CVA tenderness no spinous process tenderness from cervical spine thoracic and lumbar spine Skin: Intact no petechiae rash induration ulceration or crepitus Extremities: Moving all extremity against resistance cap refill less than 2 seconds neurosensory intact Neuro: Awake alert oriented x3 Glascow coma 15 no focal deficits] Course Quality Measures none Orders Category Date Time Status Saline [Insert IV] NOW Care 05/02/25 19:04 Active CBC Stat Lab 05/02/25 18:30 Completed CMP [Comprehensive Metabolic Panel] Stat Lab 05/02/25 18:30 Completed POTASSIUM CHL 10 mEq IVPB [Kcl Ivpb] Med 05/02/25 19:04 Active 10 meq in 100 ml IV Q1H Sodium Chloride 0.9% 1000 ml [Ns] 1,000 ml Med 05/02/25 19:30 Active IV 100 mls/hr Vital Signs Vital signs: Vital Signs Temperature 98.5 F 05/02/25 17:23 Pulse Rate 70 05/02/25 17:23 Respiratory Rate 18 05/02/25 17:23 Blood Pressure 145/88 H 05/02/25 17:23 Pulse Oximetry (%) 100 05/02/25 17:23 Oxygen Delivery Method Room Air 05/02/25 17:23 Discharge Plan Plan Patient Disposition: HOME (Self Care) Patient condition on transfer: Stable Prescriptions/Referrals Prescriptions/Med Rec: No Action losartan 50 mg tablet 50 mg PO DAILY Patient Comments: take 1 tablet by mouth once daily hydrochlorothiazide 25 mg Tablet 25 mg PO QAM [facility] NP [Primary Care Provider] - In 1 week Problem List Clinical Impression: Hypokalemia Patient/Caregiver Discharge Instructions Education Materials: ED Hypokalemia Additional Instructions: Follow-up with the cancer treatment center. Print Language: Guyanese Stand Alone Forms: Sherron Award Info., Patient Portal Info Letter PA/BRAZER CRAWLER TORCH Supervising Physician TRISH/JOSHUA Supervising Physician: George Finn ENP MDM Medication Administration(s) Medication Administration History Potassium Chloride (Kcl Ivpb) 10 meq in 100 mls @ 100 mls/hr IV Q1H KIRAN Stop: 05/02/25 23:03 Last Admin: 05/02/25 21:56 Dose: 100 mls/hr Documented By: Infusion: 05/02/25 21:50 Dose: Infused Documented By: Admin: 05/02/25 20:38 Dose: 100 mls/hr Documented By: Infusion: 05/02/25 20:38 Dose: Infused Documented By: Admin: 05/02/25 19:21 Dose: 100 mls/hr Documented By: ROSEANNE Sodium Chloride (Ns) 1,000 mls @ 100 mls/hr IV .Q10H ONE Stop: 05/03/25 05:29 Last Admin: 05/02/25 19:33 Dose: 100 mls/hr Documented By: ROSEANNE
[2025-05-02] MEDS: POTASSIUM CHL 10 mEq IVPB 10 MEQ/100 ML BAG 100 MEQ IV ×4 (19:21→22:59)
[2025-05-02 19:22] LABS: Alanine Aminotransferase 151 U/L (10-49); Albumin, Serum 4.8 gm/dL (3.4-4.8); Albumin/Globulin Ratio 1.6 (1.2-2.2); Alkaline Phosphatase 104 U/L (46-116); Anion Gap 9 (7-16); Aspartate Amino Transferase 112 U/L (0-34); BUN/Creatinine Ratio 11 Ratio (12-20); Bilirubin,Total 0.5 mg/dL (0.3-1.2); Blood Urea Nitrogen 8 mg/dL (9-23); Calcium 9.0 mg/dL (8.3-10.6); Calcium (Corrected) 9.0 mg/dL (8.5-10.1); Carbon Dioxide 28.9 mMol/L (20.0-31.0); Chloride 103 mMol/L (98-107); Creatinine (Component) 0.7 mg/dL (0.6-1.3); Estimated Creatinine Clearance 53.5 mL/min (>60); Globulin 3.0 gm/dL (2.3-3.5); Glucose 80 mg/dL (74-106); Osmolality,Calculated 278 (275-295); Potassium 3.1 mMol/L (3.4-5.1); Sodium 141 mMol/L (136-145); Total Protein 7.8 gm/dL (5.7-8.2); eGFR > 60 See Note
[2025-05-02 19:27] VITALS: BP 137/77; PULSE 72; RESP 16; TEMP 36.6; O2SAT 100
[2025-05-02] MEDS: SODIUM CHLORIDE 0.9% 1000 ML 1,000 ML 100 ML IV (19:33)
[2025-05-02 22:11] VITALS: BP 157/82; PULSE 68; RESP 17; O2SAT 98
[2025-05-03 00:14] VITALS: BP 157/82; PULSE 68; RESP 17; TEMP 36.9; O2SAT 96
== END 2025-05-03 00:15 | disposition home or self-care (01) ==
PROVIDERS: Registered Nurse General Practice; Emergency Provider Emergency Medicine; PCP Nurse Practitioner Family
DX: E87.6 Hypokalemia (principal); G89.3 Neoplasm related pain (acute) (chronic); Z90.710 Acquired absence of both cervix and uterus
CPT/HCPCS: 36415; 80053; 85025; 96365; 96366; 99283; J3480; J7030

== ENCOUNTER 2025-05-11 13:18 | Outpatient (RCR) | payer MEDICARE, MEDICAID, SELFPAY | END 2025-05-22 23:59 | disposition home or self-care (01) | LOC: SCTC 13:18 | PROVIDERS: PCP Nurse Practitioner Family; Referring Provider Nurse Practitioner Family; Visit Provider Radiology Therapeutic Radiology | DX: Z51.0 Encounter for antineoplastic radiation therapy (principal); C50.512 Malignant neoplasm of lower-outer quadrant of left female breast; C79.51 Secondary malignant neoplasm of bone; Z17.0 Estrogen receptor positive status [ER+]; Z17.21 Progesterone receptor positive status; Z17.32 Human epidermal growth factor receptor 2 negative status; Z79.811 Long term (current) use of aromatase inhibitors | CPT/HCPCS: 77373; 96372; 99212; J0897; G0463 ==

== ENCOUNTER → 2025-05-24 | Outpatient (CLI) | payer MEDICARE, MEDICAID, SELFPAY ==
[2025-05-24 15:47] LABS: Basophils # (Auto) 0.1 Thou/mm3 (0.0-0.2); Basophils % (Auto) 2 % (0-2.5); Eosinophils # (Auto) 0.1 Thou/mm3 (0.0-0.5); Eosinophils % (Auto) 3 % (0-10); Hematocrit 35.0 % (36.0-46.0); Hemoglobin 11.3 g/dL (12.0-16.0); Immature Granulocytes Auto 0.02 Thou/mm3 (0.00-0.00); Lymphocytes # (Auto) 1.1 Thou/mm3 (1.0-4.8); Lymphocytes % (Auto) 26 % (10-50); Mean Corpuscular HGB Conc 32.3 g/dl (31.0-37.0); Mean Corpuscular Hemoglobin 27.4 pg (25.0-35.0); Mean Corpuscular Volume 85 fL (80-100); Monocytes # (Auto) 0.2 Thou/mm3 (0.0-0.8); Monocytes % (Auto) 6 % (0-12); Neutrophils # (Auto) 2.6 Thou/mm3 (1.8-7.7); Neutrophils % (Auto) 63 % (37-80); Nucleated Red Blood Cell # 0.00 Thou/mm3 (0.00-0.00); Nucleated Red Blood Cell % 0 /100 WBC (0); Platelet Count 316 Thou/mm3 (140-440); RDW Standard Deviation 51.3 fL (36.4-46.3); Red Blood Count 4.13 Miln/mm3 (4.00-5.20); White Blood Count 4.2 Thou/mm3 (3.6-11.0)
[2025-05-24 16:06] LABS: Alanine Aminotransferase 134 U/L (10-49); Albumin, Serum 4.7 gm/dL (3.4-4.8); Albumin/Globulin Ratio 1.5 (1.2-2.2); Alkaline Phosphatase 93 U/L (46-116); Anion Gap 11 (7-16); Aspartate Amino Transferase 101 U/L (0-34); BUN/Creatinine Ratio 16 Ratio (12-20); Bilirubin,Total 0.6 mg/dL (0.3-1.2); Blood Urea Nitrogen 14 mg/dL (9-23); Calcium 9.5 mg/dL (8.3-10.6); Calcium (Corrected) 9.5 mg/dL (8.5-10.1); Carbon Dioxide 26.5 mMol/L (20.0-31.0); Chloride 104 mMol/L (98-107); Creatinine (Component) 0.9 mg/dL (0.6-1.3); Globulin 3.2 gm/dL (2.3-3.5); Glucose 93 mg/dL (74-106); Osmolality,Calculated 281 (275-295); Potassium 3.8 mMol/L (3.4-5.1); Sodium 141 mMol/L (136-145); Total Protein 7.9 gm/dL (5.7-8.2); eGFR > 60 See Note
[2025-05-24 16:29] LABS: CA 15-3 63.5 U/mL (<32.4)
== END | disposition home or self-care (01) ==
PROVIDERS: PCP Family Medicine; Referring Provider Internal Medicine Hematology & Oncology; Visit Provider Internal Medicine Hematology & Oncology
DX: C50.512 Malignant neoplasm of lower-outer quadrant of left female breast (principal); C79.51 Secondary malignant neoplasm of bone
CPT/HCPCS: 36415; 80053; 85025; 86300

== ENCOUNTER → 2025-05-30 | Outpatient (CLI) | payer MEDICARE, MEDICAID, SELFPAY ==
--- NOTE | 2025-05-30 15:30 | ECHO_ITS ---
Patient Info Name: Steff Traore Age: 84 years : 1940 Gender: Female Ht: 165 cm Wt: 63 kg BSA: 1.71 m2 BP: 125 / 60 mmHg HR: 73 bpm Exam Date: 05/30/2025 4:46 PM Admit Date: 05/30/2025 Site: [facility] Room Number: OP Patient Status: O Technical Quality: Fair Exam Type: CA echo doppler complete Feller Buncher Operator: Anayeli Cruz Ordering Physician: Yohan Ramirez Referring Physician: Yohan Ramirez Study Info Indications Malignant neoplasm of lower-outer quadrant of left female br - Primary Location: SDIM Left Ventricular Outflow Tract Name Value Normal LVOT 2D LVOT Diameter 1.9 cm LVOT Doppler LVOT Peak Velocity 131 cm/s LVOT Mean Gradient 4 mmHg LVOT VTI 31 cm LVOT VTI/AV VTI Ratio 0.9 LVOT Stroke Volume 88 ml Pulmonic Valve Name Value Normal PV Doppler PV Peak Velocity 99 cm/s Mitral Valve Name Value Normal MV Doppler MV Decel [place] 249 cm/s2 MV PHT 100 ms MV Area (PHT) 2.2 cm2 4.0-5.0 MV Diastolic Function MV E Peak Velocity 86 cm/s MV A Peak Velocity 107 cm/s MV E/A 0.8 MV Annular TDI MV Septal e' Velocity 6.4 cm/s MV E/e' (Septal) 13.4 MV Lateral e' Velocity 7.7 cm/s MV E/e' (Lateral) 11.1 MV e' Average 7.07 cm/s MV E/e' (Average) 12.3 Tricuspid Valve Name Value Normal TV Regurgitation Doppler TR Peak Velocity 202 cm/s Estimated PAP/RSVP RA Pressure 3 mmHg <=5 PA Systolic Pressure 19 mmHg <36 RV Systolic Pressure 19 mmHg <36 TV Annular TDI TV Lateral Jo Ann s' Velocity 13.9 cm/s >=9.5 Aortic Valve Name Value Normal AV 2D/MM AV Cusp Sep (MM) 1.6 cm AV Doppler AV Peak Velocity 151 cm/s AV Mean Gradient 6 mmHg AV VTI 35 cm AV Area (Cont Eq VTI) 2.5 cm2 >=3.0 AV Area (Cont Eq Cyrus) 2.5 cm2 AV DI (Cyrus) 0.87 AV Regurgitation 2D LVOT Area 2.8 cm2 Ventricles Name Value Normal LV Dimensions 2D/MM IVS Diastolic Thickness (2D) 1.1 cm 0.6-0.9 LVID Diastole (2D) 4.1 cm 3.8-5.2 LVIW Diastolic Thickness (2D) 1.2 cm 0.6-0.9 LVID Systole (2D) 2.7 cm 2.2-3.5 LVOT Diameter 1.9 cm LV Mass (2D Cubed) 161.36 g 67.00-162.00 LV Mass Index (2D Cubed) 95 g/m2 43-95 Relative Wall Thickness (2D) 0.59 <=0.42 IVS/LVIW Diastolic Thickness (2D) 0.92 0.00-1.50 LV Fractional Shortening/Ejection Fraction 2D/MM LV Fractional Shortening (2D) 34 % 27-45 LV EF (2D Teichholz) 64 % RV Dimensions 2D/MM TV Lateral Jo Ann s' Velocity 13.9 cm/s >=9.5 Atria Name Value Normal LA Dimensions LA Volume (4C A-L) 56 ml LA Volume (BP A-L) 59 ml Left Ventricle Left ventricular chamber dimension is normal. Left ventricular systolic function is normal with visually estimated ejection fraction of 60-65%. There is mild concentric hypertrophy noted in the left ventricle. Left ventricular segmental wall motion is normal. There is grade I diastolic dysfunction in the left ventricle. Right Ventricle Right ventricular chamber dimension is normal. Right ventricular systolic function is normal. Left Atrium Left atrial chamber dimension is mildly enlarged. Right Atrium Right atrial chamber dimension is normal. Aortic Valve The aortic valve is trileaflet. There is mild aortic valve sclerosis. There is no aortic valve stenosis with a peak velocity of 151 cm/s, mean gradient of 6 mmHg, and aortic valve area of 2.5 cm2. There is no aortic valve regurgitation. Pulmonic Valve The pulmonic valve is normal. There is no pulmonic valve stenosis. There is no pulmonic regurgitation. Mitral Valve The mitral valve has a calcified annulus. There is no mitral valve stenosis. There is mild mitral valve regurgitation. Tricuspid Valve The tricuspid valve leaflets are normal. There is no tricuspid valve stenosis. There is mild to moderate tricuspid valve regurgitation. No pulmonary hypertension, estimated pulmonary arterial systolic pressure is 19 mmHg and systemic blood pressure of 125 mmHg in systole. Pericardium/Pleural The pericardium appears normal. There is no pericardial effusion. No pleural effusion visualized. Inferior Vena Cava Normal inferior vena cava with >50% collapse upon inspiration consistent with normal right atrial pressure, 3 mmHg. Aorta The aortic measurements are indexed to age and body surface area. The aortic root at the sinus of Valsalva is not well visualized. The prox ascending aorta is not well visualized. Summary 1. Left ventricle size is normal and systolic function is normal. Estimated ejection fraction is 60-65%. There is grade I diastolic dysfunction. There is mild concentric hypertrophy noted. 2. Right ventricle chamber size is normal and systolic function is normal. Estimated RVSP is 19 mmHg. 3. There is mild aortic valve sclerosis with no stenosis. 4. There is mild to moderate tricuspid valve regurgitation. mild MR and mild MAC. 5. The left atrium is mildly enlarged. The right atrium is normal. 6. Prior study from 02/24/2025. Report Signatures Finalized by Clinton Brooks on 05/30/2025 07:34 PM
== END | disposition home or self-care (01) ==
PROVIDERS: PCP Nurse Practitioner Family; Referring Provider Internal Medicine Hematology & Oncology; Visit Provider Internal Medicine Hematology & Oncology
DX: I50.30 Unspecified diastolic (congestive) heart failure (principal); I35.8 Other nonrheumatic aortic valve disorders; I07.1 Rheumatic tricuspid insufficiency; C50.512 Malignant neoplasm of lower-outer quadrant of left female breast
CPT/HCPCS: 93306

== ENCOUNTER → 2025-06-13 | Outpatient (CLI) | payer MEDICARE, MEDICAID, SELFPAY ==
[2025-06-13 11:48] LABS: Basophils # (Auto) 0.1 Thou/mm3 (0.0-0.2); Basophils % (Auto) 3 % (0-2.5); Eosinophils # (Auto) 0.1 Thou/mm3 (0.0-0.5); Eosinophils % (Auto) 2 % (0-10); Hematocrit 32.1 % (36.0-46.0); Hemoglobin 10.9 g/dL (12.0-16.0); Immature Granulocytes Auto 0.00 Thou/mm3 (0.00-0.00); Lymphocytes # (Auto) 1.4 Thou/mm3 (1.0-4.8); Lymphocytes % (Auto) 34 % (10-50); Mean Corpuscular HGB Conc 34.0 g/dl (31.0-37.0); Mean Corpuscular Hemoglobin 28.5 pg (25.0-35.0); Mean Corpuscular Volume 84 fL (80-100); Monocytes # (Auto) 0.7 Thou/mm3 (0.0-0.8); Monocytes % (Auto) 16 % (0-12); Neutrophils # (Auto) 1.9 Thou/mm3 (1.8-7.7); Neutrophils % (Auto) 46 % (37-80); Nucleated Red Blood Cell # 0.00 Thou/mm3 (0.00-0.00); Nucleated Red Blood Cell % 0 /100 WBC (0); Platelet Count 221 Thou/mm3 (140-440); RDW Standard Deviation 53.2 fL (36.4-46.3); Red Blood Count 3.82 Miln/mm3 (4.00-5.20); White Blood Count 4.1 Thou/mm3 (3.6-11.0)
[2025-06-13 12:03] LABS: Alanine Aminotransferase 61 U/L (10-49); Albumin, Serum 4.0 gm/dL (3.4-4.8); Albumin/Globulin Ratio 1.2 (1.2-2.2); Alkaline Phosphatase 92 U/L (46-116); Anion Gap 11 (7-16); Aspartate Amino Transferase 78 U/L (0-34); BUN/Creatinine Ratio 16 Ratio (12-20); Bilirubin,Total 0.4 mg/dL (0.3-1.2); Blood Urea Nitrogen 14 mg/dL (9-23); Calcium 9.1 mg/dL (8.3-10.6); Calcium (Corrected) 9.1 mg/dL (8.5-10.1); Carbon Dioxide 25.2 mMol/L (20.0-31.0); Chloride 103 mMol/L (98-107); Creatinine (Component) 0.9 mg/dL (0.6-1.3); Globulin 3.4 gm/dL (2.3-3.5); Glucose 84 mg/dL (74-106); Osmolality,Calculated 277 (275-295); Potassium 3.9 mMol/L (3.4-5.1); Sodium 139 mMol/L (136-145); Total Protein 7.4 gm/dL (5.7-8.2); eGFR > 60 See Note
[2025-06-13 12:16] LABS: CA 15-3 49.2 U/mL (<32.4)
== END | disposition home or self-care (01) ==
PROVIDERS: PCP Nurse Practitioner Family; Referring Provider Internal Medicine Hematology & Oncology; Visit Provider Internal Medicine Hematology & Oncology
DX: C50.512 Malignant neoplasm of lower-outer quadrant of left female breast (principal); C79.51 Secondary malignant neoplasm of bone
CPT/HCPCS: 36415; 80053; 85025; 86300

== ENCOUNTER 2025-06-22 09:50 | Outpatient (RCR) | payer MEDICARE, MEDICAID, SELFPAY ==
--- NOTE | 2025-05-24 14:33 | CTCFLWUP_ITS ---
[facility] [address] [place], [place] [address] FOLLOW-UP NOTE Date: 05/24/2025 MR#: [id number] Name: JOLYNN WAY : 1940 Dx: C50.512 Malignant neoplasm of lower-outer quadrant of left female breast Identification. Patient has stage IV breast CA with bone mets currently on anastrozole and Kisqali. Recently completed SBRT to T9 area with good relief of symptoms. MRI ordered by Dr. Ramirez of abdomen 05/07/2025 revealed widespread lumbar vertebral bodies as well as first sacral segment and iliac bones. There appeared to be early epidural tumor posterior to the L3-L4 and L5 vertebral bodies measuring up to 3 mm in thickness impinging on the thecal sac. As I see patient today patient is having moderate pain and neuropathic symptoms as well. Patient is having moderate pain in her C-spine area but there are no neuropathic symptoms, who is C-spine MRI showing bone mets but no sign of any epidural involvement. Spoke to patient about using SBRT 5 fractions over a 2-week, similar to what she had in her T9 area which improved her symptoms and tolerated well. Side effects expressed consent signed. Electronically signed by: Bernabe Rosario M.D. 05/24/2025 2:31 PM
--- NOTE | 2025-05-24 14:34 | CTCTXPLN_ITS ---
[facility] [address] [place], [place] [address] Physician Clinical Treatment Planning Note Date of Service: 05/24/2025 Name: JOLYNN COLEMANLELIA Lynch.: 1940 The patient has agreed to proceed with Radiation therapy. Tests and supporting medical records were interpreted to assist in defining the tumor location and extent of disease. Further imaging will be necessary to contour and delineate the volume to which the XRT will be provided. A. Treatment Intent: Palliative B. Modality: 6 MV C. Requested Technique: SBRT D. Treatment Site: L2-3-4 E. Critical structures to be contoured on plan: F. In order to accomplish this plan, I am ordering/Prescribing the followin. Simulations (s) will be performed to accomplish a reproducible treatment position, to determine optimal treatment portals/beam arrangements, to design beam modifying devices and verify treatment portals on patient prior to the commencement of Radiation Therapy. 2. Devices; for immobilization and beam shapin. CT Guidance for placement of XRT medina Scan area: 4. Portal images Frequency: 5. Invivo transit dose measurement once per week on all VMAT patients. 6. Special Physics Consult Requested for: SBRT 7. Other requests: G. Dose Objectives: Palliative Electronically signed by: Bernabe Rosario M.D. 05/24/2025 2:32 PM
--- NOTE | 2025-05-24 14:37 | CTCTXPLNST_ITS ---
Radiation Oncology Treatment Planning Sheet Name: JOLYNN WAY MR#: [id number] : 1940 Dx: C50.512 Malignant neoplasm of lower-outer quadrant of left female breast Date of Service: 05/24/2025 Account #: ?? Pt Treatment Intent: curative palliative other: Stage: Procedure CPT # Ordered Spec. Procedure 41622 SBRT 1 Contreras Complex (set-up) 27098 L1-L5(treating L2-4) 1 Contreras Simple 49559 IMRT Plan 46387 1 MLC Devices VMAT 83485 8 Contreras 3 D 27227 TRTMT dev Complex 91980 vaklok 1 TRTMT dev simple 90474 Basic Mega 30915 7 Special Dosimetry 97800 Spec Physics 43077 1 Port Films 75053 SRS Cranial/1FX 05686 SBR 5 FX or Less /ex: 5 = 5 fx 72882 2500 5 IMRT Simple 01687 IMRT Complex 29413 IGRT 26197 5 Rad del com 6-10 46183 Rad del com 11-19 48475 Cont Med Physics 12756 3 Treatment Planning 02981 1 Weekly Evaluation 47755 3 Rad del com 20 mev 21664 Special Port Plan 85005 TRTMT dev inter 75122 Isodose Complex 69671 Isodose simple 34711 Resp Motion Mgmt Simulation 10743 Placement of Fiducial Markers 40508 Electronically Signed By: Bernabe Rosario MD, DABR 05/24/2025 2:35 PM
--- NOTE | 2025-06-25 21:45 | CTCFLWUP_ITS ---
Patient: JOLYNN WAY : 1940 Page 4 of 5 FOLLOW UP NOTE DATE OF SERVICE: 06/21/2025 NAME: JOLYNN WAY ACCOUNT: [id number] : 1940 AGE: 84 INTERVAL HISTORY: Patient is taking anastrozole and Kisqali. Denies any complaints from the medication. Patient also receiving palliative radiation with Dr. 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 Patient had breast surgery after a lot of delay and was eventually found to have advanced breast cancer. She have metastatic disease in bones. She have no visceral mets. EKG and ECHO reviewed and are stable. 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 Tobacco Use:?Quit 40yrs ago - Smoked for 6-7months- 2-3 cigarettes/day ETOH?Use:?SOCIAL Drug?Note:?DENIES Social History Note:?LIVES WITH SON AND DAUGHTER IN [employer] HISTORY: Menarche?-?Age:?16 Menopause:?37 Hormone?Use:?DENIES :?5 Live?Births:?5 Age?1st?:?22 MEDICATIONS: 1. Arimidex - 1 mg 1 tab Daily 2. hydrochlorothiazide - 25 mg Daily 3. Kisqali - 400 mg/day (200 mg x 2) 2 tab Daily 4. losartan - 50 mg Daily 5. melatonin - 5 mg Daily 6. ondansetron HCl - 8 mg 1 tab every 8 hours prn nausea 7. pantoprazole - 40 mg 1 tab Daily 8. potassium chloride - 20 mEq 1 tab Daily 9. ribociclib - 400 mg/day (200 mg x 2) 2 tab Daily 10. traMADol - 50 mg 1 tab four times a day Medications Last Reconciled by Amanda Smith MD on 06/21/2025 ALLERGIES: No Known Drug Allergies REVIEW OF SYSTEMS: A complete 14-point review of systems was performed and is negative except as noted in interval history. PHYSICAL EXAMINATION: VITAL SIGNS: Temperature?98.3, B/P?106/61, Oxygen?Saturation?96% Weight?138?lbs (Change?since?05/26/25:?-0.8?lbs) PAIN: 0 - No pain ECOG Performance Status: 1 - Symptomatic; ambulatory; restricted in strenuous activity GENERAL APPEARANCE: Appears well, in no apparent distress, appropriately interactive. HEENT: Normocephalic, no temporal wasting, normal conjunctiva, no scleral icterus, normal hearing, lips without lesions, neck normal range of motion. CARDIOVASCULAR: Not assessed. PULMONARY: Normal respiratory effort, no respiratory distress or use of accessory muscles, speaking in full sentences, no tachypnea. EXTREMITIES: No pedal edema or cyanosis. SKIN: Normal skin appearance. NEUROLOGIC: Alert and oriented x4. PSHYCHIATRIC: Appropriate affect, mood normal, behavior normal, intact thought and speech. Breast site shows mastectomy clean with the park. Lymphedema present on the arm with visible swelling LABORATORY DATA: I have personally reviewed and interpreted each of the patient?s relevant lab tests, abnormal findings are below: Date 05/24/25 06/13/25 ??WHITE?BLOOD?COUNT?(Thou/mm3) 4.2 4.1 ??RED?BLOOD?COUNT?(Miln/mm3) 4.13 3.82?L ??HEMOGLOBIN?(gm/dl) 11.3?L 10.9?L ??HEMATOCRIT?(%) 35.0?L 32.1?L ??PLATELET?COUNT?(Thou/mm3) 316 221 ??NEUTROPHILS?%,?AUTO?(%) 63 46 ??LYMPH?%,?AUTO?(%) 26 34 ??NEUTROPHILS,?AUTO?(Thou/mm3) 2.6 1.9 ??GLUCOSE,RANDOM?(mg/dL) 93 84 ??BLOOD?UREA?NITROGEN?(mg/dL) 14 14 ??CREATININE?(mg/dL) 0.90 0.90 ??SODIUM?(mmol/L) 141 139 ??POTASSIUM?(mmol/L) 3.8 3.9 ??CHLORIDE?(mmol/L) 104 103 ??CrCl?(CandG)?(ml/min) 47.62 47.90 ??AST/SGOT?(Unit/L) 101?H 78?H ??ALT/SGPT?(Unit/L) 134?H 61?H ??ALKALINE?PHOSPHATASE?(Unit/L) 93 92 ??BILIRUBIN,?TOTAL?(mg/dL) 0.6 0.4 ??PROTEIN?TOTAL?(gm/dl) 7.9 7.4 ??ALBUMIN,?SERUM?(gm/dl) 4.7 4.0 ??GLOBULIN?(gm/dl) 3.2 3.4 ??ALBUMIN/GLOBULIN?RATIO 1.5 1.2 ??CALCIUM,?SERUM?(mg/dL) 9.5 9.1 ??CALCIUM?SERUM?(CORRECTED)?(mg/dL) 9.5 9.1 ASSESSMENT/PLAN: stage 4 breast cancer ER positive HER2 negative Patient have at least stage IV PET CT scan and brain MRI shows bone disease Advised to take vitamin D daily Xgeva for extensive bone mets Continue kisqali at 400mg and anastrazole Patient is having a great response to treatment as tumor marker is almost half Continue current therapy Continue radiation RTC in 2 months ORDERS: Order # Description [id number] PET/CT of Skull to mid-thigh for Restaging RETURN TO CLINIC: I reviewed the diagnosis, prognosis, and recommended treatment/procedure options with the patient (and/or their legal associate financial representative), including the potential benefits, risks, side effects and alternative therapies. We also discussed the option of no treatment and the possibility of clinical trial participation, if applicable. All questions were addressed, and they demonstrated understanding. They provided informed consent to proceed with the proposed plan of care. BILLING AND COMPLIANCE: I reviewed external records from providers outside my specialty as summarized above. I spent a total of 50 minutes on this patient?s care on the day of their visit excluding time spent related to any billed procedures. This time includes time spent with the patient as well as time spent documenting in the medical record, reviewing patients records and tests, obtaining history, placing orders, communicating with other healthcare professionals, counseling the patient, family or caregiver, and/or care coordination for the diagnoses above. Electronically Signed by: {Object.Sanct_ID*PnP.NameFL@M}, {Object.Sanct_ID*PnP.Suffix@U} D: {Object.Sanct_Date} T: {Object.Sanct_Time} CC: PCP: Swati([facility])[place] Referring: Swati([facility])[place] This document was completed utilizing speech recognition software. Grammatical errors, random word insertions, pronoun errors, and incomplete sentences are an occasional consequence of this system due to software limitations, ambient noise, and hardware issues. Any formal questions or concerns about the content, text or information contained within the body of this dictation should be directly addressed to the provider for clarification.
== END 2025-06-22 23:59 | disposition home or self-care (01) ==
LOC: SCTC 09:50
PROVIDERS: PCP Nurse Practitioner Family; Referring Provider Nurse Practitioner Family; Visit Provider Internal Medicine Hematology & Oncology
DX: Z51.0 Encounter for antineoplastic radiation therapy (principal); C50.512 Malignant neoplasm of lower-outer quadrant of left female breast; C79.51 Secondary malignant neoplasm of bone; Z17.0 Estrogen receptor positive status [ER+]; Z17.21 Progesterone receptor positive status; Z17.32 Human epidermal growth factor receptor 2 negative status; Z79.811 Long term (current) use of aromatase inhibitors; Z90.12 Acquired absence of left breast and nipple
CPT/HCPCS: 36415; 77014; 77290; 77300; 77301; 77334; 77336; 77338; 77373; 77387; 77470; 80053; 85025; 86300; 96372; 99213; J0897; Q3014; G0463